=== PATIENT | female | born 1970 | race Caucasian/White ===

== ENCOUNTER 2019-06-22 17:29 | Emergency (ER) | payer OTHER ==
[~2019-06-22] VITALS: Ht 139.7 cm; Wt 61.2 kg
[~2019-06-22 17:29] MED LIST: CELEXA20 MG PO; FLORASTOR250 MG; PANTOPRAZOLE SO40 MG; PRILOSEC20 MG; PRINIVIL10 MG PO; REGLAN10 MG; Z.0.BENAZEPRIL HCL10 PO; Z.0.GABAPENTIN100 MG PO; apriso; celexa; diovan
[2019-06-22] MEDS ORDERED: CYMBALTA20 MG PO (17:49)
[2019-06-22] MEDS ORDERED: NIFEDIPINE ER30 MG PEG (17:49)
[2019-06-22 18:08] LABS: BASOPHILS # (AUTO) 0.1 (0.0-0.1); BASOPHILS % 0.7 % (0.0-1.0); EOSINOPHILS # (AUTO) 0.5 (0.0-0.4); EOSINOPHILS % 5.6 % (0.0-6.0); HEMATOCRIT 40.9 % (34.2-44.1); LYMPHOCYTES # (AUTO) 2.4 (1.0-3.2); LYMPHOCYTES % 26.1 % (18.0-39.1); MEAN CORPUSCULAR HEMOGLOBIN 29.2 pg (28-32); MEAN CORPUSCULAR HGB CONC 34.2 g/dL (31-35); MEAN CORPUSCULAR VOLUME 85.4 fL (81-99); MONOCYTES # (AUTO) 0.4 (0.2-0.8); MONOCYTES % 4.8 % (4.4-11.3); NEUTROPHILS # (AUTO) 5.7 (2.1-6.9); NEUTROPHILS % 62.5 % (38.7-80.0); PLATELET COUNT 303 x10e3/uL (140-360); RED BLOOD COUNT 4.79 x10e6/uL (3.6-5.1); RED CELL DISTRIBUTION WIDTH 13.4 % (11.7-14.4)
[2019-06-22 18:13] LABS: INR 0.83; PROTHROMBIN TIME 11.9 seconds (11.9-14.5)
[2019-06-22 18:14] LABS: PARTIAL THROMBOPLASTIN TIME 25.3 seconds (23.8-35.5)
[2019-06-22 18:23] LABS: ALANINE AMINOTRANSFERASE 50 IU/L (0-55); ALBUMIN 4.1 g/dL (3.5-5.0); ALBUMIN/GLOBULIN RATIO 1.3 (0.8-2.0); ALKALINE PHOSPHATASE 115 IU/L (40-150); ANION GAP 14.4 mmol/L (8-16); BLOOD UREA NITROGEN 11 mg/dL (7-26); BUN/CREATININE RATIO 15 (6-25); CALCIUM 9.8 mg/dL (8.4-10.2); CARBON DIOXIDE 24 mmol/L (22-29); CHLORIDE 102 mmol/L (98-107); CREATINE KINASE 85 IU/L (29-168); CREATININE, SERUM 0.71 mg/dL (0.57-1.11); EST GLOMERULAR FILTRATION RATE > 60 ML/MIN (60-); GLUCOSE 103 mg/dL (74-118); POTASSIUM 3.4 mmol/L (3.5-5.1); SODIUM 137 mmol/L (136-145)
--- NOTE | 2019-06-22 18:30 | Diagnostic Imaging Report ---
EXAMINATION: Head CT HISTORY: Alteration of consciousness, confusion, memory loss COMPARISON: None. TECHNIQUE: Multidetector axial images were obtained without contrast from the foramen magnum to the vertex . The images were reconstructed using brain and bone algorithms. Thin section brain images were reformatted into coronal and sagittal planes. Image quality: Motion/streaking artifact limits the evaluation of the skull base and posterior cranial fossa. Dose modulation, iterative reconstruction, and/or weight based adjustment of the mA/kV was utilized to reduce the radiation dose to as low as reasonably achievable. FINDINGS: Parenchyma: 1. No abnormal densities. 2. No mass or hemorrhage. No CT evidence of acute territorial vascular insult. Extra-axial spaces:No abnormal density. No extra-axial fluid collections Brain volume: Normal for age. Ventricles: No hydrocephalus or displacement. Arteries: No density suggestive of thrombus. Dural sinuses: No abnormal density. Extra-axial spaces: No abnormal density. Incidentally noted tiny Foramen magnum: No mass, Chiari malformation, or basilar invagination. Sella: No obvious mass. Paranasal/mastoid sinuses: Imaged portions unremarkable. Skull/Scalp: No lytic or blastic lesions. No fractures. IMPRESSION: Normal head CT. Signed by: Dr. Judy Hinkle M.D. on 06/22/2019 6:26 PM
[2019-06-22 18:40] LABS: AMPHETAMINES SCREEN,URINE NEGATIVE (NEGATIVE); BENZODIAZEPINES SCREEN,URINE NEGATIVE (NEGATIVE); CLARITY,URINE SL CLOUDY (CLEAR); COLOR,URINE YELLOW (YELLOW); KETONES,URINE NEGATIVE (NEGATIVE); LEUKOCYTE ESTERASE ,URINE NEGATIVE (NEGATIVE); NITRITE,URINE NEGATIVE (NEGATIVE); PHENCYCLIDINE SCREEN,URINE NEGATIVE (NEGATIVE); PROTEIN,URINE DIPSTICK NEGATIVE (NEGATIVE)
[2019-06-22 18:41] LABS: BILIRUBIN,URINE NEGATIVE (NEGATIVE); URINE UROBILINOGEN 0.2 mg/dL (0.2 - 1)
[2019-06-22 18:51] LABS: BACTERIA,URINE RARE /HPF; EPITHELIAL CELLS,URINE MODERATE /LPF
--- NOTE | 2019-06-22 18:52 | Diagnostic Imaging Report ---
EXAMINATION: CHEST 2 VIEWS INDICATION: ^confused ^[id number] ^[id number] COMPARISON: None FINDINGS: PA and lateral views TUBES and LINES: None. LUNGS: Lungs are well inflated. There is no evidence of pneumonia or pulmonary edema. PLEURA: No pleural effusion or pneumothorax. HEART AND MEDIASTINUM: The cardiomediastinal silhouette is unremarkable.. BONES AND SOFT TISSUES: No focal osseous lesions. Soft tissues are unremarkable. UPPER ABDOMEN: Cholecystectomy clips in the upper abdomen. IMPRESSION: No acute thoracic abnormality. Signed by: Dr. Ector Dutton MD on 06/22/2019 6:49 PM
== END 2019-06-22 19:30 | disposition home or self-care (01) ==
LOC: ER 17:29
DX: R41.82 Altered mental status, unspecified (principal); N30.91 Cystitis, unspecified with hematuria; E78.5 Hyperlipidemia, unspecified; I10 Essential (primary) hypertension; F32.9 Major depressive disorder, single episode, unspecified
CPT/HCPCS: 36415; 70450; 71046; 80053; 80307; 81001; 82550; 82553; 84484; 85025; 85610; 85730; 87086; 93005; 99283

== ENCOUNTER 2020-05-14 11:48 | Observation (INO) | payer BC, OTHER ==
[~2020-05-14] VITALS: Ht 139.7 cm; Wt 65.8 kg
[~2020-05-14 11:48] MED LIST changes: +CYMBALTA20 MG PO; +NIFEDIPINE ER30 MG PEG
[2020-05-14] MEDS ORDERED: KETOROLAC TROMETHAMINE 30 MG/ML VIAL IV NR (12:00)
[2020-05-14] MEDS ORDERED: ONDANSETRON HCL INJ 2MG/ML 2ML 2 MG/ML VIAL IV NR (12:00)
[2020-05-14] MEDS ORDERED: HYDRALAZINE HCL 20 MG/ML VIAL IV NR (12:00)
[2020-05-14] MEDS ORDERED: SODIUM CHLORIDE 0.9% 1000ML 1,000 ML IV STA (12:00)
[2020-05-14] MEDS ORDERED: PANTOPRAZOLE 40 MG 10ML VIAL IV NR (12:00)
[2020-05-14 12:21] LABS: BASOPHILS # (AUTO) 0.1 (0.0-0.1); BASOPHILS % 0.8 % (0.0-1.0); EOSINOPHILS # (AUTO) 0.5 (0.0-0.4); EOSINOPHILS % 5.9 % (0.0-6.0); HEMATOCRIT 40.5 % (34.2-44.1); HEMOGLOBIN 13.7 g/dL (12.0-16.0); LYMPHOCYTES # (AUTO) 2.4 (1.0-3.2); LYMPHOCYTES % 28.4 % (18.0-39.1); MEAN CORPUSCULAR HEMOGLOBIN 28.8 pg (28-32); MEAN CORPUSCULAR HGB CONC 33.8 g/dL (31-35); MEAN CORPUSCULAR VOLUME 85.3 fL (81-99); MONOCYTES # (AUTO) 0.5 (0.2-0.8); MONOCYTES % 6.4 % (4.4-11.3); NEUTROPHILS # (AUTO) 4.9 (2.1-6.9); NEUTROPHILS % 58.1 % (38.7-80.0); PLATELET COUNT 309 x10e3/uL (140-360); RED BLOOD COUNT 4.75 x10e6/uL (3.6-5.1); RED CELL DISTRIBUTION WIDTH 13.4 % (11.7-14.4)
[2020-05-14 12:30] LABS: INR 0.84; PROTHROMBIN TIME 11.9 seconds (11.9-14.5)
[2020-05-14 12:31] LABS: PARTIAL THROMBOPLASTIN TIME 24.6 seconds (23.8-35.5)
[2020-05-14 12:38] LABS: ALANINE AMINOTRANSFERASE 93 IU/L (0-55); ALBUMIN 3.9 g/dL (3.5-5.0); ALBUMIN/GLOBULIN RATIO 1.3 (0.8-2.0); ALKALINE PHOSPHATASE 128 IU/L (40-150); ANION GAP 12.2 mmol/L (8-16); BLOOD UREA NITROGEN 9 mg/dL (7-26); BUN/CREATININE RATIO 13 (6-25); CALCIUM 9.8 mg/dL (8.4-10.2); CARBON DIOXIDE 29 mmol/L (22-29); CHLORIDE 103 mmol/L (98-107); CREATINE KINASE 80 IU/L (29-168); CREATININE, SERUM 0.69 mg/dL (0.57-1.11); EST GLOMERULAR FILTRATION RATE > 60 ML/MIN (60-); GLUCOSE 105 mg/dL (74-118); MAGNESIUM 2.1 MG/DL (1.3-2.1); POTASSIUM 3.2 mmol/L (3.5-5.1); SODIUM 141 mmol/L (136-145)
--- NOTE | 2020-05-14 12:54 | Diagnostic Imaging Report ---
History: 49-year-old female with headaches, high blood pressure Comparison studies: Head CT 06/22/2019 Technique: Axial images were obtained from the skull base to the vertex. Coronal and sagittal reconstructions obtained from the axial data. Dose modulation, iterative reconstruction, and/or weight based adjustment of the mA/kV was utilized to reduce the radiation dose to as low as reasonably achievable. Intravenous contrast: None Findings: Scalp/skull: No abnormalities. No fractures, blastic or lytic lesions. 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 No other mass or fluid collection. Brain sulci: Appropriate size for patient's age. Ventricles: Normal in size and configuration. No hydrocephalus. Parenchyma: No abnormal densities. No masses, hemorrhage, acute or chronic cortical vascular insults. Sellar/suprasellar region: Partial empty sella is is nonspecific and is unchanged from 06/22/2019. Craniocervical junction: Patent foramen magnum. No Chiari one malformation. IMPRESSION: No acute abnormalities. A preliminary report was provided by Dr. Villasenor on 05/14/2020 at 12:[address] Harrell agrees with the preliminary findings of this report. Signed by: Dr. Nikhil Harrell M.D. on 05/14/2020 12:57 PM
--- NOTE | 2020-05-14 13:29 | Emergency Department Note ---
History of Present Illnes History of Present Illness Chief Complaint: Hypertension History of Present Illness This is a 49 year old female LAST NIGHT PATIENT BEGAN HAVING PAIN TO ENTIRE BODY, "SQUEEZING" ON CHEST. HEADACHE. N/V AFTER BREAKFAST. C/O OF ELEVATED BP @HOME (194/107). 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 Matcher Operator Required: No Onset (how long ago): day(s) (STARTED LAST NIGHT ~2129) Location: ALL OVER ACHY, SQUEEZING IN CHEST Quality: ACHY/SQUEEZING Radiation: Reports non-radiation Severity: severe Onset quality: gradual Timing of current episode: constant Progression: unchanged Chronicity: new Context: Denies recent illness Relieving factors: none Exacerbating factors: none Associated symptoms: Reports chest pain, Reports headaches, Reports malaise, Reports nausea/vomiting Treatments prior to arrival: none Past Medical/Family History Physician Review I have reviewed the patient's past medical and family history. Any updates have been documented here. Past Medical History Recent Fever: No Clinical Suspicion of Infectio: No New/Unexplained Change in Ment: No Past Medical History: Hypertension, Depression, Hyperlipedemia Past Surgical History: Cholecysctectomy, Hysterectomy Other Surgery: KNEE, RENAL STENT Social History Smoking Cessation: Never Smoker Counseling Performed: No Alcohol Use: None Any Illegal Drug Use: No TB Exposure/Symptoms: No Physically hurt or threatened: No Family History Family history of heart diseas: No Other Last Tetanus: UNKOWN Any Pre-Existing Lines (PICC,: No Review of Systems Review of Systems Constitutional: Reports as per HPI, Reports malaise EENTM: Reports no symptoms Cardiovascular: Reports as per HPI Respiratory: Reports no symptoms Gastrointestinal: Reports no symptoms Genitourinary: Reports no symptoms Musculoskeletal: Reports no symptoms Integumentary: Reports no symptoms Neurological: Reports as per HPI, Reports headache Psychological: Reports no symptoms Endocrine: Reports no symptoms Hematological/Lymphatic: Reports no symptoms Review of other systems: All other systems negative Physical Exam Related Data Allergies: Coded Allergies: cefotaxime (Verified Allergy, Severe, ARTHYMIA/RASH, 07/22/12) ofloxacin (Verified Allergy, Severe, ARRTHYMIA/RASH, 07/22/12) codeine (Verified Allergy, Mild, FAINT/VOMIT, 07/22/12) Triage Vital Signs Vital Signs Date Time Temp Pulse Resp B/P (MAP) Pulse Ox O2 Delivery O2 Flow Rate FiO2 05/14/20 11:51 98.1 58 18 175/93 100 Room Air Vital signs reviewed: Yes Physical Exam CONSTITUTIONAL Constitutional: Present well-developed, Present well-nourished HENT HENT: Present normocephalic, Present atraumatic, Present oropharynx clear/moist, Present nose normal HENT L/R: Present left ext ear normal, Present right ext ear normal EYES Eyes: Reports PERRL, Reports conjunctivae normal NECK Neck: Present ROM normal PULMONARY Pulmonary: Present effort normal, Present breath sounds normal CARDIOVASCULAR Cardiovascular: Present regular rhythm, Present heart sounds normal, Present capillary refill normal, Present normal rate GASTROINTESTINAL Abdominal: Present soft, Present nontender, Present bowel sounds normal GENITOURINARY Genitourinary: Present exam deferred SKIN Skin: Present warm, Present dry MUSCULOSKELETAL Musculoskeletal: Present ROM normal NEUROLOGICAL Neurological: Present alert, Present oriented x 3, Present no gross motor or sensory deficits; Absent cranial nerve deficit, Absent sensory deficit, Absent abnormal gait, Absent weakness PSYCHOLOGICAL Psychological: Present mood/affect normal, Present judgement normal Results Laboratory Result Diagram: 05/14/20 1213 05/14/20 1213 Laboratory Laboratory Tests Test 05/14/20 12:13 White Blood Count 8.34 x10e3/uL (4.8-10.8) Red Blood Count 4.75 x10e6/uL (3.6-5.1) Hemoglobin 13.7 g/dL (12.0-16.0) Hematocrit 40.5 % (34.2-44.1) Mean Corpuscular Volume 85.3 fL (81-99) Mean Corpuscular Hemoglobin 28.8 pg (28-32) Mean Corpuscular Hemoglobin Concent 33.8 g/dL (31-35) Red Cell Distribution Width 13.4 % (11.7-14.4) Platelet Count 309 x10e3/uL (140-360) Neutrophils (%) (Auto) 58.1 % (38.7-80.0) Lymphocytes (%) (Auto) 28.4 % (18.0-39.1) Monocytes (%) (Auto) 6.4 % (4.4-11.3) Eosinophils (%) (Auto) 5.9 % (0.0-6.0) Basophils (%) (Auto) 0.8 % (0.0-1.0) Neutrophils # (Auto) 4.9 (2.1-6.9) Lymphocytes # (Auto) 2.4 (1.0-3.2) Monocytes # (Auto) 0.5 (0.2-0.8) Eosinophils # (Auto) 0.5 (0.0-0.4) Basophils # (Auto) 0.1 (0.0-0.1) Absolute Immature Granulocyte (auto 0.03 x10e3/uL (0-0.1) Prothrombin Time 11.9 seconds (11.9-14.5) Prothromb Time International Ratio 0.84 Activated Partial Thromboplast Time 24.6 seconds (23.8-35.5) Sodium Level 141 mmol/L (136-145) Potassium Level 3.2 mmol/L (3.5-5.1) Chloride Level 103 mmol/L (98-107) Carbon Dioxide Level 29 mmol/L (22-29) Anion Gap 12.2 mmol/L (8-16) Blood Urea Nitrogen 9 mg/dL (7-26) Creatinine 0.69 mg/dL (0.57-1.11) Estimat Glomerular Filtration Rate > 60 ML/MIN (60-) BUN/Creatinine Ratio 13 (6-25) Glucose Level 105 mg/dL (74-118) Calcium Level 9.8 mg/dL (8.4-10.2) Magnesium Level 2.1 MG/DL (1.3-2.1) Total Bilirubin 0.4 mg/dL (0.2-1.2) Aspartate Amino Transf (AST/SGOT) 57 IU/L (5-34) Alanine Aminotransferase (ALT/SGPT) 93 IU/L (0-55) Alkaline Phosphatase 128 IU/L (40-150) Creatine Kinase 80 IU/L (29-168) Creatine Kinase MB 1.10 ng/mL (0-5.0) Troponin I 0.004 ng/mL (0-0.300) Total Protein 7.0 g/dL (6.5-8.1) Albumin 3.9 g/dL (3.5-5.0) Globulin 3.1 g/dL (2.3-3.5) Albumin/Globulin Ratio 1.3 (0.8-2.0) Lab results reviewed: Yes Imaging Imaging results reviewed: Yes Impressions History: 49-year-old female with headaches, high blood pressure Comparison studies: Head CT 06/22/2019 Technique: Axial images were obtained from the skull base to the vertex. Coronal and sagittal reconstructions obtained from the axial data. Dose modulation, iterative reconstruction, and/or weight based adjustment of the mA/kV was utilized to reduce the radiation dose to as low as reasonably achievable. Intravenous contrast: None Findings: Scalp/skull: No abnormalities. No fractures, blastic or lytic lesions. 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 No other mass or fluid collection. Brain sulci: Appropriate size for patient's age. Ventricles: Normal in size and configuration. No hydrocephalus. Parenchyma: No abnormal densities. No masses, hemorrhage, acute or chronic cortical vascular insults. Sellar/suprasellar region: Partial empty sella is is nonspecific and is unchanged from 06/22/2019. Craniocervical junction: Patent foramen magnum. No Chiari one malformation. IMPRESSION: No acute abnormalities. A preliminary report was provided by Dr. Villasenor on 05/14/2020 at 12:[address] Harrell agrees with the preliminary findings of this report. Signed by: Dr. Nikhil Harrell M.D. on 05/14/2020 12:57 PM EXAMINATION: CHEST SINGLE (PORTABLE) INDICATION: Chest pain. COMPARISON: Multiple prior chest x-rays including most recent on 06/22/2019 FINDINGS: TUBES and LINES: None. LUNGS: Normal lung volumes. Lungs are clear. No consolidations. PLEURA: No pleural effusion or pneumothorax. HEART AND MEDIASTINUM: The cardiomediastinal silhouette is unremarkable. BONES AND SOFT TISSUES: No acute osseous lesion. Soft tissues are unremarkable. UPPER ABDOMEN: No free air under the diaphragm. IMPRESSION: No acute thoracic radiographic abnormality. Signed by: Saqib Rowe MD on 05/14/2020 1:36 PM Procedures 12 Lead ECG Interpretation ECG Interpretation : ECG: ECG 1 Matcher Operator: Interpreted by ED physician Date: May 14, 2020 Time: 12:17 Rhythm: sinus bradycardia Rate: bradycardia BPM: 56 QRS axis: normal ST segments normal: Yes T wave inversion: V1 Other findings: LVH Clinical Impression: abnormal ECG Assessment & Plan Medical Decision Making MDM PT WITH H/O HTN & HLD PRESENTS W/ CP, N/V, ACHY ALL OVER AND HEADACHE - CHECK CBC, CHEM, ECG, CARDIACS, CXR, COVID SWAB, CT BRAIN - R/O STEMI/NSTEMI, RENAL INSUFF, DEHYDRATION, PNEUMONIA, COVID19, CEREBRAL BLEED. Reassessment Reassessment PT STILL VOMITING DESPITE ZOFRAN - WILL ADMIT FOR IVF'S, R/O ACS Assessment & Plan Final Impression: (1) Chest pain (2) Vomiting Depart Disposition: ADMITTED Last Vital Signs Date Time Temp Pulse Resp B/P (MAP) Pulse Ox O2 Delivery O2 Flow Rate FiO2 05/14/20 13:17 74 16 136/76 98 Room Air 05/14/20 11:51 98.1 Home Meds Reported Medications Nifedipine (NIFEDIPINE ER) 30 Mg Tablet.er, 1 TAB PEG DAILY 06/22/19 Duloxetine Hcl (CYMBALTA) 20 Mg Capcr, 20 MG PO DAILY, #30 CAP 06/22/19 Lisinopril (PRINIVIL) 10 Mg Tablet, 10 MG PO DAILY 01/09/14 Medications in the ED Pantoprazole Sodium 40 mg ONCE IV Last administered on 05/14/20at 12:54; Admin Dose 40 MG; Start 05/14/20 at 12:00; Stop 05/14/20 at 13:59 Ondansetron HCl 4 mg ONCE IV Last administered on 05/14/20at 12:54; Admin Dose 4 MG; Start 05/14/20 at 12:00; Stop 05/14/20 at 13:59 Sodium Chloride 1,000 ml @ 0 mls/hr Q0M STAT IV Last administered on 05/14/20at 12:54; Admin Dose 999 MLS/HR; Start 05/14/20 at 12:00; Stop 05/14/20 at 12:03; Status DC Hydralazine HCl 10 mg NOW IV Last administered on 05/14/20at 12:54; Admin Dose 10 MG; Start 05/14/20 at 12:00; Stop 05/14/20 at 13:59 Ketorolac Tromethamine 30 mg ONCE IV Last administered on 05/14/20at 12:54; Admin Dose 30 MG; Start 05/14/20 at 12:00; Stop 05/14/20 at 13:59 DANY STOKES MD May 14, 2020 13:29
[2020-05-14] MEDS ORDERED: KCL 20MEQ/.9 SOD CHL 1,000 ML IV ONE ×2 (13:30→14:15)
--- NOTE | 2020-05-14 13:39 | Diagnostic Imaging Report ---
EXAMINATION: CHEST SINGLE (PORTABLE) INDICATION: Chest pain. COMPARISON: Multiple prior chest x-rays including most recent on 06/22/2019 FINDINGS: TUBES and LINES: None. LUNGS: Normal lung volumes. Lungs are clear. No consolidations. PLEURA: No pleural effusion or pneumothorax. HEART AND MEDIASTINUM: The cardiomediastinal silhouette is unremarkable. BONES AND SOFT TISSUES: No acute osseous lesion. Soft tissues are unremarkable. UPPER ABDOMEN: No free air under the diaphragm. IMPRESSION: No acute thoracic radiographic abnormality. Signed by: Saqib Rowe MD on 05/14/2020 1:36 PM
--- NOTE | 2020-05-14 13:46 | NUR ---
patient up and walked to restroom, upont return patient stated she didnt feel well. assisted back into bed and back on monitor. notified ER MD of patient concern
[2020-05-14] MEDS ORDERED: PROMETHAZINE 12.5MG/ NACL 0.9% 12.5 MG/50 ML BAG IV ONE (14:00)
[2020-05-14] MEDS ORDERED: PROMETHAZINE 12.5MG/ NACL 0.9% 12.5 MG/50 ML BAG IV PRN (14:15)
[2020-05-14] MEDS ORDERED: ONDANSETRON HCL INJ 2MG/ML 2ML 2 MG/ML VIAL IV PRN (14:15)
[2020-05-14] MEDS ORDERED: ESCITALOPRAM OX10 MG PO (14:31)
[2020-05-14 15:16] LABS: BILIRUBIN,URINE NEGATIVE (NEGATIVE); CLARITY,URINE HAZY (CLEAR); COLOR,URINE YELLOW (YELLOW); KETONES,URINE NEGATIVE (NEGATIVE); LEUKOCYTE ESTERASE ,URINE NEGATIVE (NEGATIVE); NITRITE,URINE NEGATIVE (NEGATIVE); PROTEIN,URINE DIPSTICK NEGATIVE (NEGATIVE); URINE UROBILINOGEN 0.2 mg/dL (0.2 - 1)
--- NOTE | 2020-05-14 15:16 | NUR ---
Recieved patient from ER. Patient A/O x3, even respirations on RA. No s/s of distress. Call light in reach will continue to monitor.
[2020-05-14 15:20] LABS: RBC,URINE 0-5 /HPF (0-5); WBC,URINE (MAN) 0-5 /HPF (0-5)
[2020-05-14 15:21] LABS: AMORPHOUS SEDIMENT,URINE FEW (FEW); BACTERIA,URINE FEW /HPF; EPITHELIAL CELLS,URINE RARE /LPF
[2020-05-14 16:11] VITALS: BP 138/78
[2020-05-14 16:14] VITALS: BP 138/78
[2020-05-14 17:27] VITALS: BP 138/78
[2020-05-14] MEDS: ENOXAPARIN SOD INJ 40 MG/0.4 ML SYR SC SCH (17:50)
[2020-05-14 18:20] LABS: CREATINE KINASE 65 IU/L (29-168)
[2020-05-14 20:15] VITALS: BP 98/55
--- NOTE | 2020-05-14 20:37 | History and Physical ---
PCP: Dr. Esau Carrillo at [facility]. CHIEF COMPLAINT: Generalized weakness, headache, elevated blood pressure. HISTORY OF PRESENT ILLNESS: This is a 49-year-old female with past medical history of hypertension and high cholesterol, presented to the ER with complaints of generalized weakness, chest tightness, body aches, malaise, nausea, vomiting, headache for the past few days. Blood pressure at home this morning was 194/107. She reports she started feeling the symptoms on and took some medication and went to bed. Saturday has been worse. This morning, she woke up and has been nauseous, vomiting with severe headache. She denies any fever, chills, shortness of breath, cough, dysuria, hematuria, abdominal pain. She denies any ill contacts. She reports had tested positive on March 24 for COVID-19. She quarantined herself and felt better. She then called her PCP on April 23 a month later with complaints of shortness of breath. At that time, she reports was given steroids for possible post COVID syndrome. She reports was feeling okay right up until early this week. In the ER, CT brain was negative, chest x-ray was also unremarkable. Labs were unremarkable except for potassium of 3.2. She was given IV fluids, NSAIDs, and antiemetics. PAST MEDICAL HISTORY: 1. Hypertension. 2. COVID-19. PAST SURGICAL HISTORY: 1. Hysterectomy. 2. Renal stent. 3. Cyst removal from the knee. FAMILY MEDICAL HISTORY: Unknown. SOCIAL HISTORY: She denies any tobacco, alcohol, or illicit drug use. ALLERGIES: CODEINE, FLUOXETINE, AND SEVERAL TOXINS. REVIEW OF SYSTEMS: 12 systems reviewed and negative except as reported in HPI. PHYSICAL EXAMINATION: VITAL SIGNS: Temperature 98.8, pulse is 83, respirations 20, blood pressure 129/74, pulse ox is 99% on room air. GENERAL: Fatigue, malaise. HEENT: Normocephalic and atraumatic. NECK: Supple. LUNGS: Decreased breath sounds. CARDIOVASCULAR: Regular rate and rhythm. GI: Soft and nontender. NEUROLOGIC: Alert, awake, and oriented x3. MUSCULOSKELETAL: Moves all extremities. No edema. SKIN: Dry. PSYCH: Calm. LABORATORY DATA: WBC 8.34, hemoglobin 13.7, hematocrit 40.5, and platelets 309. Sodium 141, potassium 3.2, BUN 9, creatinine 0.69, estimated GFR is greater than 60, glucose 105, magnesium 2.1. AST 57, ALT 93, alkaline phosphate 128. CK 80, troponin I 0.004. Albumin 3.9. PT 11.9, INR 0.84, APTT 24.6. UA is negative. COVID PCR is positive. Urine culture pending. CT brain, no acute abnormalities. Chest x-ray, no acute thoracic radiographic abnormalities. IMPRESSION AND PLAN: 1. Accelerated hypertension. We will resume home dose of nifedipine and lisinopril. We will also treat with hydralazine IV as needed. 2. Coronavirus disease 2019. She was initially tested positive 7 weeks ago. ID and Pulmonary have been consulted. 3. Headache. CT brain negative. No dizziness, likely due to elevated blood pressure. We will continue to monitor closely. 4. Hypokalemia. We will replace and recheck. 5. Elevated LFTs. We will monitor. 6. Deep vein thrombosis prophylaxis, Lovenox subcu. Plan is to continue IV fluids, antiemetics, and we will trend troponins. We will check influenza A and B and echocardiogram for further evaluation. Dictated by PRICILLA Cole Tushar Garza MD MY/MODL /[id number]
--- NOTE | 2020-05-14 20:44 | NUR ---
Pulmonary [id number] thanks
--- NOTE | 2020-05-14 20:45 | NUR ---
PATIENT IS RESTING IN BED IN STABLE CONDITION, NO SIGNS OF RESPIRATORY DISTRESS NOTED. O2 SATURATION IS AT 97% ON ROOM AIR AND PATIENT VOICES NO PAIN AT THIS TIME. IV FLUIDS ARE RUNNING AT ORDERED RATE AND PATIENT VOICED UNDERSTANDING TO USE CALL LIGHT FOR ASSISTANCE. BED IS IN LOW POSITION, BOTH SIDE RAILS ARE UP, CALL LIGHT IS WITHIN EASY REACH, WILL CONTINUE TO MONITOR.
[2020-05-14 20:56] VITALS: BP 98/55
--- NOTE | 2020-05-14 22:27 | Consultation ---
DATE OF CONSULTATION: 05/14/2020 Pulmonary Medicine Consult REASON FOR REFERRAL: COVID syndrome. HISTORY OF PRESENT ILLNESS: Ms. Eddy is a pleasant 49-year-old female with shortness of breath. The patient recently got sick on March 19, 2020 which she had a fever symptoms. The patient had coronavirus test on March 24, 2020 and this was positive. The patient need to check herself quickly because of just the recent month before she had two close family members who were sick with coronavirus. The patient did not get any medications at the time as she had a relatively milder illness. However, now in the last two weeks, the patient has been having increasing shortness of breath. She did get some antibiotics and some prednisone from her doctor during this time. However, she has had propagation of the headaches, body aches, and blood pressure increased. Due to this worsening, she comes to the emergency room. No asthma, no allergies, no chronic lung disease. PAST MEDICAL HISTORY: Hypertension and hyperlipidemia. MEDICATIONS: Lisinopril, nifedipine, and escitalopram. ALLERGIES: CEFOTAXIME, CODEINE, AND OFLOXACIN. FAMILY HISTORY: Noncontributory. SOCIAL HISTORY: No smoking. No drinking. No drugs. 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 She lives with her and two teenage sons. REVIEW OF SYSTEMS: GENERAL: No weight changes. OPHTHALMOLOGIC: No vision changes. ENDOCRINE: No known thyroid disease. PULMONARY: No hemoptysis. CARDIAC: No heart attack. GI: No constipation. : No blood in urine. MUSCULOSKELETAL: No significant arthritis. DERMATOLOGIC: No rash. NEUROLOGIC: No seizure. PSYCHIATRIC: No depression. PHYSICAL EXAMINATION: GENERAL: The patient is without fever at this time. VITAL SIGNS: Noted per the chart record. Heart rate on presentation was 58, blood pressure 175/93, and 100% oxygen saturation on room air. GENERAL: In no acute distress, mildly anxious, but otherwise mostly unremarkable. HEENT: Normocephalic atraumatic. NECK: Supple. Throat midline. LUNGS: Bilateral air entry, limited, but clear. CARDIOVASCULAR: S1 and S2. No murmurs, rubs, or gallops. ABDOMEN: Soft, nontender, mildly obese. EXTREMITIES: No clubbing. No cyanosis. No edema. INTEGUMENT: No rash or purpura. LABORATORY DATA: CBC unremarkable with reasonable lymphocyte present. Coagulation time normal. Chemistry; potassium 3.2, creatinine 0.7, AST 57, and ALT 93. Alkaline phosphatase 128. Albumin 3.9, TSH is normal. Coronavirus PCR detected today. Influenza A and B antigens negative. Chest x-ray with clear lungs. Brain CT with no acute changes. IMPRESSION AND PLAN: 1. Syndrome of dyspnea, headache, elevated blood pressure, not otherwise specified. Possible sepsis, Post COVID syndrome, possible other. 2. Elevated LFTs. 3. Post COVID-19 infection, March 2020. 4. Nonspecific nausea, vomiting syndrome, gastroenteritis. 5. 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 6. Hypertension with emergency. 7. Hyperlipidemia. Recheck LFTs if trended. Check RSV testing for Respiratory syncytial virus. Follow up clinically. Follow up on IV fluid and potassium intake. We will check a few more biomarkers to ensure that this condition is suppressed and as of yet, there is no evidence of any active cytokine stone syndrome with isolated LFT elevation. We will follow the abnormal LFTs for any sign of any immunologic syndrome/cytokine storm syndrome that may have passed, but as of now, the elevated LFTs are in isolation. Thank you very much, Dr. Garza. Please call for questions. Fady Alvarado MD GMPeace/MODL /[id number]
[2020-05-15] VITALS (8 sets, daily range): BP systolic 112–153; BP diastolic 58–85
[2020-05-15] MEDS ORDERED: KCL 20MEQ/.9 SOD CHL 1,000 ML IV ONE
[2020-05-15] MEDS: ACETAMINOPHEN 325 MG TAB PO PRN ×2 (06:30→20:07)
--- NOTE | 2020-05-15 07:00 | NUR ---
Received patient resting in bed no s/s of distress. Bed low, wheels locked, side rails x2. Call light in reach will continue to monitor patient.
[2020-05-15 07:11] LABS: BASOPHILS # (AUTO) 0.1 (0.0-0.1); BASOPHILS % 0.6 % (0.0-1.0); EOSINOPHILS # (AUTO) 0.3 (0.0-0.4); EOSINOPHILS % 2.7 % (0.0-6.0); HEMATOCRIT 36.2 % (34.2-44.1); LYMPHOCYTES # (AUTO) 2.5 (1.0-3.2); LYMPHOCYTES % 27.1 % (18.0-39.1); MEAN CORPUSCULAR HEMOGLOBIN 28.7 pg (28-32); MEAN CORPUSCULAR HGB CONC 33.1 g/dL (31-35); MEAN CORPUSCULAR VOLUME 86.6 fL (81-99); MONOCYTES # (AUTO) 0.5 (0.2-0.8); NEUTROPHILS % 64.3 % (38.7-80.0); PLATELET COUNT 264 x10e3/uL (140-360); RED BLOOD COUNT 4.18 x10e6/uL (3.6-5.1)
[2020-05-15 08:19] LABS: ALBUMIN 3.2 g/dL (3.5-5.0); BILIRUBIN,DIRECT 0.2 mg/dL (0.0-0.5)
[2020-05-15 08:22] LABS: ALANINE AMINOTRANSFERASE 61 IU/L (0-55); ALBUMIN 3.1 g/dL (3.5-5.0); ALBUMIN/GLOBULIN RATIO 1.3 (0.8-2.0); ALKALINE PHOSPHATASE 92 IU/L (40-150); ANION GAP 10.6 mmol/L (8-16); BLOOD UREA NITROGEN 11 mg/dL (7-26); BUN/CREATININE RATIO 17 (6-25); CALCIUM 8.4 mg/dL (8.4-10.2); CARBON DIOXIDE 25 mmol/L (22-29); CHLORIDE 108 mmol/L (98-107); CHOL/HDL RATIO 4.9 (3.0-3.6); CHOLESTEROL 178 MD/DL (0-199); CREATINE KINASE 55 IU/L (29-168); CREATININE, SERUM 0.63 mg/dL (0.57-1.11); EST GLOMERULAR FILTRATION RATE > 60 ML/MIN (60-); GLUCOSE 104 mg/dL (74-118); HDL CHOLESTEROL 36 MG/DL (40-60); LDL CHOLESTEROL 109 MG/DL (60-130); POTASSIUM 3.6 mmol/L (3.5-5.1); SODIUM 140 mmol/L (136-145); TRIGLYCERIDES 166 MG/DL (0-149)
[2020-05-15] MEDS: ESCITALOPRAM OXALATE 10 MG TAB PO SCH (08:31)
[2020-05-15] MEDS: LISINOPRIL 10 MG TAB PO SCH (08:31)
[2020-05-15] MEDS: PANTOPRAZOLE 40 MG 10ML VIAL IV SCH (08:31)
[2020-05-15] MEDS: ASPIRIN 81 MG ENTERIC COATED PO SCH (08:31)
[2020-05-15] MEDS: NIFEDIPINE CR 30 MG TAB PO SCH (08:42)
[2020-05-15 08:44] LABS: FERRITIN 42.44 ng/mL (4.63-204.00)
[2020-05-15] MEDS ORDERED: NIFEDIPINE CR 30 MG TAB PO SCH (09:00)
[2020-05-15] MEDS ORDERED: METHYLPREDNISOLONE SOD SUCC 40 MG/ML VIAL 1ML IV SCH (11:15)
--- NOTE | 2020-05-15 13:13 | NUR ---
Generalized weakness, headache, elevated blood pressure. HISTORY OF PRESENT ILLNESS: This is a 49-year-old female with past medical history of hypertension and high cholesterol, presented to the ER with complaints of generalized weakness, chest tightness, body aches, malaise, nausea, vomiting, headache for the past few days. Blood pressure at home this morning was 194/107. She reports she started feeling the symptoms on and took some medication and went to bed. Saturday has been worse. This morning, she woke up and has been nauseous, vomiting with severe headache. She denies any fever, chills, shortness of breath, cough, dysuria, hematuria, abdominal pain. She denies any ill contacts. She reports had tested positive on March 24 for COVID-19. She quarantined herself and felt better. She then called her PCP on April 23 a month later with complaints of shortness of breath. At that time, she reports was given steroids for possible post COVID syndrome. She reports was feeling okay right up until early this week. In the ER, CT brain was negative, chest x-ray was also unremarkable. Labs were unremarkable except for potassium of 3.2. She was given IV fluids, NSAIDs, and antiemetics. PAST MEDICAL HISTORY: 1. Hypertension. 2. COVID-19. PAST SURGICAL HISTORY: 1. Hysterectomy. 2. Renal stent. 3. Cyst removal from the knee. FAMILY MEDICAL HISTORY: Unknown. SOCIAL HISTORY: She denies any tobacco, alcohol, or illicit drug use. ALLERGIES: CODEINE, FLUOXETINE, AND SEVERAL TOXINS. dictated
--- NOTE | 2020-05-15 13:57 | NUR ---
DATE 05/15/2020 Pulmonary Medicine Progress Note SUBJECTIVE: Ra fio2 97% saturation feels about the same LFTs mildly decreased from yesterday noted mild nausea REVIEW OF SYSTEMS: no headaches, no rash PHYSICAL EXAMINATION: VITAL SIGNS: Noted per the chart record. GENERAL: no acute distress, looks weak and with low energy HEENT: Normocephalic atraumatic. NECK: Supple. Throat midline. LUNGS: Bilateral air entry, limited, but clear. CARDIOVASCULAR: S1 and S2. No murmurs, rubs, or gallops. ABDOMEN: Soft, nontender, mildly obese. EXTREMITIES: No clubbing. No cyanosis. No edema. INTEGUMENT: No rash or purpura. LABORATORY DATA: ast 27, alt 61. other labs per EMR IMPRESSION AND PLAN: 1. Syndrome of dyspnea, headache, elevated blood pressure, not otherwise specified. Possible sepsis, possible Post COVID syndrome, possible other. 2. Elevated LFTs. 3. Post COVID-19 infection, March 2020. 4. Nonspecific nausea, vomiting syndrome, gastroenteritis. 5. 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 6. Hypertension with emergency. 7. Hyperlipidemia. There is a definite inflammatory process that is present. Recheck LFTs intermittently. Trial of moderate dose steroids for possible post COVID immunologic syndrome. If no competing diagnosis is found, patient can be considered for low dose prednisone (5-10 mg) for a few weeks Await CRP and fibrinogen markers RSV negative Any non-COVID inflammatory workup per designated (?mono, hepatitis, CTD, viral, other) if felt necessary to address at this time Thank you very much, Dr. Garza. Please call for questions.
--- NOTE | 2020-05-15 15:45 | Consultation ---
DATE OF CONSULTATION: REASON FOR CONSULTATION: COVID-19. HISTORY OF PRESENT ILLNESS: This patient is a 49-year-old female. She was diagnosed with COVID-19 back in March 15. The patient was doing well, few weeks later started to have some shortness of breath. She called her PCP, who gave her steroid and antibiotic azithromycin. She got better, but then she is just having fever, bad headache, so she came here. PAST MEDICAL HISTORY: History of hypertension, hypercholesteremia. PAST SURGICAL HISTORY: As above. ALLERGIES: NKA. SOCIAL HISTORY: There is no smoking, drug abuse, or alcohol abuse. FAMILY HISTORY: Otherwise, unremarkable. The patient comes into us with headache. Her blood pressure was elevated. PHYSICAL EXAMINATION: GENERAL: She is currently alert, oriented. VITAL SIGNS: Stable, currently afebrile. HEENT: She is not icteric. NECK: Supple. CHEST: Clear bilateral. HEART: S1, S2. ABDOMEN: Soft. Bowel sounds present. EXTREMITIES: No edema. LABORATORY DATA: Reviewed. White count 9.38, hemoglobin of 12. Her sodium of 140, potassium 3.6, creatinine 0.63. Liver enzyme within normal limit. ALT slightly elevated at 61. Her COVID-19 on May 14, 2019, came back positive. The patient as mentioned above, she is not hypoxemic, O2 saturation is 99% of room air. Her chest x-ray showed no acute finding on her chest CT, and she had a brain CT, which was negative. IMPRESSION: Fever and headache, probably due to viral. The patient has no fever since admission. She is not hypoxemic. Can discontinue steroid. Supportive care as ordered IV fluid. The patient will be discharged home with controlling her symptoms for headache and nausea as needed. She can take her home blood pressure medication. MD MELINDA Ling/HEMAL /[id number]
[2020-05-15] MEDS: ENOXAPARIN SOD INJ 40 MG/0.4 ML SYR SC SCH (18:02)
[2020-05-15] MEDS ORDERED: SODIUM CHLORIDE 0.9% 1000ML 1,000 ML IV SCH (19:30)
--- NOTE | 2020-05-15 20:21 | Progress Note ---
DATE: 05/15/2020 CONSULTANTS: 1. Dr. Loza, ID. 2. Dr. Alvarado, Pulmonology. SUBJECTIVE: The patient reports she is less nauseous today. She, however, feels like her body ache and headache has not improved much. She denies any chest pain, shortness of breath, cough, fever, or chills. OBJECTIVE: VITAL SIGNS: Temperature 98.1, pulse is 60, respirations 17, blood pressure 134/74, pulse ox is 97% on room air. GENERAL: No acute distress. HEENT: Normocephalic and atraumatic. NECK: Supple. LUNGS: Clear to auscultation. CARDIOVASCULAR: Regular rate and rhythm. GI: Soft and nontender. NEUROLOGIC: Alert, awake, and oriented x3. Fatigued. MUSCULOSKELETAL: Moves all extremities. SKIN: Dry. PSYCH: Calm. LABORATORY DATA: WBC 9.39, hemoglobin 12.0, hematocrit 36.2, and platelets 264. Sodium 140, potassium 3.6, BUN 11, creatinine 0.63, estimated GFR greater than 60, calcium 8.4, AST 26, ALT 61. CK 57, troponin I 0.001. Albumin 3.1, triglycerides 166. TSH 1.488. Influenza A and B negative. RSV negative. IMPRESSION: 1. Hypertension. Continue nifedipine and lisinopril. Blood pressure is stable now. 2. Post coronavirus disease 2019 syndrome. ID and Pulmonary on the case. Continue supportive care with pain management and antiemetics as needed. 3. Hypokalemia, replaced. 4. Elevated LFTs, trending down. 5. Questionable viral enteritis. Continue supportive care as needed. 6. Deep vein thrombosis prophylaxis, Lovenox subcu. PLAN: To continue supportive care, anticipate discharge home tomorrow if continues to improve. Dictated by PRICILLA Cole Tushar Garza MD MY/MODL /[id number]
[2020-05-15] MEDS: SODIUM CHLORIDE 0.9% 1000ML 1,000 ML IV SCH (23:45)
[2020-05-16 01:01] VITALS: BP 114/69
[2020-05-16 06:46] LABS: ALBUMIN 3.3 g/dL (3.5-5.0); BILIRUBIN,DIRECT 0.1 mg/dL (0.0-0.5)
[2020-05-16 08:14] VITALS: BP 114/69
[2020-05-16] MEDS: PANTOPRAZOLE 40 MG 10ML VIAL IV SCH (10:23)
[2020-05-16] MEDS: ASPIRIN 81 MG ENTERIC COATED PO SCH (10:23)
[2020-05-16] MEDS: ESCITALOPRAM OXALATE 10 MG TAB PO SCH (10:24)
[2020-05-16] MEDS: NIFEDIPINE CR 30 MG TAB PO SCH (10:24)
[2020-05-16] MEDS: LISINOPRIL 10 MG TAB PO SCH (10:24)
[2020-05-16] MEDS: SODIUM CHLORIDE 0.9% 1000ML 1,000 ML IV SCH ×2 (10:25→21:16)
--- NOTE | 2020-05-16 11:46 | NUR ---
INFECTIOUS DISEASE PROGRESS NOTE DR. ERICKSON ANGELES REASON FOR CONSULTATION: COVID-19. HISTORY OF PRESENT ILLNESS: This patient is a 49-year-old female. She was diagnosed with COVID-19 back in March 15. The patient was doing well, few weeks later started to have some shortness of breath. She called her PCP, who gave her steroid and antibiotic azithromycin. She got better, but then she is just having fever, bad headache, so she came here. PAST MEDICAL HISTORY: History of hypertension, hypercholesteremia. ALLERGIES: NKA. PHYSICAL EXAMINATION: GENERAL: She is currently alert, oriented. VITAL SIGNS: Stable, currently afebrile. HEENT: She is not icteric. NECK: Supple. CHEST: Clear bilateral. HEART: S1, S2. ABDOMEN: Soft. Bowel sounds present. EXTREMITIES: No edema. LABORATORY DATA: Reviewed. per chart RADIOLOGY: reviewed IMPRESSION: Fever and headache, probably due to viral. Covid on mar 24, no longer infectious muscle aches HTN Abdominal pain PLAN: will get a CT abdomen pelvis because of the abdominal pain if negative, pt can discharge with prednisone 5mg a day come see me in 2 weeks in clinic Trixie Flores MSN, LEARNING DISABILITIES SPECIALIST, AGACNP-BC
[2020-05-16] MEDS ORDERED: IOPAMIDOL 370 MG/ML 200 ML INFUS..BTL INJ ONE (11:47)
[2020-05-16] MEDS ORDERED: SODIUM CHLORIDE 0.9% 50ML 50 ML ONE (11:47)
--- NOTE | 2020-05-16 11:49 | Progress Note ---
DATE: SUBJECTIVE: The patient is still complaining of headache and some cough. There is no chest congestion. PHYSICAL EXAMINATION: VITAL SIGNS: The blood pressure is 123/64 and saturation is 98%. The pulse is 58. HEENT: Shows no facial swelling or erythema. LYMPHATIC: Shows no submandibular, cervical, or supraclavicular adenopathy. CARDIAC: Reveals regular rate and rhythm with normal S1 and S2. LUNGS: Auscultation of lungs reveals rhonchorous breath sounds bilaterally. There is no wheezing. ABDOMEN: Soft and nontender. There is no rebound or guarding. EXTREMITIES: Show no leg edema or calf tenderness. LABORATORY DATA: White blood cell count is 9.39, hemoglobin is 12.0, and the platelet count is 264. IMPRESSION: 1. Viral pneumonia and COVID-19. 2. Hypertension. 3. Abnormal liver enzymes. 4. Myalgias. PLAN: 1. Continue symptomatic treatment. 2. Possible discharge home. MD MOSHE Nance/HEMAL /[id number]
[2020-05-16 15:17] VITALS: BP 135/74
--- NOTE | 2020-05-16 16:03 | Diagnostic Imaging Report ---
EXAM: CT Abdomen and Pelvis WITH intravenous contrast INDICATION: Abdominal pain COMPARISON: CT abdomen and pelvis of 01/09/2014 TECHNIQUE: Abdomen and pelvis were scanned utilizing a multidetector helical scanner from the lung base to the pubic symphysis after administration of IV contrast. Coronal and sagittal reformations were obtained. Routine protocol was performed. Scan was performed during portal venous phase. IV CONTRAST: 100mL of Isovue 370 ORAL CONTRAST: Water RADIATION DOSE: Total DLP: 726 mGy*cm Dose modulation, iterative reconstruction, and/or weight based adjustment of the mA/kV was utilized to reduce the radiation dose to as low as reasonably achievable. FINDINGS: LOWER THORAX: Normal. HEPATOBILIARY: Severe diffuse hepatic steatosis. No focal liver lesion. No biliary ductal dilation. Status post cholecystectomy. SPLEEN: No splenomegaly. PANCREAS: No focal masses or ductal dilatation. ADRENALS: No adrenal nodules. KIDNEYS/URETERS: Horseshoe kidney. No hydronephrosis or renal calculi. No solid renal mass lesions. 1.2 cm left renal cyst. PELVIC ORGANS/BLADDER: Unremarkable. PERITONEUM / RETROPERITONEUM: No free air or fluid. LYMPH NODES: No lymphadenopathy. VESSELS: Unremarkable. GI TRACT: No distention or wall thickening. Normal appendix. BONES AND SOFT TISSUES: Unremarkable. IMPRESSION: Severe diffuse hepatic steatosis. Horseshoe kidney. Signed by: Alejandra Garcia MD on 05/16/2020 4:00 PM
[2020-05-16] MEDS: ENOXAPARIN SOD INJ 40 MG/0.4 ML SYR SC SCH (17:59)
--- NOTE | 2020-05-16 20:52 | NUR ---
PT RESTING COMFORTABLY IN BED NO SIGNS OF DISTRESS NO COMPLAINTS AT THIS TIME
[2020-05-16 20:54] VITALS: BP 131/73
[2020-05-16 20:56] VITALS: BP 131/73
--- NOTE | 2020-05-16 21:27 | Progress Note ---
DATE: 05/16/2020 CONSULTANTS: 1. Dr. Loza, ID. 2. Dr. Alvarado, Pulmonary. SUBJECTIVE: The patient reports still with headache, and right upper quadrant abdominal pain. She reports nausea has improved some, but all other symptoms have not resolved. OBJECTIVE: VITAL SIGNS: Temperature 97.7, pulse is 60, respirations 17, blood pressure 135/74, pulse ox is 100% on room air. GENERAL: No acute distress. HEENT: Normocephalic and atraumatic. NECK: Supple. LUNGS: Clear to auscultation. CARDIOVASCULAR: Regular rate and rhythm. GI: Soft, right upper quadrant mild tenderness. NEUROLOGIC: Alert, awake, and oriented x3. MUSCULOSKELETAL: Moves all extremities. SKIN: Dry. PSYCH: Calm. LABORATORY DATA: Ferritin , AST 27, ALT 61. CRP is pending. Troponin negative. ASSESSMENT: 1. Post coronavirus disease 2019 syndrome. Continue with supportive therapy, ID and Pulmonology on the case. Chest x-ray unremarkable. 2. Hypertension. Continue on nifedipine and lisinopril. 3. Hypokalemia, replaced. 4. Elevated LFTs. Trending down. CT abdomen and pelvis ordered. 5. Questionable viral enteritis. Continue supportive care. 6. Deep venous thrombosis prophylaxis. Lovenox subcu. PLAN: CT abdomen and pelvis has been ordered, continue supportive care, discharge home if CT abdomen is negative with prednisone x2 weeks . Dictated by PRICILLA Cole Tushar Garza MD MY/MODL /[id number]
[2020-05-16 23:20] VITALS: BP 113/67
--- NOTE | 2020-05-16 23:21 | NUR ---
pt resting in bed comfortably no signs of distress no complaints at this time
[2020-05-17 04:21] VITALS: BP 121/68
[2020-05-17] MEDS: SODIUM CHLORIDE 0.9% 1000ML 1,000 ML IV SCH (05:32)
--- NOTE | 2020-05-17 05:33 | NUR ---
pt resting in bed comfortably no signs of distress no complaints at this time
[2020-05-17 05:57] LABS: ALBUMIN 3.5 g/dL (3.5-5.0); BILIRUBIN,DIRECT 0.1 mg/dL (0.0-0.5)
[2020-05-17 08:00] VITALS: BP 114/62
[2020-05-17] MEDS: LISINOPRIL 10 MG TAB PO SCH (08:39)
[2020-05-17] MEDS: ESCITALOPRAM OXALATE 10 MG TAB PO SCH (08:39)
[2020-05-17] MEDS: ASPIRIN 81 MG ENTERIC COATED PO SCH (08:39)
[2020-05-17] MEDS: PANTOPRAZOLE 40 MG 10ML VIAL IV SCH (08:39)
[2020-05-17] MEDS: NIFEDIPINE CR 30 MG TAB PO SCH (08:40)
[2020-05-17 09:26] VITALS: BP 114/62
--- NOTE | 2020-05-17 09:43 | Progress Note ---
DATE: Pulmonary Critical Care Progress Note SUBJECTIVE: The patient is feeling much better. She has no fever. She is not complaining of cough. She denies dyspnea. She still has occasional myalgias. PHYSICAL EXAMINATION: VITAL SIGNS: Blood pressure 114/62, saturation is 99% and the pulse is 55. HEENT: Shows no facial swelling or erythema. LYMPHATIC: Shows no submandibular, cervical, supraclavicular adenopathy. CARDIAC: Reveals regular rate and rhythm. Normal S1, S2. LUNGS: Auscultation of lungs reveals rhonchorous breath sounds bilaterally. There is no wheezing. ABDOMEN: Soft, nontender. There is no rebound or guarding. EXTREMITIES: Shows no leg edema or calf tenderness. IMPRESSION: 1. Viral pneumonia and COVID-19 infection. 2. Hypertension. 3. Myalgias. 4. Abnormal liver enzymes. PLAN: 1. Plan for discharge home today. 2. Low-dose prednisone at home. 3. Treatment for myalgias. Bienvenido Morales MD [facility]/MODL /[id number]
--- NOTE | 2020-05-17 12:17 | NUR ---
INFECTIOUS DISEASE PROGRESS NOTE DR. ERICKSON ANGELES REASON FOR CONSULTATION: COVID-19. HISTORY OF PRESENT ILLNESS: This patient is a 49-year-old female. She was diagnosed with COVID-19 back in March 15. The patient was doing well, few weeks later started to have some shortness of breath. She called her PCP, who gave her steroid and antibiotic azithromycin. She got better, but then she is just having fever, bad headache, so she came here. PAST MEDICAL HISTORY: History of hypertension, hypercholesteremia. ALLERGIES: NKA. PHYSICAL EXAMINATION: GENERAL: She is currently alert, oriented. VITAL SIGNS: Stable, currently afebrile. HEENT: She is not icteric. NECK: Supple. CHEST: Clear bilateral. HEART: S1, S2. ABDOMEN: Soft. Bowel sounds present. EXTREMITIES: No edema. LABORATORY DATA: Reviewed. per chart RADIOLOGY: reviewed IMPRESSION: Fever and headache, probably due to viral. Covid on mar 24, no longer infectious muscle aches HTN Abdominal pain PLAN: IMPRESSION: Severe diffuse hepatic steatosis. Horseshoe kidney. pt can discharge with prednisone 5mg a day come see me in 2 weeks in clinic needs to follow up with a liver specialist outpatient Trixie Flores MSN, WELDING MACHINE OPERATOR FRICTION, AGACNP-BC
[2020-05-17] MEDS ORDERED: PREDNISONE5 MG PO (13:51)
--- NOTE | 2020-05-17 14:40 | NUR ---
Patient discharged to home and transported via private auto. Discharge instructions and paperwork explained and patient verbalized and understanding. RX given to patient and all paperwork and signed and given to patient appropriately. All belongings including cell phone and cyber systems engineer with patient. Patient verbalized an understanding of all teaching.
--- NOTE | 2020-05-17 19:53 | Discharge Summary ---
PRIMARY CARE PHYSICIAN: Dr. Esau Carrillo at [facility]. FINAL DISCHARGE DIAGNOSES: 1. Post coronavirus disease 2019 syndrome. 2. Hypertension. 3. Hypokalemia. 4. Elevated LFTs. 5. Myalgia. CONSULTANTS: 1. Dr. Morales, Pulmonology. 2. Dr. Loza, Infectious Disease. PROCEDURES: CT abdomen and pelvis done which showed severe diffuse hepatic steatosis, horseshoe kidney. CT brain negative. Chest x-ray, negative for acute process. HISTORY: Per HPI. HOSPITAL COURSE: This is a 49-year-old female, who presented to the ER with complaints of severe headache, elevated blood pressure, myalgia, and chest tightness. In the ER, CT brain and chest x-ray were unremarkable. She was positive for COVID PCR. However, she has had COVID in March and was treated effectively and had similar symptoms, but that was not as severe as this episode on April 23 and was treated with steroids for post COVID syndrome. She is afebrile, no shortness of breath. Supportive treatment was given via IV fluids, blood pressure control, antiemetics as needed. She remained stable, CT abdomen was done, which showed severe diffuse steatosis. LFTs have trended down, but is advised to follow up with GI/optical goods drill operator for further evaluation. Today, she is feeling much better, and we will discharge home to follow up on low dose prednisone per ID with Dr. Loza and PCP in 1 to 2 weeks. PHYSICAL EXAMINATION: VITAL SIGNS: Temperature 98.2, pulse is 55, respirations 20, blood pressure 114/62, pulse ox is 98% on room air. GENERAL: No acute distress. HEENT: Normocephalic and atraumatic. NECK: Supple. LUNGS: Clear to auscultation. CARDIOVASCULAR: Regular rate and rhythm. GI: Soft, nontender, mild tenderness in the right upper quadrant. NEUROLOGIC: Alert, awake, and oriented x3. MUSCULOSKELETAL: Moves all extremities. SKIN: Dry. PSYCH: Calm. CONDITION AT DISCHARGE: Improved and stable. DISCHARGE MEDICATIONS: Please see medication reconciliation list. FOLLOWUP: Follow up with PCP and Dr. Loza in 1 to 2 weeks. TIME SPENT: Total discharge time is 32 minutes. Dictated by PRICILLA Cole Yiching MD JACQUELINE Cartagena/HEMAL /[id number]
--- OUTSIDE RECORDS SUMMARY | 2020-05-19 18:20 | XMS REPORT | Continuity of Care Document ---
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 Role Phone [employer] Unavailable Un available Problems Problem Status Onset Date Classification Date Reported Comments Source Intramural leiomyoma of uterus 02/11/2018 08/19/2018 [facility] UNK Active 0 01/09/2018 [facility] Occipital neuralgia 11/12/2017 11/22/2017 [facility] STROKE SYMPTOMS Active 11/11/2017 [facility] R31.0 - GROSS HEMATURIA Active 05/08/2016 [facility] Z12.31 - ENCNTR SCREEN MAMMOGRAM FOR MA Active 05/08/2016 OPIZaira [facility] SCREENING Active 04/17/2016 [facility] 753.15 - RENAL DYSPLASIA Active 11/24/2013 TIMBOD [facility] Essential (primary) hypertension 08/19/2018 [facility] Subserosal leiomyoma of uterus 08/19/2018 [facility] Other noninflammatory disorders of ovary , fallopian tube and broad ligament 08/19/2018 [facility] Excessive and frequent menstruation with regular cycle 08/19/2018 [facility] Unspecified dyspareunia 08/19/2018 [facility] Pelvic and perineal pain 08/19/2018 [facility] Major depressive disorder, single episode, unspecified 08/19/2018 [facility] Obesity, unspecified 08/19/2018 [facility] Body mass index (BMI) 33.0-33.9, adult 08/19/2018 [facility] Tubal ligation status 08/19/2018 [facility] Constipation, unspecified 08/19/2018 [facility] Hypertensive disorder, systemic arterial (disorder) Active Problem 02/04/2020 [facility] Mixed anxiety and depressive disorder (disorder) Active Problem 02/04/2020 [facility] Uterine leiomyoma (disorder) A ctive Problem [facility] Encounter for screening mammogram for ma lignant neoplasm of breast 01/20/2020 [facility]valos Medications Medication Details Route Status Patient Instructions Ordering Provider Order Date Source ibuprofen 600 mg oral tablet 6 00 mg, PO, Q6H, PRN Pain Score 1-3, # 30 tab, 0 Refill(s) No Longer Active 01/30/2018 [facility] tramadol hydrochloride 50 MG Oral Tablet 50 mg, PO, Q6H, PRN Pain Score 1-3, 0 Refill(s) Active 01/30/2018 [facility] Docusate Sodium 100 MG Oral Tablet [DOK] 100 mg = 1 tab, PO, BID, # 60 tab, 0 Refill(s) Active 01/30/2018 [facility] tramadol hydrochloride 50 MG Oral Tablet Notes: Not to exceed 400mg/day. (Same As: Ultram) Inactive 01/30/2018 [facility] Ibuprofen Notes: (Same as: Adv il) Give with food. Inactive 01/30/2018 [facility] ketOROLAC 30 mg/mL injectable solution 4 days MEDICATION WASTE Product Size: 30 mg Product Wasted: ___ mg No Longer Active 01/29/2018 [facility] Zofran Notes: (Same as: Zofran ) PROTECT FROM LIGHT No Longer Active 01/29/2018 [facility] Acetaminophen 325 MG / Hydrocodone Sushila trate 5 MG Oral Tablet [[place] 5/325] Notes: (Same as: [place] 325/5) Do not ex ceed 4gm/day of acetaminophen. No Longer Activ e 01/29/2018 [facility] Zofran Notes: (Same as: Zofran) No Longer Active 01/29/2018 [facility] Morphine Notes: (Same as:MORPh ine Sulfate) No Longer Active 01/29/2018 [facility] 72 HR Scopolamine 0.0139 MG/HR Transdermal Patch 1 patch, Route: TOP, Drug Form: ERFILM, Dosing Weight 65, kg, ONCE, Apply behind ear. Avoid use in elderly., Start date: 01/29/18 10:11:00 CDT, Stop date: 01/29/18 10:11:00 CDT Inactive 01/29/2018 [facility] Meperidine 12.5 mg, Route: IVP , Q30Min, Dosing Weight 65, kg, PRN Other -See Comment, For shivering, Start date: 01/29/18 10:11:00 CDT, Duration: 2 doses or times, Stop date: Limited # of times Inactive 01/29/2018 [facility] Diphenhydramine 12.5 mg, Route : IVP, Drug form: INJ, Q6H, Dosing Weight 65, kg, PRN Itching, Start date: 01/29/18 10:11:00 CDT, Duration: 30 day, Stop date: 02/28/18 10:10:00 CDT Inactive 01/29/2018 [facility] Promethazine 6.25 mg, Route: I VPB, ONCE, Dosing Weight 65, kg, PRN Nausea & Vomiting, Start date: 01/29/18 10:11:00 CDT Inactive 01/29/2018 [facility] Ondansetron 4 mg, Route: IVP, ONCE, Dosing Weight 65, kg, PRN Nausea & Vomiting, Start date: 01/29/18 10:11:00 CDT Inactive 01/29/2018 [facility] Naloxone 0.4 mg, Route: IVP, Q 2MIN, Dosing Weight 65, kg, PRN Narcotic Reversal, Start date: 01/29/18 10:11:00 CDT, Duration: 8 doses or times, Stop date: Limited # of times Inactive 01/29/2018 [facility] Flumazenil 0.2 mg, Route: IVP, PRN, Dosing Weight 65, kg, PRN Benzodiazepine Reversal, Initial dose, Start date: 01/29/18 10:11:00 CDT, Duration: 30 day, Stop date: 02/28/18 10:10:00 CDT Inactive 01/29/2018 [facility] Fentanyl 50 microgram, Route: IVP, Q5Min, Dosing Weight 65, kg, PRN Pain Score 7-10, Priority: Routine, Start date: 01/29/18 10:11:00 CDT, Duration: 2 doses or times, Stop date: Limited # of times Inactive 01/29/2018 [facility] Hydromorphone 0.5 mg, Route: I [employer], Q5Min, Dosing Weight 65, kg, PRN Pain Score 7-10, Start date: 01/29/18 10:11:00 CDT, Duration: 4 doses or times, Stop date: Limited # of times Inactive 01/29/2018 [facility] Oxycodone 10 mg, Route: PO, Dr mai form: TAB, Q4H, Dosing Weight 65, kg, PRN Pain Score 7-10, Start date: 01/29/18 10:11:00 CDT, Duration: 30 day, Stop date: 02/28/18 10:10:00 CDT Inactive 01/29/2018 [facility] Morphine 2 mg, Route: IVP, Q5M in, Dosing Weight 65, kg, PRN Pain Score 4-6, Start date: 01/29/18 10:11:00 CDT, Duration: 5 doses or times, Stop date: Limited # of times Inactive 01/29/2018 [facility] Calcium Chloride 0.0014 MEQ/ML / Potassi um Chloride 0.004 MEQ/ML / Sodium Chloride 0.103 MEQ/ML / Sodium Lactate 0.028 MEQ/ML Injectable Solution 1,000 mL, Rate: 125 ml/hr, Infuse over: 8 hr, Route: IV, Dosing Weight 65 kg, Total Volume: 1,000, Start date: 01/29/18 10:11:00 CDT, Duration: 30 day, Stop date: 02/28/18 10:10:00 CDT, 1.62, m2 Inactive 01/29/2018 [facility] Acetaminophen 1,000 mg, Route: IVPB, Drug form: INJ, ONCE, Dosing Weight 65, kg, PRN Pain Score 1-3, Start date: 01/29/18 10:11:00 CDT Inactive 01/29/2018 [facility] Ketorolac 30 mg, Route: IVP, O NCE, Dosing Weight 65, kg, Start date: 01/29/18 10:11:00 CDT, Stop date: 01/29/18 10:11:00 CDT Inactive 01/29/2018 [facility] glycopyrrolate (ANES) Route: I V, Drug form: INJ, ONCE, Stop date: 01/29/18 9:59:00 CDT Inactive 01/29/2018 [facility] neostigmine (ANES) Route: IV, Drug form: INJ, ONCE, Stop date: 01/29/18 9:59:00 CDT Inactive 01/29/2018 [facility] Naloxone Notes: Same as Narcan Inactive 01/29/2018 [facility] Morphine Notes: Dose: Delay: Basal rate: 4hr limit: (Same as:Bita-Jeannette) Inactive 01/29/2018 [facility] Calcium Chloride 0.0014 MEQ/ML / Potassi um Chloride 0.004 MEQ/ML / Sodium Chloride 0.103 MEQ/ML / Sodium Lactate 0.028 MEQ/ML Injectable Solution 1,000 mL, Rate: 125 ml/hr, Infuse over: 8 hr, Route: IV, Dosing Weight 65 kg, Total Volume: 1,000, Start date: 01/29/18 9:50:00 CDT, Duration: 30 day, Stop date: 02/28/18 9:49:00 CDT, 1.62, m2 No Longer Active 01/29/2018 [facility] albuterol (ANES) Route: ENDOTR ACHEAL, Drug form: AERO/A, ONCE, Stop date: 01/29/18 9:40:00 CDT Inactive 01/29/2018 [facility] ePHEDrine (ANES) Route: IV, Dr ug form: INJ, ONCE, Stop date: 01/29/18 9:30:00 CDT Inactive 01/29/2018 [facility] lidocaine (ANES) Route: IV, Dr ug form: INJ, ONCE, Stop date: 01/29/18 8:40:00 CDT Inactive 01/29/2018 [facility] propofol (ANES) Route: IV, Dieter g form: INJ, ONCE, Stop date: 01/29/18 8:40:00 CDT Inactive 01/29/2018 [facility] fentaNYL (ANES) Route: IV, Dieter g form: INJ, ONCE, Stop date: 01/29/18 8:40:00 CDT Inactive 01/29/2018 [facility] rocuronium (ANES) Route: IV, D rug form: INJ, ONCE, Stop date: 01/29/18 8:40:00 CDT Inactive 01/29/2018 [facility] metoclopramide (ANES) Route: I V, Drug form: INJ, ONCE, Stop date: 01/29/18 8:40:00 CDT Inactive 01/29/2018 [facility] dexamethasone (ANES) Route: IV , Drug form: INJ, ONCE, Stop date: 01/29/18 8:35:00 CDT Inactive 01/29/2018 [facility] midazolam (ANES) Route: IV, Dr ug form: SOLN, ONCE, Stop date: 01/29/18 8:35:00 CDT Inactive 01/29/2018 [facility] famotidine (ANES) Route: IV, D rug form: INJ, ONCE, Stop date: 01/29/18 8:35:00 CDT Inactive 01/29/2018 [facility] acetaminophen (ANES) 10 mg Rou te: IV, Drug form: INJ, Start date: 01/29/18 8:25:00 CDT, Stop date: 01/29/18 9:25:00 CDT Inactive 01/29/2018 [facility] gentamicin (ANES) 40 mg Route: IV, Drug form: INJ, Start date: 01/29/18 7:51:00 CDT, Stop date: 01/29/18 8:51:00 CDT Inactive 01/29/2018 [facility] Cleocin Phosphate (ANES) 900 mg Route: IV, Drug form: INJ, Start date: 01/29/18 7:51:00 CDT, Stop date: 01/29/18 8:51:00 CDT Inactive 01/29/2018 [facility] Lactated Ringers Injection IV (ANES) 1000 mL Route: IV, Total Volume: 1,000, Start date: 01/29/18 7:20:00 CDT, Stop date: 01/29/18 8:20:00 CDT Inactive 01/29/2018 [facility] Pyridium 200 mg, Route: PO, ON CE, Dosing Weight 65, kg, Start date: 01/29/18 6:12:00 CDT, Stop date: 01/29/18 6:12:00 CDT Inactive 01/29/2018 [facility] Calcium Chloride 0.0014 MEQ/ML / Potassi um Chloride 0.004 MEQ/ML / Sodium Chloride 0.103 MEQ/ML / Sodium Lactate 0.028 MEQ/ML Injectable Solution 1,000 mL, Rate: 25 ml/hr, Infuse over: 4 0 hr, Route: IV, Dosing Weight 65 kg, Total Volume: 1,000, Start date: 01/29/18 5:57:00 CDT, Duration: 30 day, Stop date: 02/28/18 5:56:00 CDT, 1.62, m2 Inactive 01/29/2018 [facility] Valsartan-HCTZ Valsartan-HCTZ, Refill(s) 0 Active 01/27/2018 [facility] Celexa PO, Daily, 0 Refill(s) Active 01/27/2018 [facility] Hydrochlorothiazide 25 MG / valsartan 16 0 MG Oral Tablet 1 tab, PO, Daily, 0 Refill(s) Inactive 01/27/2018 [facility] ketOROLAC 30 mg/mL injectable solution 30 mg, Route: IM, Drug form: INJ, ONCE, Dosing Weight 67.727, kg, Priority: STAT, Start date: 11/12/17 0:14:00 CDT, Stop date: 11/12/17 0:14:00 CDT Inactive 11/12/2017 [facility] ketOROLAC 30 mg/mL injectable solution 4 days MEDICATION WASTE Product Size: 30 mg Product Wasted: ___ mg Inactive 11/12/2017 [facility] Allergies, Adverse Reactions, Alerts Substance Category Reaction Severity Reaction type Status Date Reported Comments Source codeine Assertion Drug allergy Active [facility] [place] Assertion Drug allergy Active [facility] Floxin Assertion Drug allergy Active [facility] Immunizations No Data Provided for This Section Results Order Name Results Value Reference Range Date Interpretation Comments Source CHEM PANEL eGFR 98 01/30/2018 Result Comment: The eGFR is calculated using the CKD-EPI formula. In most young, healthy individuals the eGFR will be >90 mL/min/1.73m2. The eGFR declines with age. An eGFR of 60-89 may be normal in some populations, particularly the elderly, for whom the CKD-EPI formula has not been extensively validated. Use of the eGFR is not recommended in the following populations:

Individuals with unstable creatinine concentrations, including patients and those with serious co-morbid conditions.

Patients with extremes in muscle mass or diet.

The data above are obtained from the National Kidney Disease Education Program (NKDEP) which additionally recommends that when the eGFR is used in patients with extremes of body mass index for purposes of drug dosing, the eGFR should be multiplied by the estimated BMI. [facility] CHEM PANEL Calcium Lvl 8.5 8.5 - 10.5 01/30/2018 [facility] CHEM PANEL Sodium Lvl 145 135 - 145 01/30/2018 [facility] CHEM PANEL CO2 28 24 - 32 01/30/2018 [facility] CHEM PANEL Creatinine Lvl 0.73 0.50 - 1.40 01/30/2018 [facility] CHEM PANEL BUN 11 7 - 22 01/30/2018 [facility] CHEM PANEL Glucose Lvl 96 70 - 99 01/30/2018 [facility] CHEM PANEL Chloride Lvl 106 95 - 109 01/30/2018 [facility] CHEM PANEL Potassium Lvl 3.9 3.5 - 5.1 01/30/2018 [facility] CHEM PANEL AGAP 14.9 10.0 - 20.0 01/30/2018 [facility] HEMATOLOGY MPV 10.0 7.4 - 10.4 01/30/2018 [facility] HEMATOLOGY Platelet 233 133 - 450 01/30/2018 [facility] HEMATOLOGY RDW 13.8 11.5 - 14.5 01/30/2018 [facility] HEMATOLOGY Hgb 12.1 12.0 - 16.0 01/30/2018 [facility] HEMATOLOGY RBC 4.18 4.20 - 5.40 01/30/2018 [facility] HEMATOLOGY WBC 13.1 3.7 - 10.4 01/30/2018 [facility] MCHC 33.5 32.0 - 36.0 01/30/2018 [facility] MCH 29.0 27.0 - 31.0 01/30/2018 [facility] HEMATOLOGY MCV 86.7 80.0 - 98.0 01/30/2018 [facility] HEMATOLOGY Hct 36.2 36.0 - 48.0 01/30/2018 [facility] HEMATOLOGY Monocytes # 0.7 0.0 - 0.8 01/30/2018 [facility] HEMATOLOGY Basophils 0.2 0.0 - 1.0 01/30/2018 [facility] HEMATOLOGY Eosinophils 0.2 0.0 - 4.0 01/30/2018 [facility] HEMATOLOGY Lymphocytes # 2.1 1.0 - 5.5 01/30/2018 [facility] HEMATOLOGY Neutrophils # 10.2 1.5 - 8.1 01/30/2018 [facility] HEMATOLOGY Segs 77.7 45.0 - 75.0 01/30/2018 [facility] HEMATOLOGY Monocytes 5.6 2.0 - 12.0 01/30/2018 [facility] HEMATOLOGY Lymphocytes 16.3 20.0 - 40.0 01/30/2018 [facility] ELECTROLYTES AGAP 12.7 10.0 - 20.0 01/27/2018 [facility] ELECTROLYTES A/G Ratio 1.1 0.7 - 1.6 01/27/2018 [facility] ELECTROLYTES Globulin 3.1 2.7 - 4.2 01/27/2018 [facility] ELECTROLYTES B/C Ratio 14 6 - 25 01/27/2018 [facility] ELECTROLYTES eGFR 104 01/27/2018 Result Comment: The eGFR is calculated using the CKD-EPI formula. In most young, healthy individuals the eGFR will be >90 mL/min/1.73m2. The eGFR declines with age. An eGFR of 60-89 may be normal in some populations, particularly the elderly, for whom the CKD-EPI formula has not been extensively validated. Use of the eGFR is not recommended in the following populations:

Individuals with unstable creatinine concentrations, including patients and those with serious co-morbid conditions.

Patients with extremes in muscle mass or diet.

The data above are obtained from the National Kidney Disease Education Program (NKDEP) which additionally recommends that when the eGFR is used in patients with extremes of body mass index for purposes of drug dosing, the eGFR should be multiplied by the estimated BMI. [facility] ELECTROLYTES BUN 10 7 - 22 01/27/2018 [facility] ELECTROLYTES Potassium Lvl 3.7 3.5 - 5.1 01/27/2018 [facility] ELECTROLYTES Sodium Lvl 146 135 - 145 01/27/2018 [facility] ELECTROLYTES Calcium Lvl 8.8 8.5 - 10.5 01/27/2018 [facility] ELECTROLYTES CO2 27 24 - 32 01/27/2018 [facility] ELECTROLYTES Glucose Lvl 123 70 - 99 01/27/2018 [facility] ELECTROLYTES Creatinine Lvl 0.6 9 0.50 - 1.40 01/27/2018 [facility] ELECTROLYTES Bili Total 0.7 0.2 - 1.3 01/27/2018 [facility] ELECTROLYTES Alk Phos 88 39 - 136 01/27/2018 [facility] ELECTROLYTES AST 27 0 - 37 01/27/2018 [facility] ELECTROLYTES ALT 52 0 - 65 01/27/2018 [facility] ELECTROLYTES Chloride Lvl 110 95 - 109 01/27/2018 [facility] ELECTROLYTES Total Protein 6.6 6.4 - 8.4 01/27/2018 [facility] ELECTROLYTES Albumin Lvl 3.5 3.5 - 5.0 01/27/2018 [facility] ENDOCRINOLOGY S Preg Ne gative *NA* (01/27/18 10:55 AM) Negative 01/27/2018 [facility] HEMATOLOGY Hgb 12.8 12.0 - 16.0 01/27/2018 [facility] HEMATOLOGY RDW 14.1 11.5 - 14.5 01/27/2018 [facility] HEMATOLOGY WBC 7.5 3.7 - 10.4 01/27/2018 [facility] HEMATOLOGY Hct 38.2 36.0 - 48.0 01/27/2018 [facility] HEMATOLOGY MCV 86.0 80.0 - 98.0 01/27/2018 [facility] HEMATOLOGY Platelet 228 133 - 450 01/27/2018 [facility] MPV 10.3 7.4 - 10.4 01/27/2018 [facility] MCHC 33.6 32.0 - 36.0 01/27/2018 [facility] MCH 28.9 27.0 - 31.0 01/27/2018 [facility] HEMATOLOGY RBC 4.44 4.20 - 5.40 01/27/2018 [facility] HEMATOLOGY Monocytes # 0.3 0.0 - 0.8 01/27/2018 [facility] HEMATOLOGY Basophils # 0.1 0.0 - 0.2 01/27/2018 [facility] HEMATOLOGY Lymphocytes # 2.2 1.0 - 5.5 01/27/2018 [facility] HEMATOLOGY Eosinophils # 0.5 0.0 - 0.5 01/27/2018 [facility] Lymphocytes 29.5 20.0 - 40.0 01/27/2018 [facility] Segs 59.2 45.0 - 75.0 01/27/2018 [facility] HEMATOLOGY Eosinophils 6.1 0.0 - 4.0 01/27/2018 [facility] Monocytes 4.5 2.0 - 12.0 01/27/2018 [facility] Neutrophils # 4.4 1.5 - 8.1 01/27/2018 [facility] HEMATOLOGY Basophils 0.7 0.0 - 1.0 01/27/2018 [facility] SPECIAL CHEMISTRY Hgb A1C 5.7 <=5.6 % 01/27/2018 [facility] CARDIAC ENZYMES CK MB Index <1.0 0.0 - 2.5 11/11/2017 [facility] CARDIAC ENZYMES Troponin-I <0.02 0.00 - 0.40 11/11/2017 [facility] CARDIAC ENZYMES CK MB <1.0 0.5 - 3.6 11/11/2017 [facility] CARDIAC ENZYMES Total CK 102 12 - 191 11/11/2017 [facility] CHEM PANEL eGFR 109 11/11/2017 Result Comment: The eGFR is calculated using the CKD-EPI formula. In most young, healthy individuals the eGFR will be >90 mL/min/1.73m2. The eGFR declines with age. An eGFR of 60-89 may be normal in some populations, particularly the elderly, for whom the CKD-EPI formula has not been extensively validated. Use of the eGFR is not recommended in the following populations:

Individuals with unstable creatinine concentrations, including patients and those with serious co-morbid conditions.

Patients with extremes in muscle mass or diet.

The data above are obtained from the National Kidney Disease Education Program (NKDEP) which additionally recommends that when the eGFR is used in patients with extremes of body mass index for purposes of drug dosing, the eGFR should be multiplied by the estimated BMI. [facility] CHEM PANEL Globulin 3.6 2.7 - 4.2 11/11/2017 [facility] CHEM PANEL A/G Ratio 1.1 0.7 - 1.6 11/11/2017 [facility] CHEM PANEL Chloride Lvl 105 95 - 109 11/11/2017 [facility] CHEM PANEL Sodium Lvl 139 135 - 145 11/11/2017 [facility] CHEM PANEL Potassium Lvl 3.7 3.5 - 5.1 11/11/2017 [facility] CHEM PANEL Creatinine Lvl 0.60 0.50 - 1.40 11/11/2017 [facility] CHEM PANEL BUN 15 7 - 22 11/11/2017 [facility] CHEM PANEL Glucose Lvl 90 70 - 99 11/11/2017 [facility] CHEM PANEL Albumin Lvl 3.9 3.5 - 5.0 11/11/2017 [facility] CHEM PANEL CO2 29 24 - 32 11/11/2017 [facility] CHEM PANEL Calcium Lvl 9.6 8.5 - 10.5 11/11/2017 [facility] CHEM PANEL ALT 85 0 - 65 11/11/2017 [facility] CHEM PANEL Bili Total 0.5 0.2 - 1.3 11/11/2017 [facility] CHEM PANEL AGAP 8.7 10.0 - 20.0 11/11/2017 [facility] CHEM PANEL Total Protein 7.5 6.4 - 8.4 11/11/2017 [facility] CHEM PANEL AST 33 0 - 37 11/11/2017 [facility] CHEM PANEL Alk Phos 129 39 - 136 11/11/2017 [facility] CHEM PANEL B/C Ratio 25 6 - 25 11/11/2017 [facility] ENDOCRINOLOGY S Preg Ne gative *NA* (11/11/17 6:07 PM) Negative 11/11/2017 [facility] HEMATOLOGY Lymphocytes # 2.8 1.0 - 5.5 11/11/2017 [facility] Segs-Bands # 5.9 1.5 - 8.1 11/11/2017 [facility] HEMATOLOGY Basophils 0.6 0.0 - 1.0 11/11/2017 [facility] HEMATOLOGY Eosinophils 9.2 0.0 - 4.0 11/11/2017 [facility] Basophils # 0.1 0.0 - 0.2 11/11/2017 [facility] Eosinophils # 1.0 0.0 - 0.5 11/11/2017 [facility] Monocytes # 0.6 0.0 - 0.8 11/11/2017 [facility] Monocytes 5.8 2.0 - 12.0 11/11/2017 [facility] Lymphocytes 27.2 20.0 - 40.0 11/11/2017 [facility] Segs 57.2 45.0 - 75.0 11/11/2017 [facility] MPV 9.2 7.4 - 10.4 11/11/2017 [facility] Platelet 264 133 - 450 11/11/2017 [facility] RDW 14.0 11.5 - 14.5 11/11/2017 [facility] MCHC 33.7 32.0 - 36.0 11/11/2017 [facility] MCH 28.9 27.0 - 31.0 11/11/2017 [facility] MCV 85.9 80.0 - 98.0 11/11/2017 [facility] Hct 40.3 36.0 - 48.0 11/11/2017 [facility] Hgb 13.6 12.0 - 16.0 11/11/2017 [facility] RBC 4.69 4.20 - 5.40 11/11/2017 [facility] WBC 10.4 3.7 - 10.4 11/11/2017 [facility] Pathology Reports No Data Provided for This Section Diagnostic Reports Report Value Date Source Breast Complete Ronald US COMPLETE ULTRASOUND OF BOTH BREASTS AND AXILLA: 02/02/2020 CLINICAL: R92.8 Other Abnormal And Inconclusive Findings On Diagnostic Imaging Of Breast/R92.8 Other Abnormal And Inconclusive Findings On Diagnostic Imaging Of Breast. COMPARISON:Comparison is made to exams dated: 02/02/2020 mammogram - [facility], 01/18/2020 mammogram, and 06/04/2016 mammogram - [facility]. TECHNIQUE: Color flow and real-time ultrasound of both breasts four quadrants, retroareolar, and axilla regions were performed. Way scale images of the real- time examination were reviewed. FINDINGS: There are small benign cysts left breast at 2 o'clock and in the sub-areolar depth. There also is a 8 mm benign cyst left breast at 8 o'clock that correlates with the mammographic finding. No suspicious findings were seen sonographically in either breast or either axilla. IMPRESSION: BENIGN RECOMMENDATION:There is no sonographic evidence of malignancy. A 1 year screening mammogram is recommended.(02/02/2021) This exam was interpreted at [id number] for [facility]. Bentley Howard M.D. ap/:02/02/2020 15:06:51 Bobbin Marker(s): Latricia Cao, [facility] letter sent: BI-RADS 1/2 Ultrasound BI-RADS: 2 Benign 02/02/2020 [facility] Breast Mammo Diag RONALD w za incl CAD MA BILATERAL DIGITAL DIAGNOSTIC MAMMOGRAM 3D/2D WITH CAD: 02/02/2020 CLINICAL: R92.8 Other Abnormal And Inconclusive Findings On Diagnostic Imaging Of Breast/R92.8 Other Abnormal And Inconclusive Findings On Diagnostic Imaging Of Breast. Current study was evaluated with a Computer Aided Detection (CAD) system. COMPARISON:Comparison is made to exams dated: 01/18/2020 mammogram and 06/04/2016 mammogram - [facility]. TECHNIQUE: Digital Breast Tomosynthesis was performed and utilized for Interpretation. Current study was also evaluated with a Computer Aided Detection (CAD) system. FINDINGS: The tissue of both breasts is extremely dense. This may lower the sensitivity of mammography. Previously noted asymmetries in the central right breast and right breast 11 o'clock completely efface with tomosynthesis spot compression views and are consistent with benign fibroglandular tissue. There is an oval mass in the left breast at 8 o'clock middle depth. This is seen in additional views. No other significant masses, calcifications, or other findings are seen in either breast. IMPRESSION: INCOMPLETE: NEEDS ADDITIONAL IMAGING EVALUATION RECOMMENDATION:The oval mass in the left breast is indeterminate. An ultrasound is recommended. This exam was interpreted at [id number] for [facility]. SUMMARY: Bilateral breast ultrasound will be performed at this time; please see separate report. Bentley Howard M.D. ap/penrad:02/02/2020 15:04:41 Bobbin Marker(s): RT Malini (R)(M), [facility] Mammogram BI-RADS: 0 Indeterminate 02/02/2020 [facility] Breast Mammo Scrn RONALD w az incl CAD MA BILATERAL DIGITAL SCREENING MAMMOGRAM 3D/2D WITH CAD: 01/18/2020 CLINICAL: /Screening. Current study was evaluated with a Computer Aided Detection (CAD) system. COMPARISON:Comparison is made to exam dated: 06/04/2016 mammogram - [facility]. TECHNIQUE: Digital Breast Tomosynthesis was performed and utilized for Interpretation. Current study was also evaluated with a Computer Aided Detection (CAD) system. FINDINGS: The tissue of both breasts is extremely dense. This may lower the sensitivity of mammography. There are benign appearing calcifications in both breasts. There is possible architectural distortion in the right breast at 11 o'clock middle depth 6 cm from the nipple. There also is 0.9 cm asymmetry in the right breast posterior depth central to the nipple seen on the craniocaudal view only 7 cm from the nipple. There is 0.9 cm oval mass with an obscured margin in the left breast at 8 o'clock middle depth 3.5 cm from the nipple. No other significant masses or calcifications are seen in either breast. IMPRESSION: INCOMPLETE: NEEDS ADDITIONAL IMAGING EVALUATION RECOMMENDATION:The possible architectural distortion in the right breast at 11 o'clock middle depth is indeterminate. Diagnostic mammography with possible ultrasound are recommended. A 3D diagnostic mammogram is requested. The 0.9 cm asymmetry in the right breast posterior depth central to the nipple seen on the craniocaudal view only is indeterminate. Diagnostic mammography with possible ultrasound are recommended. The 0.9 cm oval mass in the left breast at 8 o'clock middle depth is indeterminate. Diagnostic mammography views as well as an ultrasound are recommended. This exam was interpreted at [id number] for [facility], SL 15. SUMMARY: The staff from [facility] will contact the patient for these additional studies, and a supplementary report will be issued. Jaz Carrillo M.D., ms/lisandra:01/18/2020 09:12:22 Bobbin Marker(s): RT Davi(R)(M), [facility] letter sent: BI-RADS 0 Mammogram BI-RADS: 0 Indeterminate 01/18/2020 [facility] Pelvis w Pelvis Transvaginal US EXAM: US PELVIS TRANSABDOMINAL EXAM: US PELVIS TRANSVAGINAL DATE: 12/20/2017 2:51 PM CDT INDICATION: - D25.9 Leiomyoma of uterus, unspecified. Pelvic pressure with last menstrual cycle lasting longer and being heavier than normal. ADDITIONAL INFORMATION: LMP: 12/12/2017; COMPARISON: 08/02/2016. TECHNIQUE: Multiplanar grayscale and color Doppler ultrasound images of the pelvis were obtained transabdominally through a distended urinary bladder followed by transvaginal examination postvoid. FINDINGS: Uterus: Orientation: Anteverted Size: 7.9 x 4.5 x 5.0 cm Masses: Arising off of the left uterine body, there is a heterogeneous echogenicity 6.6 x 4.6 x 4.9 cm subserosal leiomyoma within the area of eccentric simple cystic component. Cervix: Small simple nabothian cysts. Endometrium: 6 mm. No focal abnormalities or abnormal endometrial vascularity are seen. The endometrium is partially obscured by the large leiomyoma described above. Right ovary: Size: 2.8 x 1.5 x 2.5 cm Cysts: A simple dominant 1.0 cm follicle is seen in the right ovary.. Masses: None. Vascularity: Normal. Left ovary: Size: 2.3 x 1.4 x 1.9 cm Cysts: None. Masses: None. Vascularity: Normal. Adnexa: No adnexal masses or fluid collections are seen. Free fluid: A small amount of simple free fluid is seen in the retrouterine cul-de-sac. Other findings: None. IMPRESSION: 1. Left uterine body subserosal leiomyom a with partial cystic degeneration and with increase in size from the prior exam. 2. No other uterine pathology is seen. 3. Simple nabothian cysts in the cervix. 4. No adnexal pathology is seen. 5. Small amount of simple free fluid in the retrouterine cul-de-sac. 12/20/2017 [facility] contrast CT EXAM: CT BRAIN WITHOUT CONTRAST DATE: 11/11/2017 5:23 PM CDT INDICATION: Weakness. Headache. COMPARISON: None. TECHNIQUE: CT images were obtained from the foramen magnum to the vertex without intravenous contrast on a multidetector CT. Coronal and sagittal reconstructions were also provided for review. CT radiation dose DLP: 859.11 mGy-cm FINDINGS: No acute intracranial hemorrhage, midline shift, or mass effect is identified. The way-white matter differentiation is preserved. The ventricles and sulci are within normal limits, without evidence for hydrocephalus. Mild mucosal thickening is noted within the paranasal sinuses. The orbits and mastoid air cells are unremarkable. The calvarium and skull base are intact. IMPRESSION: No acute intracranial abnormality. SL: [id number] 11/11/2017 [facility] Chest 1view DX Clinical Indica tion: Chest pain on the right Comparison: 06/04/2016 FINDINGS: The frontal chest radiograph shows normal lung volumes without interstitial or airspace opacities, pleural effusions or pneumothorax. The cardiomediastinal contours are normal. The trachea is midline. There are no clinically significant osseous abnormalities noted. IMPRESSION: No chest radiographic evidence of acute cardiopulmonary disease. SL: [id number] 11/11/2017 [facility] Pelvis Complete US EXAM: Pelvi s Complete US HISTORY: R31.9 Hematuria, unspecified,R10.9 Unspecified abdominal pain COMPARISON: None Technique: Transabdominal and Transvaginal Way scale and color doppler with limited spectral doppler imaging of the uterus and ovaries. Findings: The uterus measures 8.5 x 3.8 x 5.4 cm. The endometrial stripe measures 0.6 cm. Large left subserosal fibroid measures up to 5.7 cm. The right ovary measures 2.1 x 1.0 x 1.4 cm. The left ovary measures 2.4 x 1.4 x 2.4 cm. There is normal doppler flow. No large masses are seen in the bilateral adnexa. There is no free fluid. The bladder is distended and grossly unremarkable. IMPRESSION: Large subserosal left uterine fibroid. 08/02/2016 [facility] Abdomen complete US Exam: Abdo emile Ultrasound Reason for Exam: R10.9 Unspecified abdominal pain Comparison Exam: None Discussion: Multiple axial and sagittal images were obtained of the abdomen. The liver is unremarkable in size. It is of slightly increased echogenicity suggestive of mild diffuse fatty infiltration. No focal hepatic masses identified. No intrahepatic or extrahepatic biliary duct dilation, with the common bile duct measuring 0.6 cm. No gallstones or gallbladder sludge. No gallbladder wall thickening or pericholecystic fluid. Sonographic Avila's sign is negative. The visualized portions of the pancreatic head and proximal body are within normal limits. The spleen is of normal echogenicity measuring 8.1 cm in length. The visualized portions of the upper abdominal aorta and IVC are unremarkable. No evidence seen for ascites. The right and left kidneys measure 9.8 cm and 11.2 cm respectively. They are of normal echogenicity without hydronephrosis or shadowing renal calculi. A cyst is seen within the superior pole of left kidney measuring up to 1.4 cm. Impression: 1. Liver is of slightly increased echog enicity suggestive of mild diffuse fatty infiltration. Cyst seen within the superior pole of the left kidney measuring up to 1.4 cm. 08/02/2016 [facility] Digital Mammo Screening Ronald MA - DIGITAL MAMMO SCREENING RONALD MA BILATERAL DIGITAL SCREENING MAMMOGRAM WITH CAD: 06/04/2016 CLINICAL: Routine. Current study was evaluated with a Computer Aided Detection (CAD) system. No prior exams were available for comparison. The tissue of both breasts is extremely dense. This may lower the sensitivity of mammography. No significant masses, calcifications, or other findings are seen in either breast. IMPRESSION: NEGATIVE There is no mammographic evidence of malignancy. A 1 year screening mammogram is recommended. SUMMARY: If prior exam images are received, an addendum may be issued. Professional services are provided by the [facility]. Johnnie Alva M.D., cm/lisandra:06/19/2016 10:06:36 Bobbin Marker: Deya FUENTES(Stacy)(Eliseo), [facility] This exam was dictated and interpreted by [id number] for LEILANI Davalos. letter sent: Normal exam Mammogram BI-RADS: 1 Negative 06/04/2016 [facility] Retroperitoneal limited US EXA M: Renal ultrasound. Urinary bladder ultrasound. CLINICAL HX: N30.01 Acute cystitis with hematuria. Intermittent back pain for 2 months. . TECHNIQUE: Grayscale and Doppler sonogram of the kidneys. Grayscale and Doppler sonogram of the urinary bladder. COMPARISON: None. FINDINGS: Right kidney: Length: 10 cm. Cortical thickness: 1 cm. Hydronephrosis: Negative. Echogenicity: Within normal limits. Other: None. Left kidney: Length: 11.4 cm. Cortical thickness: 1.3 cm. Hydronephrosis: Negative. Echogenicity: Within normal limits. Other: 1.6 cm upper pole anechoic cyst. Urinary bladder: Lumen: Unremarkable. Ureteral jets: Visualized bilaterally. Volume: Prevoid 200 cc, postvoid 14 cc. Aorta: Visualized portions are unremarkable. Common iliac artery origins: Not well evaluated. IVC: Visualized portions are unremarkable. Other: None. IMPRESSION: Renal: 1. No hydronephrosis. 2. Small left renal cyst. Bladder: 1. Unremarkable urinary bladder. 06/04/2016 [facility] Bladder US EXAM: Renal ultrasound. Urinary bladder ultrasound. CLINICAL HX: N30.01 Acute cystitis with hematuria. Intermittent back pain for 2 months. . TECHNIQUE: Grayscale and Doppler sonogram of the kidneys. Grayscale and Doppler sonogram of the urinary bladder. COMPARISON: None. FINDINGS: Right kidney: Length: 10 cm. Cortical thickness: 1 cm. Hydronephrosis: Negative. Echogenicity: Within normal limits. Other: None. Left kidney: Length: 11.4 cm. Cortical thickness: 1.3 cm. Hydronephrosis: Negative. Echogenicity: Within normal limits. Other: 1.6 cm upper pole anechoic cyst. Urinary bladder: Lumen: Unremarkable. Ureteral jets: Visualized bilaterally. Volume: Prevoid 200 cc, postvoid 14 cc. Aorta: Visualized portions are unremarkable. Common iliac artery origins: Not well evaluated. IVC: Visualized portions are unremarkable. Other: None. IMPRESSION: Renal: 1. No hydronephrosis. 2. Small left renal cyst. Bladder: 1. Unremarkable urinary bladder. 06/04/2016 [facility] Chest 2 views DX EXAMINATION: Chest, 2 view, frontal and lateral HISTORY: annual exam; hypertension FINDINGS: Frontal and lateral views of the chest are submitted for interpretation without comparison. The cardiomediastinal silhouette is within normal limits. There are no pleural effusions or pneumothorax. The lungs are clear without focal pneumonic consolidation or pulmonary edema. IMPRESSION: 1. No radiographic evidence of acute car diopulmonary disease. 06/04/2016 [facility] Foot 3 views bilateral DX EXAM INATION: Bilateral feet 3 views each HISTORY: Bilateral foot pain; bilateral heel spurs FINDINGS: 3 view non-weightbearing examination of each foot is performed without comparison. There are no fractures or dislocations. There is a bipartite hallux tibial sesamoid on the left. The joint spaces are normal. There are no ankle effusions. There are bilateral plantar calcaneal spurs. There is heterotopic ossification at the Achilles insertion bilaterally. There are no radiopaque foreign bodies identified. IMPRESSION: 1. No acute fracture or dislocation of e ither foot. 2. Small bilateral plantar calcaneal spu rs. 06/04/2016 [facility] Consultation Notes No Data Provided for This Section Discharge Summaries No Data Provided for This Section History and Physicals No Data Provided for This Section Vital Signs Vital Sign Value Date Comments Source Respitory Rate 14 01/30/2018 [facility] Systolic (mm Hg) 134 01/30/2018 [facility] Diastolic (mm Hg) 79 01/30/2018 [facility] Respitory Rate 14 01/30/2018 [facility] Heart Rate 55 01/30/2018 [facility] Temperature Oral (F) 98.3 F 01/30/2018 [facility] Heart Rate 71 01/30/2018 [facility] Temperature Oral (F) 98.9 F 01/30/2018 [facility] Systolic (mm Hg) 116 01/30/2018 [facility] Diastolic (mm Hg) 70 01/30/2018 [facility] Respitory Rate 16 01/30/2018 [facility] Systolic (mm Hg) 127 01/29/2018 [facility] Diastolic (mm Hg) 77 01/29/2018 [facility] Temperature Oral (F) 98.0 F 01/29/2018 [facility] Heart Rate 69 01/29/2018 [facility] BMI Calculated 33.31 01/27/2018 [facility] Height 139.7 cm 01/27/2018 [facility] Weight 65 0 01/27/2018 [facility] Systolic (mm Hg) 147 11/12/2017 [facility] Diastolic (mm Hg) 71 11/12/2017 [facility] Respitory Rate 16 11/12/2017 [facility] Systolic (mm Hg) 151 11/12/2017 [facility] Diastolic (mm Hg) 78 11/12/2017 [facility] Respitory Rate 17 11/12/2017 [facility] Systolic (mm Hg) 182 11/12/2017 [facility] Diastolic (mm Hg) 82 11/12/2017 [facility] Respitory Rate 20 11/12/2017 [facility] Heart Rate 58 11/12/2017 [facility] Height 139.7 cm 11/11/2017 [facility] BMI Calculated 34.7 11/11/2017 [facility] Weight 67.727 11/11/2017 [facility] Heart Rate 63 11/11/2017 [facility] Temperature Oral (F) 98.4 F 11/11/2017 [facility] Encounters Location Location Details Encounter Type Encounter Number Reason For Visit Attending Provider ADM Date DC Date Status Source [facility] [id number] 02 Valerio Payton 06/04/2016 06/05/2016 [facility] [id number] Valerio Payton 08/02/2016 08/03/2016 [facility] Emergency [id number] Conner Murcia 11/11/2017 11/12/2017 [facility] [place] [facility] [id number] 05 Kalyn Jae 12/20/2017 12/21/2017 [facility] Observation [id number] Kalyn Jae 01/29/2018 01/30/2018 [facility] [place] [facility] [id number] 06 Kalyn Jae 01/18/2020 01/19/2020 [facility] [id number] 07 Kalyn Jae 02/02/2020 02/03/2020 [facility] Procedure Code Date Perfomer Comments Source Cholecystectomy [id number] [facility] Cystoscopy [id number] [facility]al[facility] Dilation and curettage [id number] [facility] BEN [facility]alos,[facility] Excision of synovial cyst [id number] [facility], BEN [facility]alos,[facility] Tubal ligation [id number] [facility], BEN Davalos,[facility] Assessment and Plan Assessment and Plan Date Source Extracted from:Title: POST OP DAY #1 Author: Kalyn Rowe MD Date: 01/30/18 Progress Note - Daily [facility] Completed: Jan, 13:23 by Kalyn Rowe MD RM: 429 - 1P, SE C4B AVINASH STEWART 47y (: 1970) F Attending: Kalyn Rowe MD 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 Pain well controlled. OBJECTIVE Gen: NAD CV: RRR Pulm: CTAB Abd: S/ATTP/ND/+BS Incision: Port sites x 4, c/d/i Ext: No C/C/E 24hr Labs 01/30 0735 Glucose Lvl 96 BUN 11 Creatinine Lvl 0.73 Sodium Lvl 145 Potassium Lvl 3.9 Chloride Lvl 106 CO2 28 AGAP 14.9 Calcium Lvl 8.5 eGFR 98 WBC 13.1 H RBC 4.18 L Hgb 12.1 Hct 36.2 MCV 86.7 MCH 29.0 MCHC 33.5 RDW 13.8 Platelet 233 MPV 10.0 Segs 77.7 H Monocytes 5.6 Lymphocytes 16.3 L Eosinophils 0.2 Basophils 0.2 Segs-Bands # 10.2 H Lymphocytes # 2.1 Monocytes # 0.7 Joe still necessary (Yes/No): Line still necessary (Yes/No): Vitals Tmp(F) Pulse BP RR SpO2 FIO2 01/30 07:45 98.3 55 134/79 1 4 --- --- 01/29 23:23 98.9 71 116/70 1 6 --- --- 01/29 21:37 ---- --- ----- 1 4 97 --- 01/29 16:16 98.0 69 127/77 1 6 --- --- 01/29 16:03 ---- --- ----- 1 6 95 --- 24 Hr Tmax: 98.9F (37.17c) at 01/29 23:2 3 Vital Signs are the last 5 in the past 48 hours. Date Wt(kg) Wt(lb) Ht(cm) Ht(in) Method 01/27 (initial) 65.00 143.00 Measured 01/27 139.70 55.00 Stated I&O Record In Out Bal 01/30 24hr Tot 750 350 400 01/29 24hr Tot 4178 1550 2628 Medications (19) Active Scheduled Meds: None Unscheduled Meds: None PRN Meds (3): 01/29/18 acetaminophen-hydrocodone (Norc o 5/325 oral tablet) 1 tab PO Q4H 01/29/18 morphine Sulfate 2 mg IVP Q4H 01/29/18 ondansetron (Zofran) 4 mg IVP Q 6H One Time Meds (15): (Completed) albuterol (albuterol (ANES)) ENDOTRACHEAL ONCE (Completed) dexamethasone (dexamethasone (ANES)) IV ONCE (Completed) ePHEDrine (ePHEDrine (ANES)) IV ONCE (Completed) famotidine (famotidine (ANES)) IV ONCE (Completed) fentaNYL (fentaNYL (ANES)) IV ONCE (Completed) glycopyrrolate (glycopyrrolate (ANES)) IV ONCE 01/29/18 (Discontinued) ketOROLAC (ANES ketOROLAC) 30 mg IVP ONCE (Completed) lidocaine (lidocaine (ANES)) IV ONCE (Completed) metoclopramide (metoclopramide (ANES)) IV ONCE (Completed) midazolam (midazolam (ANES)) IV ONCE (Completed) neostigmine (neostigmine (ANES)) IV ONCE 01/29/18 (Completed) phenazopyridine (P yridium) 200 mg PO ONCE (Completed) propofol (propofol (ANES)) IV ONCE (Completed) rocuronium (rocuronium (ANES)) IV ONCE 01/29/18 (Discontinued) scopolamine (AN ES scopolamine 1.5 mg transdermal film) 1 patch TOP ONCE Continuous Infusions (1): 01/29/18 Lactated Ringers Injection IV 1 ,000 mL 1,000 mL 125 ml/hr ASSESSMENT and EXAM 1. POD #1, s/p TLH/BS 2. Fibroids 3. Pelvic Pain 4. Dyspareunia 5. Pentec[employer] PLAN and TREATMENT 1. Stable for d/c home later today DIAGNOSES and PROBLEMS Ready for Discharge (Yes/No)? 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 Alcohol Never, Previous treatment: None. Smoking Status Never smoker; Exposure to Tobacco Smoke None; Cigarette Smoking Last 365 Days No; Reg Smoking Cessation Counseling No entered on: 01/29/18 01/27/2018 [facility] Social History TypeResponse Alcohol Never, Previous treatment: None. Substance Abuse Use: None. Smoking Status Never smoker; Exposure to Tobacco Smoke None; Cigarette Smoking Last 365 Days No; Reg Smoking Cessation Counseling No entered on: 01/29/18 01/27/2018 [facility] Social History TypeResponse Alcohol Never, Previous treatment: None. Substance Abuse Use: None. Smoking Status Never smoker; Exposure to Tobacco Smoke None; Cigarette Smoking Last 365 Days No; Reg Smoking Cessation Counseling No entered on: 01/29/18 01/27/2018 [facility] Social History TypeResponse Smoking Status Never smoker; Exposure to Tobacco Smoke None; Cigarette Smoking Last 365 Days No; Reg Smoking Cessation Counseling No entered on: 11/11/17 11/12/2017 [facility] Family History No Data Provided for This Section Advance Directives No Data Provided for This Section Functional Status No Data Provided for This Section
--- OUTSIDE RECORDS SUMMARY | 2020-05-19 18:20 | XMS REPORT | Clinical Summary ---
Author Author [facility] Organization [facility] Address Unknown Phone Unavailable Care Team Providers Care Product Picker Name Role Phone PCP Unavailable Allergies Comments Active Allergy Reactions Severity Noted Date Cefotaxime Rash High 04/19/2008 faint Codeine Other 04/19/2008 Ofloxacin Rash High 04/19/2008 Medications End Date Status Medication Sig Dispensed Refills Start Date Active lisinopril (PRINIVIL, Take 10 mg by 0 ZESTRIL) 10 mg tablet mouth daily. Active albuterol (VENTOLIN Inhale 2 3 Month 1 HFA,PROVENTIL HFA,PROAIR Puffs by Supply 6 HFA) 90 mcg/actuation mouth 4 times inhalerIndications: Cough daily as needed for Wheezing. Active Problems Problem Noted Date Cough 12/30/2015 Right wrist pain 12/26/2015 Depression 05/26/2008 Family History Medical History Relation Name Comments Diabetes Maternal Grandmother Heart Maternal Grandmother Hypertension Maternal Grandmother Hypertension Mother Relation Name Status Comments Maternal Grandmother Mother Alive Social History Date Tobacco Use Types Packs/Day Years Used Never Smoker Smokeless Tobacco: Never Used Tobacco Cessation: Counseling Given: No Drinks/Week oz/Week Comments Alcohol Use 0 Standard drinks or equivalent 0.0 No Sex Assigned at Date Recorded Not on file Industry Job Start Date Occupation Not on file Not on file Not on file Travel End Travel History Travel Start No recent travel history available. Last Filed Vital Signs Not on file Plan of Treatment Health Maintenance Due Date Last Done Comments HPV Cervical Cancer Scrn 2000 Pap Cervical Cancer Scrn 09/26/2008 09/27/2003 Breast Cancer Scrn 2010 (Yearly) IMM Influenza Seasonal 04/14/2020 Oct to September (>/= 19 yrs) Results Not on fileafter 05/14/2019
--- OUTSIDE RECORDS SUMMARY | 2020-05-19 18:21 | XMS REPORT | Continuity of Care Document ---
Author Author [facility] t Organization [facility] Address Formerly [facility] [place] [address] Phone Unavailable Care Team Providers Care Silk Screener Name Role Phone PIPO JERNIGAN, JAMILA PCP Miri THOMPSON YICHING Attphys Unavailable JaeEufemia Kalyn Attphys Miri STOKES LAIRD Attphys Unavailable Murcia, Unruly Conner Attphys PaytonDutch cramer Valerio Attphys Miri THOMPSON YICHING Admphys Unavailable Payers Payer Name Policy Type Policy Number Effective Date Expiration Date Isidro Marx Pos [id number] 2011 00:00:00 TITA hernandez [facility] Problems Condition Name Condition Details Condition Category Status Onset Date Resolution Date Last Treatment Date Treating Clinician Comments Source UNK UNK Active 01/09/2018 [facility] Active 2018-01-09 00:00:00 2018-01-30 15:39:00 Eliseo Brunson STROKE SYMPTOMS STRO KE SYMPTOMS Active 11/11/2017 [facility] Active 2017-11-11 00:00:00 2017-11-11 18:51:00 Christina Brunson R31.0 - GROSS HEMATURIA R31. 0 - GROSS HEMATURIA Active 05/08/2016 [facility] [place] Diagnosis Active 2016-05-08 00:01:00 2016-06-04 08:42:00 Christina Brunson Z12.31 - ENCNTR SCREEN MAMMOGRAM FOR MA Z12.31 - ENCNTR SCREEN MAMMOGRAM FOR MA Active 05/08/2016 [facility] [place] Diagnosis Active 2016-05-08 00:01:00 2016-08-02 [facility] 04/17/2016 [facility] Diagnosis Active 2016-04-17 00:00:00 2016-06-05 16:02:00 [facility] Cough Cough Disease Active 2015-12-30 00:00:00 [facility] Right wrist pain Right wrist pain Disease Active 2015-12-26 00:00:00 [facility] 753.15 - RENAL DYSPLASIA 753. 15 - RENAL DYSPLASIA Active 11/24/2013 [facility] [place] Diagnosis Active 2013-11-24 00:01:00 2014-03-06 20:59:00 [facility] Depression Depression Disease Active 2008-05-26 00:00:00 [facility] Essential (primary) hypertension Essential (primary) hypertension 08/19/2018 [facility] Problem 2018-08-19 12:58:01 [facility] Subserosal leiomyoma of uterus Subserosal leiomyoma of uterus 08/19/2018 [facility] Problem 2018-08-19 12:5 8:01 [facility] Other noninflammatory disorders of ovary, fallopian tu be and broad ligament Other noninflammatory disorders of ovary, fallopian tube and broad ligament 08/19/2018 [facility] Problem 5 12:58:01 [facility] Excessive and frequent menstruation with regular cycle Excessive and frequent menstruation with regular cycle 08/19/2018 [facility] Problem 2018-08-19 12:58:01 [facility] Unspecified dyspareunia Unsp ecified dyspareunia 08/19/2018 [facility] Problem 2018-08-19 12:58:01 [facility] Pelvic and perineal pain Pelv ic and perineal pain 08/19/2018 [facility] Problem 2018-08-19 12:58:01 [facility] Major depressive disorder, single episode, unspecified Major depressive disorder, single episode, unspecified 08/19/2018 [facility] Problem 2018-08-19 12:58:01 [facility] Obesity, unspecified Obes ity, unspecified 08/19/2018 [facility] Problem 2018-08-19 12:58:01 [facility] Body mass index (BMI) 33.0-33.9, adult Body mass index (BMI) 33.0-33.9, adult 08/19/2018 [facility] Problem 2018-08-19 12:58:01 Christina Brunson Tubal ligation status Tuba l ligation status 08/19/2018 [facility] Problem 2018-08-19 12:58:01 M emoriradha Boy Constipation, unspecified Cons tipation, unspecified 08/19/2018 [facility] Problem 2018-08-19 12:58:01 Christina Brunson Encounter for screening mammogram for malignant neopla sm of breast Encounter for screening mammogram for malignant neoplasm of breast 01/20/2020 [facility] [place] Problem 2020-01-20 23:01:51 Christina Brunson Hypertensive disorder, systemic arterial (disorder) Hypertensive disorder, systemic arterial (disorder) Active Problem 02/04/2020 [facility] Corry [facility], BEN [facility] Problem Active 2020-02-04 23:30:01 Christina Brunson Mixed anxiety and depressive disorder (disorder) Mixed anxiety and depressive disorder (disorder) Active Problem 02/04/2020 [facility] BEN [facility] Problem Active 2020-02-04 23:30:01 Christina Brunson Uterine leiomyoma (disorder) U terine leiomyoma (disorder) Active [facility]04[facility]2020 [facility] Problem Active 2020-02-04 23:30:01 Tyson Brunson Intramural leiomyoma of uterus Intramural leiomyoma of uterus 02/11/2018 08/19/2018 [facility] Problem 2018-01 03:07:33 2018-08-19 12:58:01 2018-08-19 12:58:01 Christina Brunson Occipital neuralgia Occi pital neuralgia 11/12/2017 11/22/2017 [facility] Problem 2017-11-12 05:00:00 2017-11-22 00:41: 48 2017-11-22 00:41:48 Christina Brunson Allergies, Adverse Reactions, Alerts Allergy Name Allergy Type Status Severity Reaction(s) Onset Date Inacti ve Date Treating Clinician Comments Source Cefotaxime Propensity to adverse reactions to drug Active Rash 2008-04-19 00:00:00 [facility] Codeine Propensity to adverse reactions to drug Active Other 2008-04-19 00:00:00 faint [facility] Ofloxacin Propensity to adverse reactions to drug Active Rash 2008-04-19 00:00:00 [facility] codeine codeine Active [facility] Claforan Claforan Active [facility] Floxin Floxin Active [facility] Family History Family Member Diagnosis Comments Start Date Stop Date Source Maternal grandmother [facility] Maternal grandmother [facility] Maternal grandmother Hy[facility]ension [facility] Natural mother Hypertension [facility] Social History Social Habit Start Date Stop Date Quantity Comments Source Sex Assigned At [facility] Social History 2018-01-27 15:26:36 2018-01-27 15:26:36 [facility] Alcohol intake 2016-02-02 00:00:00 2016-02-02 00:00:00 Current non-drinker of alcohol (finding) [facility] Smoking Status Start Date Stop Date Source Social History [facility] Medications Ordered Medication Name Filled Medication Name Start Date Stop Da te Current Medication? Ordering Clinician Indication Dosage Frequency Signature (SIG) Comments Components Source ibuprofen 600 mg oral tablet 2018-01-30 18:34:00 No 600 mg, PO, Q6H, PRN Pain Score 1-3, # 30 tab, 0 Refill(s) [facility] tramadol hydrochloride 50 MG Oral Tablet 2018-01-30 18:34:00 Yes 50 mg, PO, Q6H, PRN Pain Score 1-3, 0 Refill(s) [facility] [place] Docusate Sodium 100 MG Oral Tablet [DOK] 2018-01-30 18:34:00 Yes 100 mg = 1 tab, PO, BID, # 60 tab, 0 Refill(s) [facility] tramadol hydrochloride 50 MG Oral Tablet 2018-01-30 18:33:00 No Notes: Not to exceed 400mg/day. (Same As: Ultram) [facility] Ibuprofen 2018-01-30 18:33:00 No Notes: (Same as: Advil) Give with food. Christina Brunson ketOROLAC 30 mg/mL injectable solution 2018-01-29 23:00:00 No 4 days MEDICATION WASTE Product Size: 30 mg Product Wasted: ___ mg Christina Brunson Zofran 2018-01-29 21:00:00 No Notes: (Same as: Zofran) PROTECT FROM LIGHT Christina Brunson Acetaminophen 325 MG / Hydrocodone Bitartrate 5 MG Oral Tabl et [[place] 5/325] 2018-01-29 18:27:00 No Notes: (Same as: [place] 325/5) Do not exceed 4gm/day of acetaminophen. [facility] Zofran 2018-01-29 18:25:00 No Notes: (Same as: Zofran) [facility] Morphine 2018-01-29 18:23:00 No Not es: (Same as:MORPhine Sulfate) [facility] Boy 72 HR Scopolamine 0.0139 MG/HR Transdermal Patch 2018-01-29 15:1 1:00 No 1 patch, Route: TOP, Drug Fo rm: ERFILM, Dosing Weight 65, kg, ONCE, Apply behind ear. Avoid use in elderly., Start date: 01/29/18 10:11:00 CDT, Stop date: 01/29/18 10:11:[address] [facility] Meperidine 2018-01-29 15:11:00 No 12.5 mg, Route: IVP, Q30Min, Dosing Weight 65, kg, PRN Other -See Comment, For shivering, Start date: 01/29/18 10:11:00 CDT, Duration: 2 doses or times, Stop date: Limited # of times [facility] Diphenhydramine 2018-01-29 15:11:00 No 12.5 mg, Route: IVP, Drug form: INJ, Q6H, Dosing Weight 65, kg, PRN Itching, Start date: 01/29/18 10:11:00 CDT, Duration: 30 day, Stop date: 02/28/18 10:10:00 CDT [facility] Promethazine 2018-01-29 15:11:00 No 6.25 mg, Route: IVPB, ONCE, Dosing Weight 65, kg, PRN Nausea & Vomiting, Start date: 01/29/18 10:11:00 CDT [facility] Ondansetron 2018-01-29 15:11:00 No 4 mg, Route: IVP, ONCE, Dosing Weight 65, kg, PRN Nausea & Vomiting, Start date: 01/29/18 10:11:00 CDT [facility] Naloxone 2018-01-29 15:11:00 No 0.4 mg, Route: IVP, Q2MIN, Dosing Weight 65, kg, PRN Narcotic Reversal, Start date: 01/29/18 10:11:00 CDT, Duration: 8 doses or times, Stop date: Limited # of times [facility] Flumazenil 2018-01-29 15:11:00 No 0.2 mg, Route: IVP, PRN, Dosing Weight 65, kg, PRN Benzodiazepine Reversal, Initial dose, Start date: 01/29/18 10:11:00 CDT, Duration: 30 day, Stop date: 02/28/18 10:10:00 CDT [facility] Fentanyl 2018-01-29 15:11:00 No 50 microgram, Route: IVP, Q5Min, Dosing Weight 65, kg, PRN Pain Score 7-10, Priority: Routine, Start date: 01/29/18 10:11:00 CDT, Duration: 2 doses or times, Stop date: Limited # of times [facility] Hydromorphone 2018-01-29 15:11:00 No 0.5 mg, Route: IVP, Q5Min, Dosing Weight 65, kg, PRN Pain Score 7-10, Start date: 01/29/18 10:11:00 CDT, Duration: 4 doses or times, Stop date: Limited # of times [facility] Oxycodone 2018-01-29 15:11:00 No 10 mg, Route: PO, Drug form: TAB, Q4H, Dosing Weight 65, kg, PRN Pain Score 7-10, Start date: 01/29/18 10:11:00 CDT, Duration: 30 day, Stop date: 02/28/18 10:10:00 CDT [facility] Morphine 2018-01-29 15:11:00 No 2 mg, Route: IVP, Q5Min, Dosing Weight 65, kg, PRN Pain Score 4-6, Start date: 01/29/18 10:11:00 CDT, Duration: 5 doses or times, Stop date: Limited # of times [facility] Calcium Chloride 0.0014 MEQ/ML / Potassi um Chloride 0.004 MEQ/ML / Sodium Chloride 0.103 MEQ/ML / Sodium Lactate 0.028 MEQ/ML Injectable Solution 2018-01-29 15:11:00 No 1,000 mL, Rate: 125 ml/hr, Infuse over: 8 hr, Route: IV, Dosing Weight 65 kg, Total Volume: 1,000, Start date: 01/29/18 10:11:00 CDT, Duration: 30 day, Stop date: 02/28/18 10:10:00 CDT, 1.62, m2 [facility] Acetaminophen 2018-01-29 15:11:00 No 1,000 mg, Route: IVPB, Drug form: INJ, ONCE, Dosing Weight 65, kg, PRN Pain Score 1-3, Start date: 01/29/18 10:11:00 CDT [facility] Ketorolac 2018-01-29 15:11:00 No 30 mg, Route: IVP, ONCE, Dosing Weight 65, kg, Start date: 01/29/18 10:11:00 CDT, Stop date: 01/29/18 10:11:00 CDT [facility] glycopyrrolate ([facility]) 2018-01-29 14:59:00 No Route: IV, Drug form: INJ, ONCE, Stop date: 01/29/18 9:59:00 CDT [facility] neostigmine ([facility]) 2018-01-29 14:59:00 No Route: IV, Drug form: INJ, ONCE, Stop date: 01/29/18 9:59:[address] [facility] Naloxone 2018-01-29 14:50:00 No Notes: Same as Narcan [facility] Morphine 2018-01-29 14:50:00 No Notes: Dose: Delay: Basal rate: 4hr limit: (Same as:Hair) [facility] Calcium Chloride 0.0014 MEQ/ML / Potassi um Chloride 0.004 MEQ/ML / Sodium Chloride 0.103 MEQ/ML / Sodium Lactate 0.028 MEQ/ML Injectable Solution 2018-01-29 14:50:00 No 1,000 mL, Rate: 125 ml/hr, Infuse over: 8 hr, Route: IV, Dosing Weight 65 kg, Total Volume: 1,000, Start date: 01/29/18 9:50:00 CDT, Duration: 30 day, Stop date: 02/28/18 9:49:00 CDT, 1.62, m2 [facility] albuterol ([facility]) 2018-01-29 14:40:00 No Route: ENDOTRACHEAL, Drug form: AERO/A, ONCE, Stop date: 01/29/18 9:40:00 CDT [facility] ePHEDrine (ANES) 2018-01-29 14:30:00 No Route: IV, Drug form: INJ, ONCE, Stop date: 01/29/18 9:30:00 CDT Fl kashif Brunson lidocaine (ANES) 2018-01-29 13:40:00 No Route: IV, Drug form: INJ, ONCE, Stop date: 01/29/18 8:40:00 CDT Fl kashif Brunson propofol (ANES) 2018-01-29 13:40:00 No Route: IV, Drug form: INJ, ONCE, Stop date: 01/29/18 8:40:00 CDT Fl kashif Brunson fentaNYL (ANES) 2018-01-29 13:40:00 No Route: IV, Drug form: INJ, ONCE, Stop date: 01/29/18 8:40:00 CDT Fl kashif Brunson rocuronium (ANES) 2018-01-29 13:40:00 No Route: IV, Drug form: INJ, ONCE, Stop date: 01/29/18 8:40:00 CDT Fl kashif Brunson metoclopramide (ANES) 2018-01-29 13:40:00 No Route: IV, Drug form: INJ, ONCE, Stop date: 01/29/18 8:40:00 CDT [facility] dexamethasone (ANES) 2018-01-29 13:35:00 No Route: IV, Drug form: INJ, ONCE, Stop date: 01/29/18 8:35:00 CDT [facility] midazolam (ANES) 2018-01-29 13:35:00 No Route: IV, Drug form: SOLN, ONCE, Stop date: 01/29/18 8:35:00 CDT Fl kashif Brunson famotidine (ANES) 2018-01-29 13:35:00 No Route: IV, Drug form: INJ, ONCE, Stop date: 01/29/18 8:35:00 CDT Fl kashif Brunson acetaminophen (ANES) 10 mg 2018-01-29 13:25:00 No Route: IV, Drug form: INJ, Start date: 01/29/18 8:25:00 CDT, Stop date: 01/29/18 9:25:00 CDT [facility] gentamicin (ANES) 40 mg 2018-01-29 12:51:00 No Route: IV, Drug form: INJ, Start date: 01/29/18 7:51:00 CDT, Stop date: 01/29/18 8:51:00 CDT [facility] Cleocin Phosphate (ANES) 900 mg 2018-01-29 12:51:00 No Route: IV, Drug form: INJ, Start date: 01/29/18 7:51:00 CDT, Stop date: 01/29/18 8:51:00 CDT [facility] Lactated Ringers Injection IV (ANES) 1000 mL 2018-01-29 12:20:00 No Route: IV, Total Volume: 1,000, Start date: 01/29/18 7:20:00 CDT, Stop date: 01/29/18 8:20:00 CDT [facility] Pyridium 2018-01-29 11:12:00 No 200 mg, Route: PO, ONCE, Dosing Weight 65, kg, Start date: 01/29/18 6:12:00 CDT, Stop date: 01/29/18 6:12:00 CDT [facility] Calcium Chloride 0.0014 MEQ/ML / Potassi um Chloride 0.004 MEQ/ML / Sodium Chloride 0.103 MEQ/ML / Sodium Lactate 0.028 MEQ/ML Injectable Solution 2018-01-29 10:57:00 No 1,000 mL, Rate: 25 ml/hr, Infuse over: 40 hr, Route: IV, Dosing Weight 65 kg, Total Volume: 1,000, Start date: 01/29/18 5:57:00 CDT, Duration: 30 day, Stop date: 02/28/18 5:56:00 CDT, 1.62, m2 [facility] Valsartan-HCTZ 2018-01-27 16:00:00 Yes Valsartan-HCTZ, Refill(s) 0 [facility] Celexa 2018-01-27 15:56:00 Yes PO, Daily, 0 Refill(s) [facility] Hydrochlorothiazide 25 MG / valsartan 160 MG Oral Tablet 2018-01-27 15:56:00 No 1 tab, PO, Daily, 0 Refill(s) [facility] ketOROLAC 30 mg/mL injectable solution 2017-11-12 05:14:00 No 30 mg, Route: IM, Drug form: INJ, ONCE, Dosing Weight 67.727, kg, Priority: STAT, Start date: 11/12/17 0:14:00 CDT, Stop date: 11/12/17 0:14:00 CDT Christina Brunson ketOROLAC 30 mg/mL injectable solution 2017-11-12 05:03:00 No 4 days MEDICATION WASTE Product Size: 30 mg Product Wasted: ___ mg Christina Brunson lisinopril (PRINIVIL, ZESTRIL) 10 mg tablet 2016-02-02 10:24:50 Yes 10mg QD Take 10 mg by mouth daily. [facility] albuterol (VENTOLIN HFA,PROVENTIL HFA,PROAIR HFA) 90 mcg/act uation inhaler 2015-12-30 00:00:00 Yes Cough 2{puff} Inhale 2 Puffs by mouth 4 times daily as needed for Wheezing. [facility] Duloxetine Hcl (Cymbalta) 20 Mg Capcr Duloxetine Hcl (Cymbalta) 20 Mg Capcr Yes 20 Daily [facility] Lisinopril (Prinivil) 10 Mg Tablet Lisinopril (Prinivil) 10 Mg Tablet Yes 10 Daily [facility] Nifedipine (Nifedipine Er) 30 Mg Tablet.er Nifedipine (Nifedipine Er) 30 Mg Tablet.er Yes 1 Daily [facility] Citalopram Hydrobromide (Celexa) 20 Mg Tablet, 20 Mg O ral Citalopram Hydrobromide (Celexa) 20 Mg Tablet, 20 Mg Oral 2019-06-22 00:00:00 No 20 Daily [facility] Gabapentin 100 Mg Capsule, 100 Mg Oral Gabapentin 100 Mg Capsule , 100 Mg Oral 2012-07-22 00:00:00 No 100 Daily [facility] Vital Signs Vital Name Observation Time Observation Value Comments Source Respitory Rate 2018-01-30 13:18:00 Mickie Peguero Systolic (mm Hg) 2018-01-30 12:45:00 Tyson Brunson Diastolic (mm Hg) 2018-01-30 12:45:00 Mem rafiq Brunson Respitory Rate 2018-01-30 12:45:00 [facility] [place] Heart Rate 2018-01-30 12:45:00 [facility] Temperature Oral (F) 2018-01-30 12:45:00 98.3 F [facility] Heart Rate 2018-01-30 04:23:00 [facility] Temperature Oral (F) 2018-01-30 04:23:00 98.9 F [facility] [place] Systolic (mm Hg) 2018-01-30 04:23:00 Tyson [facility] [place] Diastolic (mm Hg) 2018-01-30 04:23:00 [facility] [place] Respitory Rate 2018-01-30 04:23:00 [facility] [place] Systolic (mm Hg) 2018-01-29 21:16:00 Tyson [facility] [place] Diastolic (mm Hg) 2018-01-29 21:16:00 [facility] [place] Temperature Oral (F) 2018-01-29 21:16:00 98.0 F [facility] Heart Rate 2018-01-29 21:16:00 [facility] BMI Calculated 2018-01-27 15:23:00 [facility] Height 2018-01-27 15:23:00 139.7 cm [facility] Weight 2018-01-27 15:23:00 [facility] [place] Systolic (mm Hg) 2017-11-12 07:08:00 Tyson rial Boy Diastolic (mm Hg) 2017-11-12 07:08:00 [facility] [place] Respitory Rate 2017-11-12 07:08:00 [facility] [place] Systolic (mm Hg) 2017-11-12 04:33:00 Tyson rial [place] Diastolic (mm Hg) 2017-11-12 04:33:00 [facility] [place] Respitory Rate 2017-11-12 04:33:00 [facility] [place] Systolic (mm Hg) 2017-11-12 03:30:00 Tyson rial [place] Diastolic (mm Hg) 2017-11-12 03:30:00 [facility] [place] Respitory Rate 2017-11-12 03:00:00 [facility] Heart Rate 2017-11-12 02:34:00 [facility] Height 2017-11-11 22:23:00 139.7 cm [facility] [place] BMI Calculated 2017-11-11 22:23:00 [facility] [place] Weight 2017-11-11 22:23:00 [facility] Heart Rate 2017-11-11 22:23:00 [facility] Temperature Oral (F) 2017-11-11 22:23:00 98.4 F [facility] Procedures Procedure Date / Time Performed Performing Clinician [facility] e Computed tomography of brain without radiopaque contrast 201 03-26-09 00:00:00 DANY STOKES [facility] X-ray of chest, two views 2019-06-22 00:00:00 DANY STOKES [facility] Cholecystectomy [facility] Cystoscopy [facility] Dilation and curettage [facility] Excision of synovial cyst [facility] [place] Tubal ligation [facility] Plan of Care Planned Activity Planned Date Details Comments Source [facility] Scheduled Test 2020-04-14 00:00:00 IMM Influenza Seas onal Apr to September (>/= 19 yrs) [code = IMM Influenza Seasonal Apr to September (>/= 19 yrs)] [facility] Scheduled Test 2010 00:00:00 Breast Cancer Scrn (Yearly) [code = Breast Cancer Scrn (Yearly)] [facility] Scheduled Test 2008-09-26 00:00:00 Screening for john gnant neoplasm of cervix (procedure) [code = 777027106] [facility] Scheduled Test 2000 00:00:00 Screening for john gnant neoplasm of cervix (procedure) [code = 539288360] [facility] Encounters Start Date/Time End Date/Time Encounter Type Admission Type Attendi [facility] Care Department Encounter ID Source 2020-02-02 13:37:00 2020-02-02 23:59:00 Outpatient Gilberto Chin [id number] 2020-01-18 07:04:00 2020-01-18 23:59:00 [id number] 2019-06-22 17:29:00 2019-06-22 19:30:00 Departed Emergency Room 1 DANY STOKES [facility] [id number] [facility] 2018-01-29 09:50:00 2018-01-30 14:52:00 Outpatient Zev Chin [facility] [id number] 2017-12-20 14:46:00 2017-12-20 23:59:00 [facility] [id number] 2017-11-11 17:12:00 2017-11-12 02:16:00 [facility] [id number] 2017-11-11 17:12:00 2017-11-12 02:16:00 Outpatient Jessie [facility]Connero [facility] [id number] 2016-08-02 12:45:00 2016-08-02 23:59:00 Outpatient Valerio Cain [facility] [id number] 2016-06-04 08:33:00 2016-06-04 23:59:00 Outpatient Valerio Cain [facility] [id number] Results Test Description Test Time Test Comments Results Result Comments Source CT ABDOMEN/PELVIS W 2020-05-16 15:56:00 [facility] : 1970 Sex: F [place] [address] Patient Name: AVINASH STEWART MR #: [id number] : 1970 Age/Sex: 49/F Req #: [id number] [facility] Physician: AMBER THOMPSON MD Ordered by: GOOD NOEL [employer]IATOR Report #: [id number] Location: [facility] Room/Bed: [place] [address] Procedure: [id number] CT/CT ABDOMEN/PELVIS W Exam Date: 05/16/20 Exam Time: 1200 REPORT STATUS: Signed EXAM: CT Abdomen and Pelvis WITH intravenous contrast INDICATION: Abdominal pain COMPARISON: CT abdomen and pelvis of 01/09/2014 TECHNIQUE: Abdomen and pelvis were scanned utilizing a multidetector helical scanner from the lung base to the pubic symphysis after administration of IV contrast. Coronal and sagittal reformations were obtained. Routine protocol was performed. Scan was performed during portal venous phase. IV CONTRAST: 100mL of Isovue 370 ORAL CONTRAST: Water RADIATION DOSE: Total DLP: 726 mGy*cm Dose modulation, iterative reconstruction, and/or weight based adjustment of the mA/kV was utilized to reduce the radiation dose to as low as reasonably achievable. FINDINGS: LOWER THORAX: Normal. HEPATOBILIARY: Severe diffuse hepatic steatosis. No focal liver lesion. No biliary ductal dilation. Status post cholecystectomy. SPLEEN: No splenomegaly. PANCREAS: No focal masses or ductal dilatation. ADRENALS: No adrenal nodules. KIDNEYS/URETERS: Horseshoe kidney. No hydronephrosis or renal calculi. No solid renal mass lesions. 1.2 cm left renal cyst. PELVIC ORGANS/BLADDER: Unremarkable. PERITONEUM / RETROPERITONEUM: No free air or fluid. LYMPH NODES: No lymphadenopathy. VESSELS: Unremarkable. GI TRACT: No distention or wall thickening. Normal appendix. BONES AND SOFT TISSUES: Unremarkable. IMPRESSION: Severe diffuse hepatic steatosis. Horseshoe kidney. Signed by: Belinda Riley MD on 05/16/2020 4:00 PM Dictated By: BELINDA RILEY MD 1600 Transcribed By: KADY on 05/16/20 1600 COPY TO: GOOD NOEL NP CHEST SINGLE (PORTABLE) 2020-05-14 13:35:00 [facility] : 1970 Sex: F [facility] [address] [place] [address] Patient Name: AVINASH STEWART MR #: [id number] : 1970 Age/Sex: 49/F Req #: [id number] Adm Physician: Ordered by: DANY STOKES MD Report #: [id number] Location: ER Room/Bed: Procedure: [id number] DX/CHEST SINGLE (PORTABLE) Exam Date: 05/14/20 Exam Time: 1225 REPORT STATUS: Signed EXAMINATION: CHEST SINGLE (PORTABLE) INDICATION: Chest pain. COMPARISON: Multiple prior chest x-rays including most recent on 06/22/2019 FINDINGS: TUBES and LINES: None. LUNGS: Normal lung volumes. Lungs are clear. No consolidations. PLEURA: No pleural effusion or pneumothorax. HEART AND MEDIASTINUM: The cardiomediastinal silhouette is unremarkable. BONES AND SOFT TISSUES: No acute osseous lesion. Soft tissues are unremarkable. UPPER ABDOMEN: No free air under the diaphragm. IMPRESSION: No acute thoracic radiographic abnormality. Signed by: Casey Chin MD on 05/14/2020 1:36 PM Dictated By: CASEY CHIN MD 35 Transcribed By: KADY on 05/14/201335 COPY TO: DANY STOKES MD CT BRAIN WO 2020-05-14 12:46:00 [facility] : 1970 Sex: F [place] [address] Patient Name: AVNIASH STEWART MR #: [id number] : 1970 Age/Sex: 49/F Req #: [id number] Adm Physician: Ordered by: DANY STOKES MD Report #: [id number] Location: Room/Bed: Procedure: [id number] CT/CT BRAIN WO Exam Date: 05/14/20 Exam Time: 1227 REPORT STATUS: Signed History: 49-year-old female with headaches, high blood pressure Comparison studies: Head CT 06/22/2019 Technique: Axial images were obtained from the skull base to the vertex. Coronal and sagittal reconstructions obtained from the axial data. Dose modulation, iterative reconstruction, and/or weight based adjustment of the mA/kV was utilized to reduce the radiation dose to as low as reasonably achievable. Intravenous contrast: None Findings: Scalp/skull: No abnormalities. No fractures, blastic or lytic lesions. 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 No other mass or fluid collection. Brain sulci: Appropriate size for patient's age. Ventricles: Normal in size and configuration. No hydrocephalus. Parenchyma: No abnormal densities. No masses, hemorrhage, acute or chronic cortical vascular insults. Sellar/suprasellar region: Partial empty sella is is nonspecific and is unchanged from 06/22/2019. Craniocervical junction: Patent foramen magnum. No Chiari one malformation. IMPRESSION: No acute abnormalities. A preliminary report was provided by Dr. Villasenor on 05/14/2020 at 12:[address] Quan agrees with the preliminary findings of this report. Signed by: Dr. David Quan M.D. on 05/14/2020 12:57 PM Dictated By: DAVID QUAN MD 1257 Transcribed By: KADY on 05/14/20 1257 COPY TO: DANY STOKES MD Urine WBC 2019-06-22 18:51:00 Test Item Urine WBC (test code = 5821-4) 6-10 0-5 [facility] [id number] 18:51:00* Test Item Value Reference Range Interpretation Comments Urine RBC (test code = 80521-6) 6-10 0-5 H [facility] CenterU[facility] Eqmmpmyp3644-55-61 18:51:00* Test Item Value Reference Range Interpretation Comments Urine Bacteria (test code = 44902-1) RARE NONE [facility] Center[facility] Epithelial Ywzdr0290-02-49 18:51:00 * Test Item Value Reference Range Interpretation Comments Urine Epithelial Cells (test code = 59880-0) MODERATE NONE [facility] CenterCHEST 2 PBWMP1689-04-87 18:49:00 [facility] [address] [address] Patient Name: AVINASH STEWART MR #: [id number] : 1970 Age/Sex: 48/F Req #: [id number] Adm Physician: Ordered by: DANY STOKES MD Report #: [id number] Location: ER Room/Bed: Procedure: [id number] D X/CHEST 2 VIEWS Exam Date: 06/22/19 Exam Time: 1758 REPORT STATUS: Signed EXAMINATIO N: CHEST 2 VIEWS INDICATION: confused [id number] CO MPARISON: None FINDINGS: PA and lateral views TUBES and LINES: None. LUNGS: Lungs are well inflated. There is no evidence of pneumonia or pulmonary edema. PLEURA: No pleural effusion or pneumothorax. HE ART AND MEDIASTINUM: The cardiomediastinal silhouette is unremarkable.. BONES AND SOFT TISSUES: No focal osseous lesions. Soft tissues are unremark able. UPPER ABDOMEN: Cholecystectomy clips in the upper abdomen. IMPRE SSION: No acute thoracic abnormality. Signed by: Dr. Ector delcid MD on 06/22/2019 6:49 PM Dictated By: ECTOR MOONEY MD Electronica lly Signed By: ECTOR MOONEY MD on 06/22/191848 Transcribed By: KADY on 06/22/191848 COPY TO: DANY STOKES MD Urine Nfdjz3002-45-21 18:41:00* Test Item Value Reference Range Interpretation Comments Urine Color (test code = 5778-6) YELLOW YELLOW [facility] Lfxjhks8669-87-27 18:41:00* Test Item Value Reference Range Interpretation Comments Urine Clarity (test code = 71108-4) SL CLOUDY CLEAR [facility] CenterU[facility] Specific Vukypyk2418-54-44 18:41:00 * Test Item Value Reference Range Interpretation Comments Urine Specific [place] (test code = 5811-5) 1.010 1.010-1.02 5 [facility] CenterU[facility] dB5851-45-09 18:41:00* Test Item Value Reference Range Interpretation Comments Urine pH (test code = 77750-1) 6 5-7 [facility] Leukocyte Bbhscbmr6831-81-12 18:41:00* Test Item Value Reference Range Interpretation Comments Urine Leukocyte Esterase (test code = 5799-2) NEGATIVE NEGATIVE [facility] CenterU[facility] Heitobe0227-97-85 18:41:00* Test Item Value Reference Range Interpretation Comments Urine Nitrite (test code = 24724-5) NEGATIVE NEGATIVE [facility] CenterU[facility] Rufdtiz6109-07-24 18:41:00* Test Item Value Reference Range Interpretation Comments Urine Protein (test code = 5804-0) NEGATIVE NEGATIVE [facility] Center[facility] Glucose (UA)2019-06-22 18:41:00* Test Item Value Reference Range Interpretation Comments Urine Glucose (UA) (test code = 2349-9) NEGATIVE NEGATIVE [facility] CenterU[facility] Qkplltx6816-00-38 18:41:00* Test Item Value Reference Range Interpretation Comments Urine Ketones (test code = 09293-9) NEGATIVE NEGATIVE [facility] Center[facility] Opiates Zuzalk9098-41-09 18:41:00* Test Item Value Reference Range Interpretation Comments Urine Opiates Screen (test code = 42667-3) NEGATIVE NEGATIVE ALL TESTS PERFORMED MANUALLY ON Apse TOX/SEE TESTPalestine Regional Medical CenterUrine Barbiturates Tppywm1699-34-58 18:41:00* Test Item Value Reference Range Interpretation Comments Urine Barbiturates Screen (test code = 203839940) NEGATIVE NEGA TIVE [facility] CenterU[facility] Phencyclidine Elglox2702-77-02 18:41:00* Test Item Value Reference Range Interpretation Comments Urine Phencyclidine Screen (test code = 23882-6) NEGATIVE NEGAT KENIA [facility] CenterUrine Amphetamines Xxmbsg5270-74-09 18:41:00* Test Item Value Reference Range Interpretation Comments Urine Amphetamines Screen (test code = 38950-5) NEGATIVE NEGATI VE [facility] CenterU[facility] Methamphetamines Cpesgx7899-57-14 18:41:00* Test Item Value Reference Range Interpretation Comments Urine Methamphetamines Screen (test code = Urine Metha mphetamines Screen) NEGATIVE NEGATIVE [facility] CenterU[facility] Benzodiazepines Yfhcsj8129-02-40 18:41:00* Test Item Value Reference Range Interpretation Comments Urine Benzodiazepines Screen (test code = 78443-6) NEGATIVE NEG ATIVE [facility] CenterU[facility] Cocaine Nqexwy7661-08-07 18:41:00* Test Item Value Reference Range Interpretation Comments Urine Cocaine Screen (test code = 3398-5) NEGATIVE NEGATIVE [facility] CenterUrine Cannabinoids Tklyxp4722-66-76 18:41:00* Test Item Value Reference Range Interpretation Comments Urine Cannabinoids Screen (test code = 20953-6) NEGATIVE NEGATI VE THESE RESULTS ARE FOR MEDICAL TREATMENT ONLYTHIS REPORT CONTAINS UNCONFIR MED SCREENING RESULTS*POSITIVE RESULTS WILL BE CONFIRMED BY REFERENCE LAB UPON R EQUEST CUT-OFFDRUG CLASS CONCENTRATION ng/mLAmphetamines 1000Methamphetamines 1000Cocaine 300Opiate 300Phencyc lidine 25Cannabinoid 50Barbiturates 300Benzodiazepine 300Methadone 300[facility] CenterUrine Methadone Umdvza5834-53-98 18:41:00* Test Item Value Reference Range Interpretation Comments Urine Methadone Screen (test code = 43810-9) NEGATIVE NEGATIVE THESE RESULTS ARE FOR MEDICAL TREATMENT ONLYTHIS REPORT CONTAINS UNCONFIR MED SCREENING RESULTS*POSITIVE RESULTS WILL BE CONFIRMED BY REFERENCE LAB UPON R EQUEST CUT-OFFDRUG CLASS CONCENTRATION ng/mLAmphetamines 1000Methamphetamines 1000Cocaine Metabolite 300Opiate 300Phencyc lidine 25Cannabinoid 50Barbiturates 300Benzodiazepine 300Methadone 300[facility] CenterUrine Kwczdecbelhx5612-25-22 18:41:00* Test Item Value Reference Range Interpretation Comments Urine Urobilinogen (test code = 51856-1) 0.2 0.2-1 [facility] CenterU[facility] Phfrsqjmh8161-81-38 18:41:00* Test Item Value Reference Range Interpretation Comments Urine Bilirubin (test code = 1978-6) NEGATIVE NEGATIVE [facility] CenterUrine Wrehi3884-51-78 18:41:00* Test Item Value Reference Range Interpretation Comments Urine Blood (test code = 81651-0) NEGATIVE NEGATIVE [facility]odium Nsqcl2329-06-31 18:39:00* Test Item Value Reference Range Interpretation Comments Sodium Level (test code = 2951-2) 137 136-145 [facility] CenterPotassium Tzwdm3366-79-67 18:39:00* Test Item Value Reference Range Interpretation Comments Potassium Level (test code = 2823-3) 3.4 3.5-5.1 L [facility] CenterChloride Stdbs1709-49-03 18:39:00* Test Item Value Reference Range Interpretation Comments Chloride Level (test code = 2075-0) 102 98-107 [facility] CenterCarbon Dioxide Rkbyp9473-44-09 18:39:00* Test Item Value Reference Range Interpretation Comments Carbon Dioxide Level (test code = 2028-9) 24 22-29 [facility] CenterAnion Qrr3899-59-11 18:39:00* Test Item Value Reference Range Interpretation Comments Anion Gap (test code = 70570-0) 14.4 8-16 [facility] CenterBlood Urea Bxyxiwcx2631-08-60 18:39:00* Test Item Value Reference Range Interpretation Comments Blood Urea Nitrogen (test code = 3094-0) 11 7-26 [facility] CenterCreatinine2019-12-09 18:39:00* Test Item Value Reference Range Interpretation Comments Creatinine (test code = 2160-0) 0.71 0.57-1.11 [facility] CenterBUN/Creatinine Jkzpi5939-50-06 18:39:00* Test Item Value Reference Range Interpretation Comments BUN/Creatinine Ratio (test code = 3097-3) 15 6-25 [facility] CenterEstimat Glomerular Filtration Rate 2019-06-22 18:39:00* Test Item Value Reference Range Interpretation Comments Estimat Glomerular Filtration Rate (test code = 691011489) > 60 >60 Ranges were taken from the National Kidney Disease Education Program and the [facility] literature.Reference ranges:60 or greater: Eulfam26-16 ( for 3 consecutive months): Chronic kidney disease 15 or less: Kidney failurePalestine Regional Medical CenterGlucose Yppuw7553-97-00 18:39:00* Test Item Value Reference Range Interpretation Comments Glucose Level (test code = JQI2147) 103 74-118 [facility] CenterCalcium Nbhrc5102-50-14 18:39:00* Test Item Value Reference Range Interpretation Comments Calcium Level (test code = 96391-2) 9.8 8.4-10.2 [facility] CenterTotal Kbztlixqg6470-26-64 18:39:00* Test Item Value Reference Range Interpretation Comments Total Bilirubin (test code = 1975-2) 0.4 0.2-1.2 [facility] CenterAspartate Amino Transf (AST/SGOT) 2019-06-22 18:39:00* Test Item Value Reference Range Interpretation Comments Aspartate Amino Transf (AST/SGOT) (test code = Aspartate Amino Transf (AST/SGOT)) 23 5-34 [facility] CenterAlanine Aminotransferase (ALT/SGPT) 2019-06-22 18:39:00* Test Item Value Reference Range Interpretation Comments Alanine Aminotransferase (ALT/SGPT) (test code = 1742-6) 50 0-55 [facility] CenterTotal Vhxhtjm2667-92-47 18:39:00* Test Item Value Reference Range Interpretation Comments Total Protein (test code = 2885-2) 7.3 6.5-8.1 [facility] CenterAlbumin2019-12-09 18:39:00* Test Item Value Reference Range Interpretation Comments Albumin (test code = 1751-7) 4.1 3.5-5.0 [facility] CenterGlobulin2019-12-09 18:39:00* Test Item Value Reference Range Interpretation Comments Globulin (test code = 32669-7) 3.2 2.3-3.5 [facility] CenterAlbumin/Globulin Zyohc9367-66-88 18:39:00 * Test Item Value Reference Range Interpretation Comments Albumin/Globulin Ratio (test code = 1759-0) 1.3 0.8-2.0 [facility] CenterAlkaline Vhrpdnqudwu0067-31-68 18:39:00* Test Item Value Reference Range Interpretation Comments Alkaline Phosphatase (test code = 6768-6) 115 40-150 [facility] CenterCreatine Zozgsj9930-03-36 18:39:00* Test Item Value Reference Range Interpretation Comments Creatine Kinase (test code = 2157-6) 85 29-168 [facility] CenterCreatine Kinase PP7151-88-14 18:39:00* Test Item Value Reference Range Interpretation Comments Creatine Kinase MB (test code = 37495-9) 0.90 0-5.0 [facility] CenterTroponin D0191-19-07 18:39:00* Test Item Value Reference Range Interpretation Comments Troponin I (test code = PMT9144) < 0.001 0-0.300 [facility] CenterCT BRAIN KS2063-40-23 18:25:00 [facility] [address] [place] [address] Patient Name: AVINASH STEWART MR #: [id number] : 1970 Age/Sex: 48/F Req #: [id number] Adm Physician: Ordered by: DANY STOKES MD Report #: [id number] Location: ER Room/Bed: Procedure: [id number] C T/CT BRAIN WO Exam Date: Exam Time: REPORT STATUS: Signed EXAMINATION: Head CT HISTORY: Alteration of consciousness, confusion, memory loss COMPARISON: No ne. TECHNIQUE: Multidetector axial images were obtained without contrast from the foramen magnum to the vertex . The images were reconstructed using brain a nd bone algorithms. Thin section brain images were reformatted into coronal a nd sagittal planes. Image quality: Motion/streaking artifact limits the eval uation of the skull base and posterior cranial fossa. Dose modulation, itera tive reconstruction, and/or weight based adjustment of the mA/kV was utilized to reduce the radiation dose to as low as reasonably achievable. FINDI NGS: Parenchyma: 1. No abnormal densities. 2. No mass or hemorr jean pierre. No CT evidence of acute territorial vascular insult. Extr a-axial spaces:No abnormal density. No extra-axial fluid collections Bra in volume: Normal for age. Ventricles: No hydrocephalus or displacement. Arteries: No density suggestive of thrombus. Dural sinuses: No abnormal density. Extra-axial spaces: No abnormal density. Incidentally noted tiny Foramen magnum: No mass, Chiari malformation, or basilar inva gination. Sella: No obvious mass. Paranasal/mastoid sinuses: Im aged portions unremarkable. Skull/Scalp: No lytic or blastic lesions. N o fractures. IMPRESSION: Normal head CT. Signed by: Dr. Judy layne M.D. on 06/22/2019 6:26 PM Dictated By: JUDY CALLE MD [facility]an [facility] y Signed By: JUDY CALLE MD on 06/22/191825 Transcribed By: KADY on 1825 COPY TO: DANY STOKES MD Prothrombin Hewy9203-40-06 18:18:00* Test Item Value Reference Range Interpretation Comments Prothrombin Time (test code = 5902-2) 11.9 11.9-14.5 [facility] CenterProthromb Time International Ratio 2019-06-22 18:18:00* Test Item Value Reference Range Interpretation Comments Prothromb Time International Ratio (test code = 6301-6) 0.83 Oral Anticoagulant Therapy INR Values:1. Low Intensity Therapy 1.5 - 2.02 . Moderate Intensity Therapy 2.0 - 3.03. High Intensity Therapy(1) 2.5 - 3. 54. High Intensity Therapy(2) 3.0 - 4.05. Panic Value INR > 5.0 [facility] CenterActivated Partial Thromboplast Time 2019-06-22 18:18:00* Test Item Value Reference Range Interpretation Comments Activated Partial Thromboplast Time (test code = 12753-5) 25.3 23.8-35.5 [facility] CenterWhite Blood Hhhhm3156-58-40 18:12:00* Test Item Value Reference Range Interpretation Comments White Blood Count (test code = 6690-2) 9.15 4.8-10.8 [facility] CenterRed Blood Kspcu3162-25-42 18:12:00* Test Item Value Reference Range Interpretation Comments Red Blood Count (test code = 789-8) 4.79 3.6-5.1 [facility] CenterHemoglobin2019-12-09 18:12:00* Test Item Value Reference Range Interpretation Comments Hemoglobin (test code = 29010-6) 14.0 12.0-16.0 [facility] CenterHematocrit2019-12-09 18:12:00* Test Item Value Reference Range Interpretation Comments Hematocrit (test code = 4544-3) 40.9 34.2-44.1 [facility] CenterMean Corpuscular Hqvzgw9070-71-91 18:12:00* Test Item Value Reference Range Interpretation Comments Mean Corpuscular Volume (test code = 787-2) 85.4 81-99 [facility] CenterMean Corpuscular Pyblzmiuer6277-17-73 18:12:00* Test Item Value Reference Range Interpretation Comments Mean Corpuscular Hemoglobin (test code = 785-6) 29.2 28-32 [facility] CenterMean Corpuscular Hemoglobin Concent 2019-06-22 18:12:00* Test Item Value Reference Range Interpretation Comments Mean Corpuscular Hemoglobin Concent (test code = 786-4) 34.2 31-35 [facility] CenterRed Cell Distribution Fapkn9573-68-91 18:12:00* Test Item Value Reference Range Interpretation Comments Red Cell Distribution Width (test code = 64695-2) 13.4 11.7 -14.4 [facility] CenterPlatelet Gwxsx8548-86-18 18:12:00* Test Item Value Reference Range Interpretation Comments Platelet Count (test code = 777-3) 303 140-360 [facility] CenterNeutrophils (%) (Auto)2019-06-22 18:12:00 * Test Item Value Reference Range Interpretation Comments Neutrophils (%) (Auto) (test code = 27609-1) 62.5 38.7-80.0 [facility] CenterLymphocytes (%) (Auto)2019-06-22 18:12:00 * Test Item Value Reference Range Interpretation Comments Lymphocytes (%) (Auto) (test code = 736-9) 26.1 18.0-39.1 [facility] CenterMonocytes (%) (Auto)2019-06-22 18:12:00* Test Item Value Reference Range Interpretation Comments Monocytes (%) (Auto) (test code = 5905-5) 4.8 4.4-11.3 [facility] CenterEosinophils (%) (Auto)2019-06-22 18:12:00 * Test Item Value Reference Range Interpretation Comments Eosinophils (%) (Auto) (test code = 713-8) 5.6 0.0-6.0 [facility] CenterBasophils (%) (Auto)2019-06-22 18:12:00* Test Item Value Reference Range Interpretation Comments Basophils (%) (Auto) (test code = 706-2) 0.7 0.0-1.0 [facility] CenterIM GRANULOCYTES %2019-06-22 18:12:00* Test Item Value Reference Range Interpretation Comments IM GRANULOCYTES % (test code = IM GRANULOCYTES %) 0.3 0.0- 1.0 [facility] CenterNeutrophils # (Auto)2019-06-22 18:12:00* Test Item Value Reference Range Interpretation Comments Neutrophils # (Auto) (test code = 751-8) 5.7 2.1-6.9 [facility] CenterLymphocytes # (Auto)2019-06-22 18:12:00* Test Item Value Reference Range Interpretation Comments Lymphocytes # (Auto) (test code = 07899-5) 2.4 1.0-3.2 [facility] CenterMonocytes # (Auto)2019-06-22 18:12:00* Test Item Value Reference Range Interpretation Comments Monocytes # (Auto) (test code = 742-7) 0.4 0.2-0.8 [facility] CenterEosinophils # (Auto)2019-06-22 18:12:00* Test Item Value Reference Range Interpretation Comments Eosinophils # (Auto) (test code = 711-2) 0.5 0.0-0.4 H [facility] CenterBasophils # (Auto)2019-06-22 18:12:00* Test Item Value Reference Range Interpretation Comments Basophils # (Auto) (test code = 704-7) 0.1 0.0-0.1 [facility] CenterAbsolute Immature Granulocyte (auto 2019-06-22 18:12:00* Test Item Value Reference Range Interpretation Comments Absolute Immature Granulocyte (auto (chu t code = Absolute Immature Granulocyte (auto) 0.03 0-0.1 [facility] CenterCHEM LHLNL7502-37-56 12:35:0098[facility]annCHEM OMONJ8366-21-76 12:35:008.5[facility] HermannCHEM UVOXG4782-25-27 12:35:44725Uzufiumx HermannCHEM GEUNO8601-70-18 12:35:0028[facility]annCHEM ODSMA0371-55-28 12:35:000.73[facility] HermannCHEM FOBGD5004-00-64 12:35:0011 [facility] HermannCHEM OLIPH2836-05-78 12:35:0096[facility] HermannCHEM PANEL 2018-01-30 12:35:84909Ojrjpqtl HermannCHEM VXTCB2140-25-74 12:35:003.9[facility] HermannCHEM ZXCAR5632-17-73 12:35:0014.9[facility] LldpeztRSRQBCVFLP4606-48-36 12:35:0010.0[facility] IvogpuxRFRJFQMUBL7505-87-83 12:35:69012Etbihydh Boy YMLOMGGKKQ6105-28-71 12:35:0013.8[facility] IxfwkkcNDUHODLRCX0705-23-20 12:35:00 12.1[facility] BaniynjUTEAANCIWZ0604-91-16 12:35:004.18[facility] HermannHEMATOLOGY 2018-01-30 12:35:0013.1[facility] PxgbahvLXKGDPOXPU9100-33-29 12:35:0033.5[facility] RyhupynYINOWCCTUL2346-89-40 12:35:00* Test Item Value Reference Range Interpretation Comments MCH (test code = MCH) 29.0 pg 27.0-31.0 [facility] WvdqlmaAFJJBTDJBM8542-48-81 12:35:0086.7[facility] HermannHEMATOLOGY 2018-01-30 12:35:0036.2[facility] FgmsorlKHUMDEVAHJ4872-89-58 12:35:000.7[facility] InaoljmOGVAJXVLAK6895-53-16 12:35:000.2[facility] JfdvanuQGGILHPYCC0168-96-75 12:35:000.2[facility] SdhsexhZTIBYRMMIW0012-60-34 12:35:002.1[facility] TDSUKXNFHO5488-62-88 12:35:0010.2[facility] BukobkjOLHVVVPHXY7786-12-81 12:35:00 77.7[facility] XkwogtwKIEBOTMJRN4086-29-78 12:35:005.6[facility]annHEMATOLOGY 2018-01-30 12:35:0016.3[facility] XhdtwivYFFXKAEVBDGQ2599-82-09 15:55:0012.7 [facility] AhhbdtjLQKUTQOWGNTO4016-01-47 15:55:00* Test Item Value Reference Range Interpretation Comments A/G Ratio (test code = A/G Ratio) 1.1 1 0.7-1.6 [facility] HqbfxojVEWASUZJYKOK3045-26-19 15:55:003.1[facility] HermannELECTROLYTES 2018-01-27 15:55:00* Test Item Value Reference Range Interpretation Comments B/C Ratio (test code = B/C Ratio) 14 1 6-25 [facility] CilgztiNHNAJEFFOEYU0858-02-68 15:55:45972Qpepsvpx HermannELECTROLYTES 2018-01-27 15:55:0010[facility] UedqppyVNMWBMFQGXSS5629-76-71 15:55:003.7[facility] KadyflhCITBWVRPVPEV3766-14-75 15:55:21483Onqebufr EvxfavpWHXQKCQIXUHI1287-38-26 15:55:008.8[facility] KjguqtmMEHYQTUECNFY2933-83-40 15:55:0027[facility] YKQXJMNCZJKL7753-50-36 15:55:28548Eogkgmfw GbatwywGSJSFCJJKAHS2185-09-21 15:55:000.69[facility] TxkldsyLZENUCJWWIJT3545-75-99 15:55:000.7[facility] Boy AOAWBEASNSGV7003-74-85 15:55:0088[facility] XeghjzdJTHTMRDOHGTX8728-85-79 15:55:00 27[facility] ZzvrchpZYWNTDCCFNDK8208-97-90 15:55:0052[facility] HermannELECTROLYTES 2018-01-27 15:55:77184Hdrcjvzb UctjltbEUBXHUUTRHLC8360-01-41 15:55:006.6[facility] UcnqsciNYPCUCDJPWJI4345-50-43 15:55:003.5[facility] EzvzrfnCOCLRRLEQWQCZ5536-72-64 15:55:00Negative *NA*(01/27/18 10:55 AM)[facility] PnnaxwzZPEPMRVKVW5832-01-91 15:55:0012.8[facility] PhmolqxCFBRTGVLJO2109-65-26 15:55:0014.1[facility] Boy VEEBTBJKTM1078-19-49 15:55:007.5[facility] QsaemagEODAUECJJR0029-77-41 15:55:00 38.2[facility] CjgcuutUXUATLDVBK1855-68-34 15:55:0086.0[facility] HermannHEMATOLOGY 2018-01-27 15:55:62573Agrkkzbm RrkxeubRUDIDCYIJJ1056-21-76 15:55:0010.3[facility] SvkutxoIMSDATAWFC6172-66-60 15:55:0033.6[facility] KackxqqAFGEKPWIQH9597-22-35 15:55:00* Test Item Value Reference Range Interpretation Comments MCH (test code = MCH) 28.9 pg 27.0-31.0 [facility] GusvtutWPJYARLKXN9805-68-15 15:55:004.44[facility] HermannHEMATOLOGY 2018-01-27 15:55:000.3[facility] LwmtcceZCXLNPQEFS8578-30-93 15:55:000.1[facility] MikbbevUZDVVDBRCK5098-03-89 15:55:002.2[facility] DdwajhiZTYTGOVSLT5538-36-39 15:55:000.5[facility] GowwworXAKHSQHARK2277-42-17 15:55:0029.5[facility] ARFBBIYCOI1771-82-42 15:55:0059.2[facility] WlrhlzfQAQINTOERE6556-61-10 15:55:00 6.1[facility] PnaecvzJFWODBSOGN7889-54-96 15:55:004.5[facility]annHEMATOLOGY 2018-01-27 15:55:004.4[facility] NnxbhkpMWLAZEVIAG3412-67-82 15:55:000.7[facility] HermannSPECIAL UWBVYXDJT1986-38-76 15:55:005.7[facility] HermannCARDIAC ENZYMES 2017-11-11 23:07:00<1.0[facility] HermannCARDIAC SMZNDVJ9568-46-93 23:07:00<0.02 [facility]annCARDIAC HWSPKKT7823-96-71 23:07:00<1.0[facility] HermannCARDIAC YANUDPJ3407-58-83 23:07:46032Usziyehd HermannCHEM PUKQN3386-61-65 23:07:31693 [facility]annCHEM HJSWK1183-46-78 23:07:003.6[facility]annCHEM PANEL 2017-11-11 23:07:00* Test Item Value Reference Range Interpretation Comments A/G Ratio (test code = A/G Ratio) 1.1 1 0.7-1.6 [facility] HermannCHEM MNQEU1478-23-51 23:07:38516Dkjrxzfr HermannCHEM PANEL 2017-11-11 23:07:49690Ibhqggyd HermannCHEM NYWFJ5217-10-68 23:07:003.7[facility] HermannCHEM DOBFO3184-94-63 23:07:000.60[facility] HermannCHEM BZTOT5363-25-24 23:07:0015[facility] HermannCHEM KJLFN8880-80-04 23:07:0090[facility] HermannCHEM BNTRR2996-87-42 23:07:003.9[facility] HermannCHEM ARPGM8125-88-46 23:07:0029 [facility] HermannCHEM BTNTN9544-39-11 23:07:009.6[facility] HermannCHEM PANEL 2017-11-11 23:07:0085[facility] HermannCHEM NUUGL8078-80-54 23:07:000.5[facility] HermannCHEM ESEWY4571-83-19 23:07:008.7[facility] HermannCHEM COQBV3473-16-08 23:07:007.5[facility] HermannCHEM PIVRR5045-29-06 23:07:0033[facility] HermannCHEM KIMFS7758-06-64 23:07:73991Hpwghncb HermannCHEM EDACI1060-24-99 23:07:00* Test Item Value Reference Range Interpretation Comments B/C Ratio (test code = B/C Ratio) 25 1 6-25 [facility] MhdnwalHYSCEDLKLGTWD3746-00-84 23:07:00Negative *NA*(11/11/17 6:07 PM) [facility] FzbirfkDGACMJDSHP1548-26-54 23:07:002.8[facility]MATOLOGY 2017-11-11 23:07:005.9[facility] BdcmxqeBBMCJUOIYE0650-96-08 23:07:000.6[facility] DmqonmnYIPQGPISDK7162-87-84 23:07:009.2[facility] KgcbzizBDIHQTRFNR6386-12-46 23:07:000.1[facility] VzlscvpIIGJQDBAEF9842-53-04 23:07:001.0[facility] PBXBYCYSBO5282-15-26 23:07:000.6[facility] VzqnozaCAURVJJHYD5100-09-97 23:07:005.8 [facility] RonawnzNKKPVHYMCF3229-67-57 23:07:0027.2[facility]annHEMATOLOGY 2017-11-11 23:07:0057.2[facility] KulovnzEKPJVUYOGP2664-82-56 23:07:009.2[facility] MsksvdjNHCRPFQMMW1659-16-80 23:07:38846Rklckhbc JipgbxrCVIGGCDCAB0599-90-58 23:07:0014.0[facility] JnjmdjuYWHONBAFWP0833-97-89 23:07:0033.7[facility] MWIMBSJAHV0045-74-56 23:07:00* Test Item Value Reference Range Interpretation Comments MCH (test code = MCH) 28.9 pg 27.0-31.0 [facility] JeachsuNRWKBGZXUM3834-10-82 23:07:0085.9[facility]annHEMATOLOGY 2017-11-11 23:07:0040.3[facility] CywxhrkUNRMUYXVOL3642-09-08 23:07:0013.6[facility] YedtwzlAJXDEIGBLH0573-57-43 23:07:004.69[facility] MvamqodBIAUSTPQDB4717-44-29 23:07:0010.4[facility]
--- OUTSIDE RECORDS SUMMARY | 2020-05-19 18:21 | XMS REPORT | Continuity of Care Document ---
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 Role Phone [employer] Unavailable Un available Problems Problem Status Onset Date Classification Date Reported Comments Source Intramural leiomyoma of uterus 02/11/2018 08/19/2018 [facility] UNK Active 0 01/09/2018 [facility] Occipital neuralgia 11/12/2017 11/22/2017 [facility] STROKE SYMPTOMS Active 11/11/2017 [facility] R31.0 - GROSS HEMATURIA Active 05/08/2016 BEN [place] Z12.31 - ENCNTR SCREEN MAMMOGRAM FOR MA Active 05/08/2016 OPIZaira [place] SCREENING Active 04/17/2016 [facility] 753.15 - RENAL DYSPLASIA Active 11/24/2013 TIMBOD [place] Essential (primary) hypertension 08/19/2018 [facility] Subserosal leiomyoma of uterus 08/19/2018 [facility] Other noninflammatory disorders of ovary , fallopian tube and broad ligament 08/19/2018 [facility] Excessive and frequent menstruation with regular cycle 08/19/2018 [facility] Unspecified dyspareunia 08/19/2018 [facility] Pelvic and perineal pain 08/19/2018 [facility] Major depressive disorder, single episode, unspecified 08/19/2018 [facility] Obesity, unspecified 08/19/2018 [facility] Body mass index (BMI) 33.0-33.9, adult 08/19/2018 [facility] Tubal ligation status 08/19/2018 [facility] Constipation, unspecified 08/19/2018 [facility] Hypertensive disorder, systemic arterial (disorder) Active Problem 02/04/2020 [facility] Mixed anxiety and depressive disorder (disorder) Active Problem 02/04/2020 [facility] Uterine leiomyoma (disorder) A ctive Problem [facility] Encounter for screening mammogram for ma lignant neoplasm of breast 01/20/2020 [facility] Medications Medication Details Route Status Patient Instructions Ordering Provider Order Date Source ibuprofen 600 mg oral tablet 6 00 mg, PO, Q6H, PRN Pain Score 1-3, # 30 tab, 0 Refill(s) No Longer Active 01/30/2018 [facility] tramadol hydrochloride 50 MG Oral Tablet 50 mg, PO, Q6H, PRN Pain Score 1-3, 0 Refill(s) Active 01/30/2018 [facility] Docusate Sodium 100 MG Oral Tablet [DOK] 100 mg = 1 tab, PO, BID, # 60 tab, 0 Refill(s) Active 01/30/2018 [facility] tramadol hydrochloride 50 MG Oral Tablet Notes: Not to exceed 400mg/day. (Same As: Ultram) Inactive 01/30/2018 [facility] Ibuprofen Notes: (Same as: Adv il) Give with food. Inactive 01/30/2018 [facility] ketOROLAC 30 mg/mL injectable solution 4 days MEDICATION WASTE Product Size: 30 mg Product Wasted: ___ mg No Longer Active 01/29/2018 [facility] Zofran Notes: (Same as: Zofran ) PROTECT FROM LIGHT No Longer Active 01/29/2018 [facility] Acetaminophen 325 MG / Hydrocodone Sushila trate 5 MG Oral Tablet [[place] 5/325] Notes: (Same as: [place] 325/5) Do not ex ceed 4gm/day of acetaminophen. No Longer Activ e 01/29/2018 [facility] Zofran Notes: (Same as: Zofran) No Longer Active 01/29/2018 [facility] Morphine Notes: (Same as:MORPh ine Sulfate) No Longer Active 01/29/2018 [facility] 72 HR Scopolamine 0.0139 MG/HR Transdermal Patch 1 patch, Route: TOP, Drug Form: ERFILM, Dosing Weight 65, kg, ONCE, Apply behind ear. Avoid use in elderly., Start date: 01/29/18 10:11:00 CDT, Stop date: 01/29/18 10:11:00 CDT Inactive 01/29/2018 [facility] Meperidine 12.5 mg, Route: IVP , Q30Min, Dosing Weight 65, kg, PRN Other -See Comment, For shivering, Start date: 01/29/18 10:11:00 CDT, Duration: 2 doses or times, Stop date: Limited # of times Inactive 01/29/2018 [facility] Diphenhydramine 12.5 mg, Route : IVP, Drug form: INJ, Q6H, Dosing Weight 65, kg, PRN Itching, Start date: 01/29/18 10:11:00 CDT, Duration: 30 day, Stop date: 02/28/18 10:10:00 CDT Inactive 01/29/2018 [facility] Promethazine 6.25 mg, Route: I VPB, ONCE, Dosing Weight 65, kg, PRN Nausea & Vomiting, Start date: 01/29/18 10:11:00 CDT Inactive 01/29/2018 [facility] Ondansetron 4 mg, Route: IVP, ONCE, Dosing Weight 65, kg, PRN Nausea & Vomiting, Start date: 01/29/18 10:11:00 CDT Inactive 01/29/2018 [facility] Naloxone 0.4 mg, Route: IVP, Q 2MIN, Dosing Weight 65, kg, PRN Narcotic Reversal, Start date: 01/29/18 10:11:00 CDT, Duration: 8 doses or times, Stop date: Limited # of times Inactive 01/29/2018 [facility] Flumazenil 0.2 mg, Route: IVP, PRN, Dosing Weight 65, kg, PRN Benzodiazepine Reversal, Initial dose, Start date: 01/29/18 10:11:00 CDT, Duration: 30 day, Stop date: 02/28/18 10:10:00 CDT Inactive 01/29/2018 [facility] Fentanyl 50 microgram, Route: IVP, Q5Min, Dosing Weight 65, kg, PRN Pain Score 7-10, Priority: Routine, Start date: 01/29/18 10:11:00 CDT, Duration: 2 doses or times, Stop date: Limited # of times Inactive 01/29/2018 [facility] Hydromorphone 0.5 mg, Route: I COMMISSIONS MANAGER, Q5Min, Dosing Weight 65, kg, PRN Pain Score 7-10, Start date: 01/29/18 10:11:00 CDT, Duration: 4 doses or times, Stop date: Limited # of times Inactive 01/29/2018 [facility] Oxycodone 10 mg, Route: PO, Dr mai form: TAB, Q4H, Dosing Weight 65, kg, PRN Pain Score 7-10, Start date: 01/29/18 10:11:00 CDT, Duration: 30 day, Stop date: 02/28/18 10:10:00 CDT Inactive 01/29/2018 [facility] Morphine 2 mg, Route: IVP, Q5M in, Dosing Weight 65, kg, PRN Pain Score 4-6, Start date: 01/29/18 10:11:00 CDT, Duration: 5 doses or times, Stop date: Limited # of times Inactive 01/29/2018 [facility] Calcium Chloride 0.0014 MEQ/ML / Potassi um Chloride 0.004 MEQ/ML / Sodium Chloride 0.103 MEQ/ML / Sodium Lactate 0.028 MEQ/ML Injectable Solution 1,000 mL, Rate: 125 ml/hr, Infuse over: 8 hr, Route: IV, Dosing Weight 65 kg, Total Volume: 1,000, Start date: 01/29/18 10:11:00 CDT, Duration: 30 day, Stop date: 02/28/18 10:10:00 CDT, 1.62, m2 Inactive 01/29/2018 [facility] Acetaminophen 1,000 mg, Route: IVPB, Drug form: INJ, ONCE, Dosing Weight 65, kg, PRN Pain Score 1-3, Start date: 01/29/18 10:11:00 CDT Inactive 01/29/2018 [facility] Ketorolac 30 mg, Route: IVP, O NCE, Dosing Weight 65, kg, Start date: 01/29/18 10:11:00 CDT, Stop date: 01/29/18 10:11:00 CDT Inactive 01/29/2018 [facility] glycopyrrolate (ANES) Route: I V, Drug form: INJ, ONCE, Stop date: 01/29/18 9:59:00 CDT Inactive 01/29/2018 [facility] neostigmine (ANES) Route: IV, Drug form: INJ, ONCE, Stop date: 01/29/18 9:59:00 CDT Inactive 01/29/2018 [facility] Naloxone Notes: Same as Narcan Inactive 01/29/2018 [facility] Morphine Notes: Dose: Delay: Basal rate: 4hr limit: (Same as:iBta-Jeannette) Inactive 01/29/2018 [facility] Calcium Chloride 0.0014 MEQ/ML / Potassi um Chloride 0.004 MEQ/ML / Sodium Chloride 0.103 MEQ/ML / Sodium Lactate 0.028 MEQ/ML Injectable Solution 1,000 mL, Rate: 125 ml/hr, Infuse over: 8 hr, Route: IV, Dosing Weight 65 kg, Total Volume: 1,000, Start date: 01/29/18 9:50:00 CDT, Duration: 30 day, Stop date: 02/28/18 9:49:00 CDT, 1.62, m2 No Longer Active 01/29/2018 [facility] albuterol (ANES) Route: ENDOTR ACHEAL, Drug form: AERO/A, ONCE, Stop date: 01/29/18 9:40:00 CDT Inactive 01/29/2018 [facility] ePHEDrine (ANES) Route: IV, Dr ug form: INJ, ONCE, Stop date: 01/29/18 9:30:00 CDT Inactive 01/29/2018 [facility] lidocaine (ANES) Route: IV, Dr ug form: INJ, ONCE, Stop date: 01/29/18 8:40:00 CDT Inactive 01/29/2018 [facility] propofol (ANES) Route: IV, Dieter g form: INJ, ONCE, Stop date: 01/29/18 8:40:00 CDT Inactive 01/29/2018 [facility] fentaNYL (ANES) Route: IV, Dieter g form: INJ, ONCE, Stop date: 01/29/18 8:40:00 CDT Inactive 01/29/2018 [facility] rocuronium (ANES) Route: IV, D rug form: INJ, ONCE, Stop date: 01/29/18 8:40:00 CDT Inactive 01/29/2018 [facility] metoclopramide (ANES) Route: I V, Drug form: INJ, ONCE, Stop date: 01/29/18 8:40:00 CDT Inactive 01/29/2018 [facility] dexamethasone (ANES) Route: IV , Drug form: INJ, ONCE, Stop date: 01/29/18 8:35:00 CDT Inactive 01/29/2018 [facility] midazolam (ANES) Route: IV, Dr ug form: SOLN, ONCE, Stop date: 01/29/18 8:35:00 CDT Inactive 01/29/2018 [facility] famotidine (ANES) Route: IV, D rug form: INJ, ONCE, Stop date: 01/29/18 8:35:00 CDT Inactive 01/29/2018 [facility] acetaminophen (ANES) 10 mg Rou te: IV, Drug form: INJ, Start date: 01/29/18 8:25:00 CDT, Stop date: 01/29/18 9:25:00 CDT Inactive 01/29/2018 [facility] gentamicin (ANES) 40 mg Route: IV, Drug form: INJ, Start date: 01/29/18 7:51:00 CDT, Stop date: 01/29/18 8:51:00 CDT Inactive 01/29/2018 [facility] Cleocin Phosphate (ANES) 900 mg Route: IV, Drug form: INJ, Start date: 01/29/18 7:51:00 CDT, Stop date: 01/29/18 8:51:00 CDT Inactive 01/29/2018 [facility] Lactated Ringers Injection IV (ANES) 1000 mL Route: IV, Total Volume: 1,000, Start date: 01/29/18 7:20:00 CDT, Stop date: 01/29/18 8:20:00 CDT Inactive 01/29/2018 [facility] Pyridium 200 mg, Route: PO, ON CE, Dosing Weight 65, kg, Start date: 01/29/18 6:12:00 CDT, Stop date: 01/29/18 6:12:00 CDT Inactive 01/29/2018 [facility] Calcium Chloride 0.0014 MEQ/ML / Potassi um Chloride 0.004 MEQ/ML / Sodium Chloride 0.103 MEQ/ML / Sodium Lactate 0.028 MEQ/ML Injectable Solution 1,000 mL, Rate: 25 ml/hr, Infuse over: 4 0 hr, Route: IV, Dosing Weight 65 kg, Total Volume: 1,000, Start date: 01/29/18 5:57:00 CDT, Duration: 30 day, Stop date: 02/28/18 5:56:00 CDT, 1.62, m2 Inactive 01/29/2018 [facility] Valsartan-HCTZ Valsartan-HCTZ, Refill(s) 0 Active 01/27/2018 [facility] Celexa PO, Daily, 0 Refill(s) Active 01/27/2018 [facility] Hydrochlorothiazide 25 MG / valsartan 16 0 MG Oral Tablet 1 tab, PO, Daily, 0 Refill(s) Inactive 01/27/2018 [facility] ketOROLAC 30 mg/mL injectable solution 30 mg, Route: IM, Drug form: INJ, ONCE, Dosing Weight 67.727, kg, Priority: STAT, Start date: 11/12/17 0:14:00 CDT, Stop date: 11/12/17 0:14:00 CDT Inactive 11/12/2017 [facility] ketOROLAC 30 mg/mL injectable solution 4 days MEDICATION WASTE Product Size: 30 mg Product Wasted: ___ mg Inactive 11/12/2017 [facility] Allergies, Adverse Reactions, Alerts Substance Category Reaction Severity Reaction type Status Date Reported Comments Source codeine Assertion Drug allergy Active [facility] [place] Assertion Drug allergy Active [facility] Floxin Assertion Drug allergy Active [facility] Immunizations No Data Provided for This [...] should be multiplied by the estimated BMI. [facility] CHEM PANEL Calcium Lvl 8.5 8.5 - 10.5 01/30/2018 [facility] CHEM PANEL Sodium Lvl 145 135 - 145 01/30/2018 [facility] CHEM PANEL CO2 28 24 - 32 01/30/2018 [facility] CHEM PANEL Creatinine Lvl 0.73 0.50 - 1.40 01/30/2018 [facility] CHEM PANEL BUN 11 7 - 22 01/30/2018 [facility] CHEM PANEL Glucose Lvl 96 70 - 99 01/30/2018 [facility] CHEM PANEL Chloride Lvl 106 95 - 109 01/30/2018 [facility] CHEM PANEL Potassium Lvl 3.9 3.5 - 5.1 01/30/2018 [facility] CHEM PANEL AGAP 14.9 10.0 - 20.0 01/30/2018 [facility] HEMATOLOGY MPV 10.0 7.4 - 10.4 01/30/2018 [facility] HEMATOLOGY Platelet 233 133 - 450 01/30/2018 [facility] HEMATOLOGY RDW 13.8 11.5 - 14.5 01/30/2018 [facility] HEMATOLOGY Hgb 12.1 12.0 - 16.0 01/30/2018 [facility] HEMATOLOGY RBC 4.18 4.20 - 5.40 01/30/2018 [facility] HEMATOLOGY WBC 13.1 3.7 - 10.4 01/30/2018 [facility] MCHC 33.5 32.0 - 36.0 01/30/2018 [facility] MCH 29.0 27.0 - 31.0 01/30/2018 [facility] HEMATOLOGY MCV 86.7 80.0 - 98.0 01/30/2018 [facility] HEMATOLOGY Hct 36.2 36.0 - 48.0 01/30/2018 [facility] HEMATOLOGY Monocytes # 0.7 0.0 - 0.8 01/30/2018 [facility] HEMATOLOGY Basophils 0.2 0.0 - 1.0 01/30/2018 [facility] HEMATOLOGY Eosinophils 0.2 0.0 - 4.0 01/30/2018 [facility] HEMATOLOGY Lymphocytes # 2.1 1.0 - 5.5 01/30/2018 [facility] HEMATOLOGY Neutrophils # 10.2 1.5 - 8.1 01/30/2018 [facility] HEMATOLOGY Segs 77.7 45.0 - 75.0 01/30/2018 [facility] HEMATOLOGY Monocytes 5.6 2.0 - 12.0 01/30/2018 [facility] HEMATOLOGY Lymphocytes 16.3 20.0 - 40.0 01/30/2018 [facility] ELECTROLYTES AGAP 12.7 10.0 - 20.0 01/27/2018 [facility] ELECTROLYTES A/G Ratio 1.1 0.7 - 1.6 01/27/2018 [facility] ELECTROLYTES Globulin 3.1 2.7 - 4.2 01/27/2018 [facility] ELECTROLYTES B/C Ratio 14 6 - 25 01/27/2018 [facility] ELECTROLYTES eGFR 104 01/27/2018 Result Comment: [...] should be multiplied by the estimated BMI. [facility] ELECTROLYTES BUN 10 7 - 22 01/27/2018 [facility] ELECTROLYTES Potassium Lvl 3.7 3.5 - 5.1 01/27/2018 [facility] ELECTROLYTES Sodium Lvl 146 135 - 145 01/27/2018 [facility] ELECTROLYTES Calcium Lvl 8.8 8.5 - 10.5 01/27/2018 [facility] ELECTROLYTES CO2 27 24 - 32 01/27/2018 [facility] ELECTROLYTES Glucose Lvl 123 70 - 99 01/27/2018 [facility] ELECTROLYTES Creatinine Lvl 0.6 9 0.50 - 1.40 01/27/2018 [facility] ELECTROLYTES Bili Total 0.7 0.2 - 1.3 01/27/2018 [facility] ELECTROLYTES Alk Phos 88 39 - 136 01/27/2018 [facility] ELECTROLYTES AST 27 0 - 37 01/27/2018 [facility] ELECTROLYTES ALT 52 0 - 65 01/27/2018 [facility] ELECTROLYTES Chloride Lvl 110 95 - 109 01/27/2018 [facility] ELECTROLYTES Total Protein 6.6 6.4 - 8.4 01/27/2018 [facility] ELECTROLYTES Albumin Lvl 3.5 3.5 - 5.0 01/27/2018 [facility] ENDOCRINOLOGY S Preg Ne gative *NA* (01/27/18 10:55 AM) Negative 01/27/2018 [facility] HEMATOLOGY Hgb 12.8 12.0 - 16.0 01/27/2018 [facility] HEMATOLOGY RDW 14.1 11.5 - 14.5 01/27/2018 [facility] HEMATOLOGY WBC 7.5 3.7 - 10.4 01/27/2018 [facility] HEMATOLOGY Hct 38.2 36.0 - 48.0 01/27/2018 [facility] HEMATOLOGY MCV 86.0 80.0 - 98.0 01/27/2018 [facility] HEMATOLOGY Platelet 228 133 - 450 01/27/2018 [facility] MPV 10.3 7.4 - 10.4 01/27/2018 [facility] MCHC 33.6 32.0 - 36.0 01/27/2018 [facility] MCH 28.9 27.0 - 31.0 01/27/2018 [facility] HEMATOLOGY RBC 4.44 4.20 - 5.40 01/27/2018 [facility] HEMATOLOGY Monocytes # 0.3 0.0 - 0.8 01/27/2018 [facility] HEMATOLOGY Basophils # 0.1 0.0 - 0.2 01/27/2018 [facility] HEMATOLOGY Lymphocytes # 2.2 1.0 - 5.5 01/27/2018 [facility] HEMATOLOGY Eosinophils # 0.5 0.0 - 0.5 01/27/2018 [facility] Lymphocytes 29.5 20.0 - 40.0 01/27/2018 [facility] Segs 59.2 45.0 - 75.0 01/27/2018 [facility] HEMATOLOGY Eosinophils 6.1 0.0 - 4.0 01/27/2018 [facility] Monocytes 4.5 2.0 - 12.0 01/27/2018 [facility] Neutrophils # 4.4 1.5 - 8.1 01/27/2018 [facility] HEMATOLOGY Basophils 0.7 0.0 - 1.0 01/27/2018 [facility] SPECIAL CHEMISTRY Hgb A1C 5.7 <=5.6 % 01/27/2018 [facility] CARDIAC ENZYMES CK MB Index <1.0 0.0 - 2.5 11/11/2017 [facility] CARDIAC ENZYMES Troponin-I <0.02 0.00 - 0.40 11/11/2017 [facility] CARDIAC ENZYMES CK MB <1.0 0.5 - 3.6 11/11/2017 [facility] CARDIAC ENZYMES Total CK 102 12 - 191 11/11/2017 [facility] CHEM PANEL eGFR 109 11/11/2017 Result [...] PANEL Globulin 3.6 2.7 - 4.2 11/11/2017 [facility] CHEM PANEL A/G Ratio 1.1 0.7 - 1.6 11/11/2017 [facility] CHEM PANEL Chloride Lvl 105 95 - 109 11/11/2017 [facility] CHEM PANEL Sodium Lvl 139 135 - 145 11/11/2017 [facility] CHEM PANEL Potassium Lvl 3.7 3.5 - 5.1 11/11/2017 [facility] CHEM PANEL Creatinine Lvl 0.60 0.50 - 1.40 11/11/2017 [facility] CHEM PANEL BUN 15 7 - 22 11/11/2017 [facility] CHEM PANEL Glucose Lvl 90 70 - 99 11/11/2017 [facility] CHEM PANEL Albumin Lvl 3.9 3.5 - 5.0 11/11/2017 [facility] CHEM PANEL CO2 29 24 - 32 11/11/2017 [facility] CHEM PANEL Calcium Lvl 9.6 8.5 - 10.5 11/11/2017 [facility] CHEM PANEL ALT 85 0 - 65 11/11/2017 [facility] CHEM PANEL Bili Total 0.5 0.2 - 1.3 11/11/2017 [facility] CHEM PANEL AGAP 8.7 10.0 - 20.0 11/11/2017 [facility] CHEM PANEL Total Protein 7.5 6.4 - 8.4 11/11/2017 [facility] CHEM PANEL AST 33 0 - 37 11/11/2017 [facility] CHEM PANEL Alk Phos 129 39 - 136 11/11/2017 [facility] CHEM PANEL B/C Ratio 25 6 - 25 11/11/2017 [facility] ENDOCRINOLOGY S Preg Ne gative *NA* (11/11/17 6:07 PM) Negative 11/11/2017 [facility] HEMATOLOGY Lymphocytes # 2.8 1.0 - 5.5 11/11/2017 [facility] Segs-Bands # 5.9 1.5 - 8.1 11/11/2017 [facility] HEMATOLOGY Basophils 0.6 0.0 - 1.0 11/11/2017 [facility] HEMATOLOGY Eosinophils 9.2 0.0 - 4.0 11/11/2017 [facility] Basophils # 0.1 0.0 - 0.2 11/11/2017 [facility] Eosinophils # 1.0 0.0 - 0.5 11/11/2017 [facility] Monocytes # 0.6 0.0 - 0.8 11/11/2017 [facility] Monocytes 5.8 2.0 - 12.0 11/11/2017 [facility] Lymphocytes 27.2 20.0 - 40.0 11/11/2017 [facility] Segs 57.2 45.0 - 75.0 11/11/2017 [facility] MPV 9.2 7.4 - 10.4 11/11/2017 [facility] Platelet 264 133 - 450 11/11/2017 [facility] RDW 14.0 11.5 - 14.5 11/11/2017 [facility] MCHC 33.7 32.0 - 36.0 11/11/2017 [facility] MCH 28.9 27.0 - 31.0 11/11/2017 [facility] MCV 85.9 80.0 - 98.0 11/11/2017 [facility] Hct 40.3 36.0 - 48.0 11/11/2017 [facility] Hgb 13.6 12.0 - 16.0 11/11/2017 [facility] RBC 4.69 4.20 - 5.40 11/11/2017 [facility] WBC 10.4 3.7 - 10.4 11/11/2017 [facility] Pathology Reports No Data Provided for This Section Diagnostic Reports Report Value Date Source Breast Complete Ronald US COMPLETE ULTRASOUND OF BOTH BREASTS AND AXILLA: 02/02/2020 CLINICAL: R92.8 Other Abnormal And Inconclusive Findings On Diagnostic Imaging Of Breast/R92.8 Other Abnormal And Inconclusive Findings On Diagnostic Imaging Of Breast. COMPARISON:Comparison is made to exams dated: 02/02/2020 mammogram - [facility], 01/18/2020 mammogram, and 06/04/2016 mammogram - [facility]. TECHNIQUE: Color flow and real-time ultrasound of [...] is recommended.(02/02/2021) This exam was interpreted at [id number] for [facility]. Bentley Howard M.D. ap/:02/02/2020 15:06:51 [employer] Helper(s): Latricia Cao, [facility] letter sent: BI-RADS 1/2 Ultrasound BI-RADS: 2 Benign 02/02/2020 [facility] Breast Mammo Diag RONALD w az incl CAD MA BILATERAL DIGITAL DIAGNOSTIC MAMMOGRAM 3D/2D WITH CAD: 02/02/2020 CLINICAL: R92.8 Other Abnormal And Inconclusive Findings On Diagnostic Imaging Of Breast/R92.8 Other Abnormal And Inconclusive Findings On Diagnostic Imaging Of Breast. Current study was evaluated with a Computer Aided Detection (CAD) system. COMPARISON:Comparison is made to exams dated: 01/18/2020 mammogram and 06/04/2016 mammogram - [facility]. TECHNIQUE: Digital Breast Tomosynthesis was performed and [...] is recommended. This exam was interpreted at [id number] for [facility]. SUMMARY: Bilateral breast ultrasound will be performed at this time; please see separate report. Bentley Hwoard M.D. ap/penrad:02/02/2020 15:04:41 [employer] Helper(s): RT Malini (R)(M), [facility] Mammogram BI-RADS: 0 Indeterminate 02/02/2020 [facility] Breast Mammo Scrn RONALD w az incl CAD MA BILATERAL DIGITAL SCREENING MAMMOGRAM 3D/2D WITH CAD: 01/18/2020 CLINICAL: /Screening. Current study was evaluated with a Computer Aided Detection (CAD) system. COMPARISON:Comparison is made to exam dated: 06/04/2016 mammogram - [facility]. TECHNIQUE: Digital Breast Tomosynthesis was performed and [...] are recommended. This exam was interpreted at [id number] for [facility] [place], [place] 15. SUMMARY: The staff from [facility] will contact the patient for these additional studies, and a supplementary report will be issued. Jaz Carrillo M.D., ms/lisandra:01/18/2020 09:12:22 [employer] Helper(s): RT Davi(R)(M), [facility] letter sent: BI-RADS 0 Mammogram BI-RADS: 0 Indeterminate 01/18/2020 [facility] [place] Pelvis w Pelvis Transvaginal US EXAM: US [...] free fluid in the retrouterine cul-de-sac. 12/20/2017 [facility] contrast CT EXAM: CT BRAIN WITHOUT CONTRAST [...] No acute intracranial abnormality. SL: [id number] 11/11/2017 [facility] Chest 1view DX Clinical Indica tion: Chest pain on the right Comparison: 06/04/2016 FINDINGS: The frontal chest radiograph shows normal lung volumes without interstitial or airspace opacities, pleural effusions or pneumothorax. The cardiomediastinal contours are normal. The trachea is midline. There are no clinically significant osseous abnormalities noted. IMPRESSION: No chest radiographic evidence of acute cardiopulmonary disease. SL: [id number] 11/11/2017 [facility] Pelvis Complete US EXAM: Pelvi s [...] Diagnostic Imaging. Johnnie Alva M.D., cm/lisandra:06/19/2016 10:06:36 [employer] Helper: Deya FUENTES(Stacy)(Eliseo), [facility] This exam was dictated and interpreted by [id number] for LEILANI Davalos. letter sent: Normal exam [...] cyst. Bladder: 1. Unremarkable urinary bladder. 06/04/2016 [facility] Bladder US EXAM: Renal ultrasound. Urinary bladder [...] Bladder: 1. Unremarkable urinary bladder. 06/04/2016 [facility] [place] Chest 2 views DX EXAMINATION: Chest, 2 [...] Date Comments Source Respitory Rate 14 01/30/2018 [facility] Systolic (mm Hg) 134 01/30/2018 [facility] Diastolic (mm Hg) 79 01/30/2018 [facility] Respitory Rate 14 01/30/2018 [facility] Heart Rate 55 01/30/2018 [facility] Temperature Oral (F) 98.3 F 01/30/2018 [facility] Heart Rate 71 01/30/2018 [facility] Temperature Oral (F) 98.9 F 01/30/2018 [facility] Systolic (mm Hg) 116 01/30/2018 [facility] [facility] Diastolic (mm Hg) 70 01/30/2018 [facility] Respitory Rate 16 01/30/2018 [facility] Systolic (mm Hg) 127 01/29/2018 [facility] Diastolic (mm Hg) 77 01/29/2018 [facility] Temperature Oral (F) 98.0 F 01/29/2018 [facility] Heart Rate 69 01/29/2018 [facility] BMI Calculated 33.31 01/27/2018 [facility] Height 139.7 cm 01/27/2018 [facility] Weight 65 0 01/27/2018 [facility] Systolic (mm Hg) 147 11/12/2017 [facility] Diastolic (mm Hg) 71 11/12/2017 [facility] Respitory Rate 16 11/12/2017 [facility] Systolic (mm Hg) 151 11/12/2017 [facility] Diastolic (mm Hg) 78 11/12/2017 [facility] Respitory Rate 17 11/12/2017 [facility] Systolic (mm Hg) 182 11/12/2017 [facility] Diastolic (mm Hg) 82 11/12/2017 [facility] Respitory Rate 20 11/12/2017 [facility] Heart Rate 58 11/12/2017 [facility] Height 139.7 cm 11/11/2017 [facility] BMI Calculated 34.7 11/11/2017 [facility] Weight 67.727 11/11/2017 [facility] Heart Rate 63 11/11/2017 [facility] Temperature Oral (F) 98.4 F 11/11/2017 [facility] Encounters Location Location Details Encounter Type Encounter Number Reason For Visit Attending Provider ADM Date DC Date Status Source [facility] [place] [facility] [id number] Valerio Payton 06/04/2016 06/05/2016 OP[place] [facility] [place] [facility] [id number] Valerio Payton 08/02/2016 08/03/2016 [place] [facility] Emergency [id number] Conner Murcia 11/11/2017 11/12/2017 [facility] - [place] [facility] [id number] Kalyn Jae 12/20/2017 12/21/2017 [facility] Observation [id number] Kalyn Jae 01/29/2018 01/30/2018 [facility] [place] [facility] [id number] 06 Kalyn Jae 01/18/2020 01/19/2020 [place] [facility] [id number] Kalyn Jae 02/02/2020 02/03/2020 [facility] Procedure Code Date Perfomer Comments Source Cholecystectomy [id number] [facility] [place],[facility] Cystoscopy [id number] [facility] [place],[facility] Dilation and curettage [id number] [facility] [place],[facility] Excision of synovial cyst [id number] [facility] Tubal ligation [id number] [facility], [place],[facility] Assessment and Plan Assessment and Plan Date Source Extracted from:Title: POST OP DAY #1 Author: Kalyn Rowe MD Date: 01/30/18 Progress Note - Daily [facility] Completed: Jan, 13:23 by Kalyn Rowe MD RM: 429 - 1P, SE C4B AVINASH STEWART 47y (: 1970) F Attending: Kalyn Rowe MD Service: [employer] Service Reason for Admission: UNK Working DRG: [...] Fibroids 3. Pelvic Pain 4. Dyspareunia 5. Christianity PLAN and TREATMENT 1. Stable for d/c home later today DIAGNOSES and PROBLEMS Ready for Discharge (Yes/No)? 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 Alcohol Never, Previous treatment: None. Smoking Status Never smoker; Exposure to Tobacco Smoke None; Cigarette Smoking Last 365 Days No; Reg Smoking Cessation Counseling No entered on: 01/29/18 01/27/2018 [facility] Social History TypeResponse Alcohol Never, Previous [...] Cessation Counseling No entered on: 01/29/18 01/27/2018 [facility] Social History TypeResponse [...]
--- OUTSIDE RECORDS SUMMARY | 2020-05-19 18:21 | XMS REPORT | Continuity of Care Document ---
Author Author [facility] t Organization [facility] Address Count includes the [facility] [place] [address] Phone Unavailable Care Team Providers Care Dance Choreographer Name Role Phone PIPO JERNIGAN, JAMILA PCP Miri THOMPSON YICHING Attphys Unavailable JaeEufemia Kalyn Attphys Miri STOKES LAIRD Attphys Unavailable Murcia, Unruly Conner Attphys PaytonDutch cramer Valerio Attphys Miri THOMPSON YICHING Admphys Unavailable Payers Payer Name Policy Type Policy Number Effective Date Expiration Date Isidro Marx Pos [id number] 2011 00:00:00 TITA hernandez [employer] Problems Condition Name Condition Details Condition Category Status Onset Date Resolution Date Last Treatment Date Treating Clinician Comments Source UNK UNK Active 01/09/2018 [facility] Active 2018-01-09 00:00:00 2018-01-30 15:39:00 Eliseo Brunson STROKE SYMPTOMS STRO KE SYMPTOMS Active 11/11/2017 [facility] Active 2017-11-11 00:00:00 2017-11-11 18:51:00 Christina Brunson R31.0 - GROSS HEMATURIA R31. 0 - GROSS HEMATURIA Active 05/08/2016 [facility] [place] Diagnosis Active 2016-05-08 00:01:00 2016-06-04 08:42:00 Christina Brunson Z12.31 - ENCNTR SCREEN MAMMOGRAM FOR MA Z12.31 - ENCNTR SCREEN MAMMOGRAM FOR MA Active 05/08/2016 [facility] [place] Diagnosis Active 2016-05-08 00:01:00 2016-08-02 16[facility]17[facility] SCRE ENING Active 04/17/2016 [facility] Diagnosis Active 2016-04-17 00:00:00 2016-06-05 16:02:00 [facility] Cough Cough Disease Active 2015-12-30 00:00:[address] [facility] Right wrist pain Right wrist pain Disease Active 2015-12-26 00:00:[address] [facility] 753.15 - RENAL DYSPLASIA 753. 15 - RENAL DYSPLASIA Active 11/24/2013 [facility] [place] Diagnosis Active 2013-11-24 00:01:00 2014-03-06 20:59:00 [facility] Depression Depression Disease Active 2008-05-26 00:00:[address] [facility] Essential (primary) hypertension Essential (primary) hypertension 08/19/2018 [facility] Problem 2018-08-19 12:58:01 [facility] Subserosal leiomyoma of uterus Subserosal leiomyoma of uterus 08/19/2018 [facility] Problem 2018-08-19 12:5 8:01 [facility] Other noninflammatory disorders of ovary, fallopian tu be and broad ligament Other noninflammatory disorders of ovary, fallopian tube and broad ligament 08/19/2018 [facility] Problem 5 12:58:01 [facility] Excessive and frequent menstruation with regular cycle Excessive and frequent menstruation with regular cycle 08/19/2018 [facility] Problem 2018-08-19 12:58:01 [facility] Unspecified dyspareunia Unsp ecified dyspareunia 08/19/2018 [facility] Problem 2018-08-19 12:58:01 [facility] Pelvic and perineal pain Pelv ic and perineal pain 08/19/2018 [facility] Problem 2018-08-19 12:58:01 [facility] Major depressive disorder, single episode, unspecified Major depressive disorder, single episode, unspecified 08/19/2018 [facility] Problem 2018-08-19 12:58:01 [facility] Obesity, unspecified Obes ity, unspecified 08/19/2018 [facility] Problem 2018-08-19 12:58:01 [facility] Body mass index (BMI) 33.0-33.9, adult Body [...] for malignant neoplasm of breast 01/20/2020 [facility] [place] Problem 2020-01-20 23:01:51 Christina Brunson Hypertensive disorder, systemic arterial (disorder) Hypertensive disorder, systemic arterial (disorder) Active Problem 02/04/2020 [facility]'s, BEN [facility] [place] Problem Active 2020-02-04 23:30:01 Christina Brunson Mixed anxiety and depressive disorder (disorder) Mixed anxiety and depressive disorder (disorder) Active Problem 02/04/2020 [facility] [place] Problem Active 2020-02-04 23:30:01 Christina Brunson Uterine leiomyoma (disorder) U terine leiomyoma (disorder) Active Problem 02/04/2020 [facility] [place] [place] Problem Active 2020-02-04 23:30:01 [...] reactions to drug Active Rash 2008-04-19 00:00:[address] [facility] Codeine Propensity to adverse reactions to drug Active Other 2008-04-19 00:00:[address] [facility] Ofloxacin Propensity to adverse reactions to drug Active Rash 2008-04-19 00:00:[address] [facility] codeine codeine Active [facility] Claforan Claforan Active [facility] Floxin Floxin Active [facility] Family History Family Member Diagnosis Comments Start Date Stop Date Source Maternal grandmother [facility] Maternal grandmother Heart [facility] Maternal grandmother Hypertension [facility] Natural mother Hypertension [facility] ealt Social History Social Habit Start Date Stop Date Quantity Comments Source Sex Assigned At [facility] Social History 2018-01-27 15:26:36 2018-01-27 15:26:36 [facility] Alcohol intake 2016-02-02 00:00:00 2016-02-02 00:00:00 Current non-drinker of alcohol (finding) [facility] Smoking Status Start Date Stop Date Source Social History [facility] Medications Ordered Medication Name Filled Medication Name Start Date Stop Da te Current Medication? Ordering Clinician Indication Dosage Frequency Signature (SIG) Comments Components Source ibuprofen 600 mg oral tablet 2018-01-30 18:34:00 No 600 mg, PO, Q6H, PRN Pain Score 1-3, # 30 tab, 0 Refill(s) [facility] [place] tramadol hydrochloride 50 MG Oral Tablet 2018-01-30 18:34:00 Yes 50 mg, PO, Q6H, PRN Pain Score 1-3, 0 Refill(s) Christina [place] Docusate Sodium 100 MG Oral Tablet [DOK] 2018-01-30 18:34:00 Yes 100 mg = 1 tab, PO, BID, # 60 tab, 0 Refill(s) [facility] [place] [place] tramadol hydrochloride 50 MG Oral Tablet 2018-01-30 18:33:00 No Notes: Not to exceed 400mg/day. (Same As: Ultram) [facility] Ibuprofen 2018-01-30 18:33:00 No Notes: (Same as: Advil) Give with food. Christina Brunson ketOROLAC 30 mg/mL injectable solution 2018-01-29 23:00:00 No 4 days MEDICATION WASTE Product Size: 30 mg Product Wasted: ___ mg Christina Brunson Zofran 2018-01-29 21:00:00 No Notes: (Same as: Zofran) PROTECT FROM LIGHT Christina Brunson Acetaminophen 325 MG / Hydrocodone Bitartrate 5 MG Oral Tabl et [[place] 5/325] 2018-01-29 18:27:00 No Notes: (Same as: [place] 325/5) Do not exceed 4gm/day of acetaminophen. [facility] Zofran 2018-01-29 18:25:00 No Notes: (Same as: Zofran) [facility] Morphine 2018-01-29 18:23:00 No Not es: (Same as:MORPhine Sulfate) [facility] Boy 72 HR Scopolamine 0.0139 MG/HR Transdermal Patch 2018-01-29 15:1 1:00 No 1 patch, Route: TOP, Drug Fo rm: ERFILM, Dosing Weight 65, kg, ONCE, Apply behind ear. Avoid use in elderly., Start date: 01/29/18 10:11:00 CDT, Stop date: 01/29/18 10:11:00 CDT [facility] [place] Meperidine 2018-01-29 15:11:00 No 12.5 mg, Route: IVP, Q30Min, Dosing Weight 65, kg, PRN Other -See Comment, For shivering, Start date: 01/29/18 10:11:00 CDT, Duration: 2 doses or times, Stop date: Limited # of times [facility] Diphenhydramine 2018-01-29 15:11:00 No 12.5 mg, Route: IVP, Drug form: INJ, Q6H, Dosing Weight 65, kg, PRN Itching, Start date: 01/29/18 10:11:00 CDT, Duration: 30 day, Stop date: 02/28/18 10:10:00 CDT [facility] Promethazine 2018-01-29 15:11:00 No 6.25 mg, Route: IVPB, ONCE, Dosing Weight 65, kg, PRN Nausea & Vomiting, Start date: 01/29/18 10:11:00 CDT [facility] Ondansetron 2018-01-29 15:11:00 No 4 mg, Route: IVP, ONCE, Dosing Weight 65, kg, PRN Nausea & Vomiting, Start date: 01/29/18 10:11:00 CDT [facility] Naloxone 2018-01-29 15:11:00 No 0.4 mg, Route: IVP, Q2MIN, Dosing Weight 65, kg, PRN Narcotic Reversal, Start date: 01/29/18 10:11:00 CDT, Duration: 8 doses or times, Stop date: Limited # of times [facility] Flumazenil 2018-01-29 15:11:00 No 0.2 mg, Route: IVP, PRN, Dosing Weight 65, kg, PRN Benzodiazepine Reversal, Initial dose, Start date: 01/29/18 10:11:00 CDT, Duration: 30 day, Stop date: 02/28/18 10:10:00 CDT [facility] Fentanyl 2018-01-29 15:11:00 No 50 microgram, Route: IVP, Q5Min, Dosing Weight 65, kg, PRN Pain Score 7-10, Priority: Routine, Start date: 01/29/18 10:11:00 CDT, Duration: 2 doses or times, Stop date: Limited # of times [facility] Hydromorphone 2018-01-29 15:11:00 No 0.5 mg, Route: IVP, Q5Min, Dosing Weight 65, kg, PRN Pain Score 7-10, Start date: 01/29/18 10:11:00 CDT, Duration: 4 doses or times, Stop date: Limited # of times [facility] Oxycodone 2018-01-29 15:11:00 No 10 mg, Route: PO, Drug form: TAB, Q4H, Dosing Weight 65, kg, PRN Pain Score 7-10, Start date: 01/29/18 10:11:00 CDT, Duration: 30 day, Stop date: 02/28/18 10:10:00 CDT [facility] Morphine 2018-01-29 15:11:00 No 2 mg, Route: IVP, Q5Min, Dosing Weight 65, kg, PRN Pain Score 4-6, Start date: 01/29/18 10:11:00 CDT, Duration: 5 doses or times, Stop date: Limited # of times [facility] Calcium Chloride 0.0014 MEQ/ML / Potassi um Chloride 0.004 MEQ/ML / Sodium Chloride 0.103 MEQ/ML / Sodium Lactate 0.028 MEQ/ML Injectable Solution 2018-01-29 15:11:00 No 1,000 mL, Rate: 125 ml/hr, Infuse over: 8 hr, Route: IV, Dosing Weight 65 kg, Total Volume: 1,000, Start date: 01/29/18 10:11:00 CDT, Duration: 30 day, Stop date: 02/28/18 10:10:00 CDT, 1.62, m2 [facility] Acetaminophen 2018-01-29 15:11:00 No 1,000 mg, Route: IVPB, Drug form: INJ, ONCE, Dosing Weight 65, kg, PRN Pain Score 1-3, Start date: 01/29/18 10:11:00 CDT [facility] Ketorolac 2018-01-29 15:11:00 No 30 mg, Route: IVP, ONCE, Dosing Weight 65, kg, Start date: 01/29/18 10:11:00 CDT, Stop date: 01/29/18 10:11:00 CDT [facility] glycopyrrolate ([facility]) 2018-01-29 14:59:00 No Route: IV, Drug form: INJ, ONCE, Stop date: 01/29/18 9:59:00 CDT [facility] neostigmine ([facility]) 2018-01-29 14:59:00 No Route: IV, Drug form: INJ, ONCE, Stop date: 01/29/18 9:59:00 CDT [facility] Naloxone 2018-01-29 14:50:00 No Notes: Same as Narcan [facility] Morphine 2018-01-29 14:50:00 No Notes: Dose: Delay: Basal rate: 4hr limit: (Same as:Hair) [facility] Calcium Chloride 0.0014 MEQ/ML / Potassi um Chloride 0.004 MEQ/ML / Sodium Chloride 0.103 MEQ/ML / Sodium Lactate 0.028 MEQ/ML Injectable Solution 2018-01-29 14:50:00 No 1,000 mL, Rate: 125 ml/hr, Infuse over: 8 hr, Route: IV, Dosing Weight 65 kg, Total Volume: 1,000, Start date: 01/29/18 9:50:00 CDT, Duration: 30 day, Stop date: 02/28/18 9:49:00 CDT, 1.62, m2 [facility] albuterol ([facility]) 2018-01-29 14:40:00 No Route: ENDOTRACHEAL, Drug form: AERO/A, ONCE, Stop date: 01/29/18 9:40:00 CDT [facility] ePHEDrine (ANES) 2018-01-29 14:30:00 No Route: IV, Drug form: INJ, ONCE, Stop date: 01/29/18 9:30:00 CDT Pa kashif Brunson lidocaine (ANES) 2018-01-29 13:40:00 No Route: IV, Drug form: INJ, ONCE, Stop date: 01/29/18 8:40:00 CDT Pa kashif Brunson propofol (ANES) 2018-01-29 13:40:00 No Route: IV, Drug form: INJ, ONCE, Stop date: 01/29/18 8:40:00 CDT Pa kashif Brunson fentaNYL (ANES) 2018-01-29 13:40:00 No Route: IV, Drug form: INJ, ONCE, Stop date: 01/29/18 8:40:00 CDT Pa kashif Brunson rocuronium (ANES) 2018-01-29 13:40:00 No Route: IV, Drug form: INJ, ONCE, Stop date: 01/29/18 8:40:00 CDT Pa kashif Brunson metoclopramide (ANES) 2018-01-29 13:40:00 No Route: IV, Drug form: INJ, ONCE, Stop date: 01/29/18 8:40:00 CDT [facility] dexamethasone (ANES) 2018-01-29 13:35:00 No Route: IV, Drug form: INJ, ONCE, Stop date: 01/29/18 8:35:00 CDT [facility] midazolam (ANES) 2018-01-29 13:35:00 No Route: IV, Drug form: SOLN, ONCE, Stop date: 01/29/18 8:35:00 CDT Pa kashif Brunson famotidine (ANES) 2018-01-29 13:35:00 No Route: IV, Drug form: INJ, ONCE, Stop date: 01/29/18 8:35:00 CDT Pa kashif Brunson acetaminophen (ANES) 10 mg 2018-01-29 13:25:00 No Route: IV, Drug form: INJ, Start date: 01/29/18 8:25:00 CDT, Stop date: 01/29/18 9:25:00 CDT [facility] gentamicin (ANES) 40 mg 2018-01-29 12:51:00 No Route: IV, Drug form: INJ, Start date: 01/29/18 7:51:00 CDT, Stop date: 01/29/18 8:51:00 CDT [facility] Cleocin Phosphate (ANES) 900 mg 2018-01-29 12:51:00 No Route: IV, Drug form: INJ, Start date: 01/29/18 7:51:00 CDT, Stop date: 01/29/18 8:51:00 CDT [facility] Lactated Ringers Injection IV (ANES) 1000 mL 2018-01-29 12:20:00 No Route: IV, Total Volume: 1,000, Start date: 01/29/18 7:20:00 CDT, Stop date: 01/29/18 8:20:00 CDT [facility] Pyridium 2018-01-29 11:12:00 No 200 mg, Route: PO, ONCE, Dosing Weight 65, kg, Start date: 01/29/18 6:12:00 CDT, Stop date: 01/29/18 6:12:00 CDT [facility] Calcium Chloride 0.0014 MEQ/ML / Potassi um Chloride 0.004 MEQ/ML / Sodium Chloride 0.103 MEQ/ML / Sodium Lactate 0.028 MEQ/ML Injectable Solution 2018-01-29 10:57:00 No 1,000 mL, Rate: 25 ml/hr, Infuse over: 40 hr, Route: IV, Dosing Weight 65 kg, Total Volume: 1,000, Start date: 01/29/18 5:57:00 CDT, Duration: 30 day, Stop date: 02/28/18 5:56:00 CDT, 1.62, m2 [facility] Valsartan-HCTZ 2018-01-27 16:00:00 Yes Valsartan-HCTZ, Refill(s) 0 [facility] Celexa 2018-01-27 15:56:00 Yes PO, Daily, 0 Refill(s) [facility] Hydrochlorothiazide 25 MG / valsartan 160 MG Oral Tablet 2018-01-27 15:56:00 No 1 tab, PO, Daily, 0 Refill(s) [facility] ketOROLAC 30 mg/mL injectable solution 2017-11-12 05:14:00 [...] Take 10 mg by mouth daily. [facility] albuterol (VENTOLIN HFA,PROVENTIL HFA,PROAIR HFA) 90 mcg/act uation inhaler 2015-12-30 00:00:00 Yes Cough 2{puff} Inhale 2 Puffs by mouth 4 times daily as needed for Wheezing. [facility] Duloxetine Hcl (Cymbalta) 20 Mg Capcr Duloxetine Hcl (Cymbalta) 20 Mg Capcr Yes 20 Daily [facility] Lisinopril (Prinivil) 10 Mg Tablet Lisinopril (Prinivil) 10 Mg Tablet Yes 10 Daily [facility] Nifedipine (Nifedipine Er) 30 Mg Tablet.er Nifedipine (Nifedipine Er) 30 Mg Tablet.er Yes [address] [facility] Citalopram Hydrobromide (Celexa) 20 Mg Tablet, 20 Mg O ral Citalopram Hydrobromide (Celexa) 20 Mg Tablet, 20 Mg Oral 2019-06-22 00:00:00 No 20 Daily [facility] Gabapentin 100 Mg Capsule, 100 Mg Oral Gabapentin 100 Mg Capsule , 100 Mg Oral 2012-07-22 00:00:00 No 100 Daily [facility] Vital Signs Vital Name Observation Time Observation Value Comments Source Respitory Rate 2018-01-30 13:18:00 Mickie Peguero Systolic (mm Hg) 2018-01-30 12:45:00 Tyson Brunson Diastolic (mm Hg) 2018-01-30 12:45:00 Mem rafiq Brunson Respitory Rate 2018-01-30 12:45:00 [facility] [place] Heart Rate 2018-01-30 12:45:00 [facility] Temperature Oral (F) 2018-01-30 12:45:00 98.3 F [facility] Heart Rate 2018-01-30 04:23:00 [facility] Temperature Oral (F) 2018-01-30 04:23:00 98.9 F [facility] [place] Systolic (mm Hg) 2018-01-30 04:23:00 Tyson rial [place] Diastolic (mm Hg) 2018-01-30 04:23:00 Mem orial [place] Respitory Rate 2018-01-30 04:23:00 [facility] [place] Systolic (mm Hg) 2018-01-29 21:16:00 Tyson rial [place] Diastolic (mm Hg) 2018-01-29 21:16:00 Mem orial [place] Temperature Oral (F) 2018-01-29 21:16:00 98.0 F [facility] Heart Rate 2018-01-29 21:16:00 [facility] BMI Calculated 2018-01-27 15:23:00 [facility] Height 2018-01-27 15:23:00 139.7 cm [facility] [place] Weight 2018-01-27 15:23:00 [facility] [place] Systolic (mm Hg) 2017-11-12 07:08:00 Tyson rial Boy Diastolic (mm Hg) 2017-11-12 07:08:00 Mem orial [place] Respitory Rate 2017-11-12 07:08:00 [facility] [place] Systolic (mm Hg) 2017-11-12 04:33:00 Tyson rial [place] Diastolic (mm Hg) 2017-11-12 04:33:00 Mem orial [place] Respitory Rate 2017-11-12 04:33:00 [facility] [place] Systolic (mm Hg) 2017-11-12 03:30:00 Tyson rial [place] Diastolic (mm Hg) 2017-11-12 03:30:00 Mem orial [place] Respitory Rate 2017-11-12 03:00:00 [facility] Heart Rate 2017-11-12 02:34:00 [facility] Height 2017-11-11 22:23:00 139.7 cm [facility] [place] BMI Calculated 2017-11-11 22:23:00 [facility] [place] Weight 2017-11-11 22:23:00 [facility] Heart Rate 2017-11-11 22:23:00 [facility] Temperature Oral (F) 2017-11-11 22:23:00 98.4 F [facility] Procedures Procedure Date / Time Performed Performing Clinician [facility] e Computed tomography of brain without radiopaque contrast 201 03-26-09 00:00:00 DANY STOKES [facility] X-ray of chest, two views 2019-06-22 00:00:00 DANY STOKES CH [facility] Cholecystectomy [facility] Cystoscopy [facility] Dilation and curettage [facility] Excision of synovial cyst [facility] [place] Tubal ligation [facility] Plan of Care Planned Activity Planned Date Details Comments Source [facility] Scheduled Test 2020-04-14 00:00:00 IMM Influenza Seas onal Apr to September (>/= 19 yrs) [code = IMM Influenza Seasonal Apr to September (>/= 19 yrs)] [facility] Scheduled Test 2010 00:00:00 Breast Cancer Scrn (Yearly) [code = Breast Cancer Scrn (Yearly)] [facility] Scheduled Test 2008-09-26 00:00:00 Screening for john gnant neoplasm of cervix (procedure) [code = 893377422] [facility] Scheduled Test 2000 00:00:00 Screening for john gnant neoplasm of cervix (procedure) [code = 246291596] [facility] Encounters Start Date/Time End Date/Time Encounter Type Admission Type Attendi [facility] Care Department Encounter ID Source 2020-02-02 13:37:00 2020-02-02 23:59:00 Outpatient Gilberto Chin [id number] 2020-01-18 07:04:00 2020-01-18 23:59:00 [id number] 2019-06-22 17:29:00 2019-06-22 19:30:00 Departed Emergency Room 1 DANY STOKES [facility] [id number] [facility] 2018-01-29 09:50:00 2018-01-30 14:52:00 Outpatient Zev Chin SE SE [id number] 2017-12-20 14:46:00 2017-12-20 23:59:00 Outpatient Zev Chin MHO[facility]UST[facility] [id number] 2017-11-11 17:12:00 2017-11-12 02:16:00 [facility] [id number] 2017-11-11 17:12:00 2017-11-12 02:16:00 Outpatient Jessie [facility]Connero [facility] [id number] 2016-08-02 12:45:00 2016-08-02 23:59:00 Outpatient Valerio Cain [facility] [id number] 2016-06-04 08:33:00 2016-06-04 23:59:00 Outpatient Valerio Cain 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 Room/Bed: [place] [address] Procedure: [id number] CT/CT ABDOMEN/PELVIS W Exam Date: 05/16/20 Exam [...] NP CHEST SINGLE (PORTABLE) 2020-05-14 13:35:00 [facility]ENTER[facility]: AVINASH STEWART : 1970 Sex: F [facility] [address] [place] [address] Patient Name: AVINASH STEWART MR #: [id number] : 1970 Age/Sex: 49/F Req #: [id number] Adm Physician: Ordered by: DANY STOKES MD Report #: [id number] Location: ER Room/Bed: Procedure: [id number] DX/CHEST SINGLE (PORTABLE) Exam Date: 05/14/20 Exam [...] MD CT BRAIN WO 2020-05-14 12:46:00 [facility] CENTERName: AVINASH STEWART : 1970 Sex: [place] [address] Patient Name: AVINASH STEWART MR #: [id number] : 1970 Age/Sex: 49/F Req #: [id number] Adm Physician: Ordered by: DANY STOKES MD Report #: [id number] Location: Room/Bed: Procedure: [id number] CT/CT BRAIN WO Exam Date: 05/14/20 Exam [...] (test code = 5821-4) 6-10 0-5 H [facility] [id number] 18:51:00* Test Item Value Reference Range Interpretation Comments Urine RBC (test code = 30844-6) 6-10 0-5 H [facility] [id number] 18:51:00* Test Item Value Reference Range Interpretation Comments Urine Bacteria (test code = 45753-7) RARE NONE [facility] Epithelial [id number] 18:51:00 * Test Item Value Reference Range Interpretation Comments Urine Epithelial Cells (test code = 67050-7) MODERATE NONE [facility] 2 [id number] 18:49:00 [facility] [address] [address] Patient Name: AVINASH STEWART MR #: [id number] : 1970 Age/Sex: 48/F Req #: [id number] Adm Physician: Ordered by: DANY STOKES MD Report #: [id number] Location: ER Room/Bed: Procedure: [id number] D X/CHEST 2 VIEWS Exam Date: 06/22/19 [...] 06/22/191848 COPY TO: DANY STOKES MD Urine [id number] 18:41:00* Test Item Value Reference Range Interpretation Comments Urine Color (test code = 5778-6) YELLOW YELLOW [facility] [id number] 18:41:00* Test Item Value Reference Range Interpretation Comments Urine Clarity (test code = 77885-6) SL CLOUDY CLEAR [facility] Specific [id number] 18:41:00 * Test Item Value Reference Range Interpretation Comments Urine Specific [place] (test code = 5811-5) 1.010 1.010-1.02 5 [facility] [id number] 18:41:00* Test Item Value Reference Range Interpretation Comments Urine pH (test code = 83247-5) 6 5-7 [facility] Leukocyte [id number] 18:41:00* Test Item Value Reference Range Interpretation Comments Urine Leukocyte Esterase (test code = 5799-2) NEGATIVE NEGATIVE [facility] [id number] 18:41:00* Test Item Value Reference Range Interpretation Comments Urine Nitrite (test code = 05661-0) NEGATIVE NEGATIVE [facility] [facility] CampusUrine Vjffvys1341-59-50 18:41:00* Test Item Value Reference Range Interpretation Comments Urine Protein (test code = 5804-0) NEGATIVE NEGATIVE [facility] CampusUrine Glucose (UA)2019-06-22 18:41:00* Test Item Value Reference Range Interpretation Comments Urine Glucose (UA) (test code = 2349-9) NEGATIVE NEGATIVE [facility] CampusUrine Ywvggsl8507-85-59 18:41:00* Test Item Value Reference Range Interpretation Comments Urine Ketones (test code = 20980-8) NEGATIVE NEGATIVE [facility] CampusUrine Opiates Txywlg6200-82-49 18:41:00* Test Item Value Reference Range Interpretation Comments Urine Opiates Screen (test code = 22329-4) NEGATIVE NEGATIVE ALL TESTS PERFORMED MANUALLY ON Multiplicom TOX/SEE TESTThe [facility] CampusUrine Barbiturates Xsbnlw1101-95-24 18:41:00* Test Item Value Reference Range Interpretation Comments Urine Barbiturates Screen (test code = 105708316) NEGATIVE NEGA TIVE [facility] CampusUrine Phencyclidine Svpeft5561-59-44 18:41:00* Test Item Value Reference Range Interpretation Comments Urine Phencyclidine Screen (test code = 10043-3) NEGATIVE NEGAT KENIA [facility] CampusUrine Amphetamines Iocrqh8491-61-04 18:41:00* Test Item Value Reference Range Interpretation Comments Urine Amphetamines Screen (test code = 58090-5) NEGATIVE NEGATI VE [facility] CampusUrine Methamphetamines Siendy5632-85-11 18:41:00* Test Item Value Reference Range Interpretation Comments Urine Methamphetamines Screen (test code = Urine Metha mphetamines Screen) NEGATIVE NEGATIVE [facility] CampusUrine Benzodiazepines Tmvcer5094-65-10 18:41:00* Test Item Value Reference Range Interpretation Comments Urine Benzodiazepines Screen (test code = 27742-6) NEGATIVE NEG ATIVE [facility] CampusUrine Cocaine Suiicw1317-87-60 18:41:00* Test Item Value Reference Range Interpretation Comments Urine Cocaine Screen (test code = 3398-5) NEGATIVE NEGATIVE [facility] CampusUrine Cannabinoids Brgmpn0945-17-44 18:41:00* Test Item Value Reference Range Interpretation Comments Urine Cannabinoids Screen (test code = 95094-5) NEGATIVE NEGATI VE THESE RESULTS ARE FOR MEDICAL TREATMENT ONLYTHIS REPORT CONTAINS UNCONFIR MED SCREENING RESULTS*POSITIVE RESULTS WILL BE CONFIRMED BY REFERENCE LAB UPON R EQUEST CUT-OFFDRUG CLASS CONCENTRATION ng/mLAmphetamines 1000Methamphetamines 1000Cocaine 300Opiate 300Phencyc lidine 25Cannabinoid 50Barbiturates 300Benzodiazepine 300Methadone 300[facility] CampusUrine Methadone Muteei8142-82-81 18:41:00* Test Item Value Reference Range Interpretation Comments Urine Methadone Screen (test code = 21791-5) NEGATIVE NEGATIVE THESE RESULTS ARE FOR MEDICAL TREATMENT ONLYTHIS REPORT CONTAINS UNCONFIR MED SCREENING RESULTS*POSITIVE RESULTS WILL BE CONFIRMED BY REFERENCE LAB UPON R EQUEST CUT-OFFDRUG CLASS CONCENTRATION ng/mLAmphetamines 1000Methamphetamines 1000Cocaine Metabolite 300Opiate 300Phencyc lidine 25Cannabinoid 50Barbiturates 300Benzodiazepine 300Methadone 300[facility] CampusUrine Qvlhmacxlmtc6489-98-92 18:41:00* Test Item Value Reference Range Interpretation Comments Urine Urobilinogen (test code = 51267-8) 0.2 0.2-1 [facility] CampusUrine Xndpfmacs1596-99-16 18:41:00* Test Item Value Reference Range Interpretation Comments Urine Bilirubin (test code = 1978-6) NEGATIVE NEGATIVE [facility] CampusUrine Sqbhc1157-91-73 18:41:00* Test Item Value Reference Range Interpretation Comments Urine Blood (test code = 24919-7) NEGATIVE NEGATIVE [facility] Childrenodium Gxnjb6975-88-53 18:39:00* Test Item Value Reference Range Interpretation Comments Sodium Level (test code = 2951-2) 137 136-145 [facility] CampusPotassium Ofuwz8136-40-23 18:39:00* Test Item Value Reference Range Interpretation Comments Potassium Level (test code = 2823-3) 3.4 3.5-5.1 L [facility] CampusChloride Cjqof2798-35-60 18:39:00* Test Item Value Reference Range Interpretation Comments Chloride Level (test code = 2075-0) 102 98-107 [facility] CampusCarbon Dioxide Xtweu1166 18:39:00* Test Item Value Reference Range Interpretation Comments Carbon Dioxide Level (test code = 2028-9) 24 22-29 [facility] CampusAnion Svg7526-24-06 18:39:00* Test Item Value Reference Range Interpretation Comments Anion Gap (test code = 94897-9) 14.4 8-16 [facility] CampusBlood Urea Cxrvyikd6103-43-86 18:39:00* Test Item Value Reference Range Interpretation Comments Blood Urea Nitrogen (test code = 3094-0) 11 7-26 [facility] CampusCreatinine2019-12-09 18:39:00* Test Item Value Reference Range Interpretation Comments Creatinine (test code = 2160-0) 0.71 0.57-1.11 [facility] CampusBUN/Creatinine Hmepv7901-31-86 18:39:00* Test Item Value Reference Range Interpretation Comments BUN/Creatinine Ratio (test code = 3097-3) 15 6-25 [facility] CampusEstimat Glomerular Filtration Rate 2019-06-22 18:39:00* Test Item Value Reference Range Interpretation Comments Estimat Glomerular Filtration Rate (test code = 616356335) > 60 >60 Ranges were taken from the National Kidney Disease Education Program and the [facility] Foundation literature.Reference ranges:60 or greater: Omwxdb77-63 ( for 3 consecutive months): Chronic kidney disease 15 or less: Kidney failureThe University of [facility] CampusGlucose Wyfwz4184-13-70 18:39:00* Test Item Value Reference Range Interpretation Comments Glucose Level (test code = OJQ2649) 103 74-118 [facility] CampusCalcium Wdcil2447-85-06 18:39:00* Test Item Value Reference Range Interpretation Comments Calcium Level (test code = 47894-9) 9.8 8.4-10.2 [facility] CampusTotal Tskepfltp8432-81-18 18:39:00* Test Item Value Reference Range Interpretation Comments Total Bilirubin (test code = 1975-2) 0.4 0.2-1.2 [facility] CampusAspartate Amino Transf (AST/SGOT) 2019-06-22 18:39:00* Test Item Value Reference Range Interpretation Comments Aspartate Amino Transf (AST/SGOT) (test code = Aspartate Amino Transf (AST/SGOT)) 23 5-34 [facility] CampusAlanine Aminotransferase (ALT/SGPT) 2019-06-22 18:39:00* Test Item Value Reference Range Interpretation Comments Alanine Aminotransferase (ALT/SGPT) (test code = 1742-6) 50 0-55 [facility] CampusTotal Bvfrnyu3598-87-84 18:39:00* Test Item Value Reference Range Interpretation Comments Total Protein (test code = 2885-2) 7.3 6.5-8.1 [facility] CampusAlbumin2019-12-09 18:39:00* Test Item Value Reference Range Interpretation Comments Albumin (test code = 1751-7) 4.1 3.5-5.0 [facility] CampusGlobulin2019-12-09 18:39:00* Test Item Value Reference Range Interpretation Comments Globulin (test code = 19347-8) 3.2 2.3-3.5 [facility] CampusAlbumin/Globulin Otefw8657-48-37 18:39:00 * Test Item Value Reference Range Interpretation Comments Albumin/Globulin Ratio (test code = 1759-0) 1.3 0.8-2.0 [facility] CampusAlkaline Wkjybmhyhyr3701-19-38 18:39:00* Test Item Value Reference Range Interpretation Comments Alkaline Phosphatase (test code = 6768-6) 115 40-150 [facility] CampusCreatine Wszyrk9483-42-42 18:39:00* Test Item Value Reference Range Interpretation Comments Creatine Kinase (test code = 2157-6) 85 29-168 [facility] CampusCreatine Kinase VJ0590-01-12 18:39:00* Test Item Value Reference Range Interpretation Comments Creatine Kinase MB (test code = 59168-6) 0.90 0-5.0 [facility] CampusTroponin P0566-83-97 18:39:00* Test Item Value Reference Range Interpretation Comments Troponin I (test code = MLA6655) < 0.001 0-0.300 [facility] CampusCT BRAIN TV7450-41-49 18:25:00 [facility] [address] [place] [address] Patient Name: AVINASH STEWART MR #: [id number] : 1970 Age/Sex: 48/F Req #: [id number] Adm Physician: Ordered by: DANY STOKES MD Report #: [id number] Location: ER Room/Bed: Procedure: [id number] C T/CT BRAIN WO Exam Date: Exam [...] 6:26 PM Dictated By: JUDY CALLE MD [facility] Signed By: JUDY CALLE MD on 06/22/191825 Transcribed By: KADY on 1825 COPY TO: DANY STOKES MD Prothrombin Yigr8108-53-13 18:18:00* Test Item Value Reference Range Interpretation Comments Prothrombin Time (test code = 5902-2) 11.9 11.9-14.5 [facility] CampusProthromb Time International Ratio 2019-06-22 18:18:00* Test Item Value Reference Range Interpretation Comments Prothromb Time International Ratio (test code = 6301-6) 0.83 Oral Anticoagulant Therapy INR Values:1. Low Intensity Therapy 1.5 - 2.02 . Moderate Intensity Therapy 2.0 - 3.03. High Intensity Therapy(1) 2.5 - 3. 54. High Intensity Therapy(2) 3.0 - 4.05. Panic Value INR > 5.0 [facility] CampusActivated Partial Thromboplast Time 2019-06-22 18:18:00* Test Item Value Reference Range Interpretation Comments Activated Partial Thromboplast Time (test code = 29797-2) 25.3 23.8-35.5 [facility] CampusWhite Blood Kbsdp5560-92-45 18:12:00* Test Item Value Reference Range Interpretation Comments White Blood Count (test code = 6690-2) 9.15 4.8-10.8 [facility] CampusRed Blood Mlqjo1013-78-98 18:12:00* Test Item Value Reference Range Interpretation Comments Red Blood Count (test code = 789-8) 4.79 3.6-5.1 [facility] CampusHemoglobin2019-12-09 18:12:00* Test Item Value Reference Range Interpretation Comments Hemoglobin (test code = 58916-1) 14.0 12.0-16.0 [facility] CampusHematocrit2019-12-09 18:12:00* Test Item Value Reference Range Interpretation Comments Hematocrit (test code = 4544-3) 40.9 34.2-44.1 [facility] CampusMean Corpuscular Zucrue0493-00-45 18:12:00* Test Item Value Reference Range Interpretation Comments Mean Corpuscular Volume (test code = 787-2) 85.4 81-99 [facility] CampusMean Corpuscular Grkvlpgzqs4172-85-52 18:12:00* Test Item Value Reference Range Interpretation Comments Mean Corpuscular Hemoglobin (test code = 785-6) 29.2 28-32 [facility] CampusMean Corpuscular Hemoglobin Concent 2019-06-22 18:12:00* Test Item Value Reference Range Interpretation Comments Mean Corpuscular Hemoglobin Concent (test code = 786-4) 34.2 31-35 [facility] CampusRed Cell Distribution Lntaw8267-28-84 18:12:00* Test Item Value Reference Range Interpretation Comments Red Cell Distribution Width (test code = 34930-7) 13.4 11.7 -14.4 [facility] CampusPlatelet Qbkov2073-30-13 18:12:00* Test Item Value Reference Range Interpretation Comments Platelet Count (test code = 777-3) 303 140-360 [facility] CampusNeutrophils (%) (Auto)2019-06-22 18:12:00 * Test Item Value Reference Range Interpretation Comments Neutrophils (%) (Auto) (test code = 36686-7) 62.5 38.7-80.0 [facility] CampusLymphocytes (%) (Auto)2019-06-22 18:12:00 * Test Item Value Reference Range Interpretation Comments Lymphocytes (%) (Auto) (test code = 736-9) 26.1 18.0-39.1 [facility] CampusMonocytes (%) (Auto)2019-06-22 18:12:00* Test Item Value Reference Range Interpretation Comments Monocytes (%) (Auto) (test code = 5905-5) 4.8 4.4-11.3 [facility] CampusEosinophils (%) (Auto)2019-06-22 18:12:00 * Test Item Value Reference Range Interpretation Comments Eosinophils (%) (Auto) (test code = 713-8) 5.6 0.0-6.0 [facility] CampusBasophils (%) (Auto)2019-06-22 18:12:00* Test Item Value Reference Range Interpretation Comments Basophils (%) (Auto) (test code = 706-2) 0.7 0.0-1.0 [facility] CampusIM GRANULOCYTES %2019-06-22 18:12:00* Test Item Value Reference Range Interpretation Comments IM GRANULOCYTES % (test code = IM GRANULOCYTES %) 0.3 0.0- 1.0 [facility] CampusNeutrophils # (Auto)2019-06-22 18:12:00* Test Item Value Reference Range Interpretation Comments Neutrophils # (Auto) (test code = 751-8) 5.7 2.1-6.9 [facility] CampusLymphocytes # (Auto)2019-06-22 18:12:00* Test Item Value Reference Range Interpretation Comments Lymphocytes # (Auto) (test code = 15514-3) 2.4 1.0-3.2 [facility] CampusMonocytes # (Auto)2019-06-22 18:12:00* Test Item Value Reference Range Interpretation Comments Monocytes # (Auto) (test code = 742-7) 0.4 0.2-0.8 [facility] CampusEosinophils # (Auto)2019-06-22 18:12:00* Test Item Value Reference Range Interpretation Comments Eosinophils # (Auto) (test code = 711-2) 0.5 0.0-0.4 H [facility] CampusBasophils # (Auto)2019-06-22 18:12:00* Test Item Value Reference Range Interpretation Comments Basophils # (Auto) (test code = 704-7) 0.1 0.0-0.1 [facility] CampusAbsolute Immature Granulocyte (auto 2019-06-22 18:12:00* Test Item Value Reference Range Interpretation Comments Absolute Immature Granulocyte (auto (chu t code = Absolute Immature Granulocyte (auto) 0.03 0-0.1 [facility] CampusCHEM DFIVR9318-45-47 12:35:0098[facility] HermannCHEM JHUBI9228-12-30 12:35:008.5[facility] HermannCHEM YWXRO1377-29-73 12:35:24154Otnafeiz HermannCHEM JWFJG1046-21-05 12:35:0028[facility] HermannCHEM RKJEC3779-59-00 12:35:000.73[facility] HermannCHEM VOULV6373-78-86 12:35:0011 [facility] HermannCHEM CWCDO2334-26-70 12:35:0096[facility] HermannCHEM PANEL 2018-01-30 12:35:40211Foxicvjr HermannCHEM OHCLW4060-50-55 12:35:003.9[facility] HermannCHEM JTHJO0263-44-48 12:35:0014.9[facility] KpvwynlMJRSATLGAG1725-12-69 12:35:0010.0[facility] YndvurqFHZTYSQBBL0034-24-19 12:35:83210Yvknkokb Boy BPLRZOPYWK5724-12-67 12:35:0013.8[facility] QpqytjhKHGSISLPVS2049-27-59 12:35:00 12.1[facility] ClhhrsdKROBNXAYAD0402-36-16 12:35:004.18[facility] HermannHEMATOLOGY 2018-01-30 12:35:0013.1[facility] VdxyzwqLECMWPZLNC9458-59-60 12:35:0033.5[facility] IaogkudZFQTZEURZY6177-02-26 12:35:00* Test Item Value Reference Range Interpretation Comments MCH (test code = MCH) 29.0 pg 27.0-31.0 [facility] TwrynjnLBAGRNRFCL0733-70-79 12:35:0086.7[facility] HermannHEMATOLOGY 2018-01-30 12:35:0036.2[facility] NmwypceLFJICXBFED6443-87-26 12:35:000.7[facility] DjijxdkSHJZFOFRZM7599-63-13 12:35:000.2[facility] WakjlcnIYBZRSMVNT8249-91-33 12:35:000.2[facility] ZuxdxxrUGMQGSLBKA2839-64-65 12:35:002.1[facility] AWOTYUUKXP9664-95-68 12:35:0010.2[facility] CrcuouxCQJVGHLBIX0241-77-50 12:35:00 77.7[facility] VhztzmiWRDWPYPNSM2738-73-48 12:35:005.6[facility] HermannHEMATOLOGY 2018-01-30 12:35:0016.3[facility] RpbddhaLTIVFMZYQATB4245-92-91 15:55:0012.7 [facility] VuvetneBEDFMESHHTRL4252-49-56 15:55:00* Test Item Value Reference Range Interpretation Comments A/G Ratio (test code = A/G Ratio) 1.1 1 0.7-1.6 [facility] CpciidhTUWYOOCTJLDR9078-23-23 15:55:003.1[facility] HermannELECTROLYTES 2018-01-27 15:55:00* Test Item Value Reference Range Interpretation Comments B/C Ratio (test code = B/C Ratio) 14 1 6-25 [facility] OnozbgjDGXAENGHMSJM9622-42-50 15:55:67217Obtuktip HermannELECTROLYTES 2018-01-27 15:55:0010[facility] JvuoeevHKEHANNLAJNA2653-77-91 15:55:003.7[facility] CijtckrUSMTPASMNPLU4292-14-02 15:55:52306Qownishb IubwboeFERLCTWPIXDT9635-01-80 15:55:008.8[facility] KwcaejgWFUVKFLGJJMB7703-79-22 15:55:0027[facility] VNZMHXTFLFAH7199-52-60 15:55:63100Jfbnntjp TwcbpzgJKHZNOCWKTIX8584-32-50 15:55:000.69[facility] MumsefgGNGRNSXZYHQA0305-31-96 15:55:000.7[facility] LQTGKCWYDUAR4855-53-37 15:55:0088[facility] WufktffTKMRHQGDNDBJ8013-81-98 15:55:00 27[facility] MccciiuICTHTVFJKYCR8026-97-08 15:55:0052[facility] HermannELECTROLYTES 2018-01-27 15:55:49141Nsozxuox OperlttRPRGZCCDUIHF9210-42-22 15:55:006.6[facility] CvborcbIGGQSPKCAQEL3293-46-90 15:55:003.5[facility] MylafprCEEUMVHNSUMFO1598-02-38 15:55:00Negative *NA*(01/27/18 10:55 AM)[facility] XzfaemvHMWEVPETXF1620-86-68 15:55:0012.8[facility] DducfreQPQSNSNJXK4553-52-69 15:55:0014.1[facility] KUXSRWKJSX4201-59-18 15:55:007.5[facility] EwwapmqMPDDUZTZSI1414-12-31 15:55:00 38.2[facility] YvuttrqOFANJXEVOI6003-75-76 15:55:0086.0[facility] HermannHEMATOLOGY 2018-01-27 15:55:88324Woiamtnh SpxzfliAUNVCMNBJI0249-21-58 15:55:0010.3[facility] HuoravlOMCGHBNGBB3991-61-99 15:55:0033.6[facility] FpzehzfFWMJMMUIZW9194-82-96 15:55:00* Test Item Value Reference Range Interpretation Comments MCH (test code = MCH) 28.9 pg 27.0-31.0 [facility] LuaitlmYOFLWWYTUF0947-61-72 15:55:004.44[facility] HermannHEMATOLOGY 2018-01-27 15:55:000.3[facility] SqiqefyOIMRTCZFIK5985-61-78 15:55:000.1[facility] PloykldVYOGLNQQGY2491-09-60 15:55:002.2[facility] CsodeveGIZOSNBJIT4739-93-41 15:55:000.5[facility] EikdfxyOLMGMTMDIO3688-70-71 15:55:0029.5[facility] ZDGPJYRQSG5594-63-15 15:55:0059.2[facility] XuqkzxiQYRHGKPQVL9406-66-25 15:55:00 6.1[facility] HnjqmfpDLXCULNCLW5712-65-19 15:55:004.5[facility] HermannHEMATOLOGY 2018-01-27 15:55:004.4[facility] SyyrorhBBSGBZXDIS6410-46-31 15:55:000.7[facility] HermannSPECIAL YMYPZQIQB4139-77-47 15:55:005.7[facility] HermannCARDIAC ENZYMES 2017-11-11 23:07:00<1.0[facility] HermannCARDIAC QLWDWPC6171-55-30 23:07:00<0.02 [facility] HermannCARDIAC GZHEJSO3795-22-50 23:07:00<1.0[facility] HermannCARDIAC FLIMOVY8272-19-90 23:07:02177Xfaduawi HermannCHEM PPJCM1721-09-68 23:07:63671 [facility] HermannCHEM NEQEI3717-40-34 23:07:003.6[facility] HermannCHEM PANEL 2017-11-11 23:07:00* Test Item Value Reference Range Interpretation Comments A/G Ratio (test code = A/G Ratio) 1.1 1 0.7-1.6 [facility] HermannCHEM NUMWE4748-59-64 23:07:77792Yjueuvtr HermannCHEM PANEL 2017-11-11 23:07:13141Fhfigyej HermannCHEM HRXEG6447-21-88 23:07:003.7[facility] HermannCHEM TWNEJ4919-31-30 23:07:000.60[facility] HermannCHEM HAMYX0543-60-73 23:07:0015[facility] HermannCHEM GYJIZ8817-44-89 23:07:0090[facility] HermannCHEM ZCFWB8544-01-89 23:07:003.9[facility] HermannCHEM VTHDZ1438-96-34 23:07:0029 [facility] HermannCHEM JZKYV9179-97-76 23:07:009.6[facility] HermannCHEM PANEL 2017-11-11 23:07:0085[facility] HermannCHEM CFSWV9642-99-65 23:07:000.5[facility] HermannCHEM EQTSI0069-77-99 23:07:008.7[facility] HermannCHEM HARPJ0025-89-60 23:07:007.5[facility] HermannCHEM CDBSS5789-86-24 23:07:0033[facility] HermannCHEM WIMVY1834-98-86 23:07:70317Lnsxfueg HermannCHEM ZNXMG5502-38-71 23:07:00* Test Item Value Reference Range Interpretation Comments B/C Ratio (test code = B/C Ratio) 25 1 6-25 [facility] TpklynbBPYTTOYHRFABM3914-95-60 23:07:00Negative *NA*(11/11/17 6:07 PM) [facility] HziilwuZJLMCCMGBV2687-58-07 23:07:002.8[facility] HermannHEMATOLOGY 2017-11-11 23:07:005.9[facility] DdxqvcxMZMQIJNUYA8669-55-08 23:07:000.6[facility] CaxatxlIKNDVOIASP3068-06-02 23:07:009.2[facility] CflqtipOMGTOSXAPJ8960-80-87 23:07:000.1[facility] SspliupLPRXOORMMV2841-49-15 23:07:001.0[facility] TDWZLCNYHP2972-13-60 23:07:000.6[facility] GhfhqdhPJUSXRSGJG0586-03-83 23:07:005.8 [facility] PvnujgiAEHOIYYAMM4639-45-08 23:07:0027.2[facility] HermannHEMATOLOGY 2017-11-11 23:07:0057.2[facility] YueycnvALMBIUNWYD9299-28-71 23:07:009.2[facility] DeqzldtAMNCHCPUTX2789-51-78 23:07:42022Eyjgwqpo ZloylsmPLULZDEEDW6928-25-29 23:07:0014.0[facility] ThdngmsOTXWGDZPBM6910-45-87 23:07:0033.7[facility] XRFKAZHXYW7509-36-87 23:07:00* Test Item Value Reference Range Interpretation Comments MCH (test code = MCH) 28.9 pg 27.0-31.0 [facility] UsojskbXKJKSGWOFS4031-78-75 23:07:0085.9[facility] HermannHEMATOLOGY 2017-11-11 23:07:0040.3[facility] XwyssypQPRKCWWFYD1223-45-26 23:07:0013.6[facility] JcugczmUYIZFCMSJL2385-91-44 23:07:004.69[facility] UxjgizePCSFWTKRPR9635-46-89 23:07:0010.4[facility]
--- OUTSIDE RECORDS SUMMARY | 2020-05-19 18:21 | XMS REPORT | Clinical Summary ---
Author Author [facility] Organization [facility] Address Unknown Phone Unavailable Care Team Providers Care Counterperson Name Role Phone PCP Unavailable Allergies Comments [...]
== END 2020-05-17 14:40 | disposition home or self-care (01) ==
LOC: ER 12:01 → ERHOLD 14:15 → MED/SURG2 16:12 → IMCU 16:16
PROVIDERS: ADMIT Internal Medicine; ATTEND Internal Medicine
DX: U07.1 COVID-19 (principal); J12.89 Other viral pneumonia; R07.9 Chest pain, unspecified; I10 Essential (primary) hypertension; E78.5 Hyperlipidemia, unspecified; F32.9 Major depressive disorder, single episode, unspecified; Z90.49 Acquired absence of other specified parts of digestive tract; Z96.0 Presence of urogenital implants; Z88.1 Allergy status to other antibiotic agents; Z88.5 Allergy status to narcotic agent; R51.9 Headache, unspecified; E87.6 Hypokalemia; Z86.19 Personal history of other infectious and parasitic diseases; K52.9 Noninfective gastroenteritis and colitis, unspecified; I16.1 Hypertensive emergency; Z57.9 Occupational exposure to unspecified risk factor; R79.89 Other specified abnormal findings of blood chemistry; M79.10 Myalgia, unspecified site; R10.11 Right upper quadrant pain; K76.0 Fatty (change of) liver, not elsewhere classified; Q63.1 Lobulated, fused and horseshoe kidney
CPT/HCPCS: 36415 ×4; 70450; 71045; 74177; 80053 ×2; 80061; 80076 ×3; 81001; 82550 ×2; 82553 ×2; 82728; 83615; 83690; 83735; 84443; 84484 ×2; 85025 ×2; 85384; 85610; 85730; 86140; 87086; 87400; 87420; 93005; 93306; 99284; C9113 ×4; G0378 ×4; J0360; J1650 ×3; J1885; J2405; J2550; J2920; J7030 ×3; Q9967; U0002